=== PATIENT | male | born 1990 | race Caucasian/White ===

== ENCOUNTER 2016-08-03 13:25 | Emergency (ER) | payer OTHER ==
[~2016-08-03] VITALS: Ht 175.3 cm; Wt 71.0 kg
[~2016-08-03 13:25] MED LIST: AMLO-110 PO; SRQ/200 PO
[2016-08-03 13:29] VITALS: TEMP 36.7; Ht 175.3 cm; Wt 71.0 kg
[2016-08-03 14:28] VITALS: BP 127/82; PULSE 75; O2SAT 97
--- NOTE | 2016-08-03 17:02 | EMERGENCY ROOM VISIT NOTE ---
ED Visit Note First contact with patient: 13:59 Chief complaint: Left long finger tip laceration HPI: This 26-year-old white male presents for evaluation of a laceration on the tip of his left long finger. 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 He accidentally cut the tip of his left long finger. Bleeding was controlled with pressure. They deny any numbness, tingling, or loss of motion. No other complaints. Tetanus is believed to be up -to-date. Pain is 1/10. Left hand dominant. No other fingers are involved. Supplemental sheet was reviewed and signed. Previous surgeries: None Medical history: Significant for stage IV kidney disease Current Medications: Filed in patient's chart Allergies: NKDA Tetanus: within 10 years according to the patient Family History: Significant for cancer and kidney stones. Parents are living. Social History: Employed at [employer]. Lives with his girlfriend. No tobacco use , no EtOH use. REVIEW OF SYSTEM: HEENT: No dizziness, visual problems, hearing loss, or tinnitus. There is no difficulty swallowing and no oral lesions are present. PULMONARY: No cough, shortness of breath, sputum production or hemoptysis. CARDIOVASCULAR: No chest pain, palpitations, shortness of breath or peripheral edema. GASTROINTESTINAL: No diarrhea, constipation, nausea, vomiting, or abdominal pain. GENITOURINARY: No dysuria, frequency, urgency or nocturia. NEUROLOGIC: No weakness, muscle tenderness, epilepsy or history of neurological problems. MUSCULOSKELETAL: No history of joint tenderness/swelling. No history of arthritis or arthralgias. SKIN: No rashes or lesions. PSYCHIATRIC: No history of depression or mental illness. ENDOCRINE: No history of diabetes, thyroid disorders, or abnormal hair growth. Physical Exam: Vitals: Afebrile. Reviewed and filed in patient's chart General: Well-developed, well-nourished, young white male, in no acute distress. No obvious discomfort. He is sitting on the bed. Alert and oriented. Skin: Warm and dry with good turgor. No rashes. No ecchymosis or erythema. The patient is not diaphoretic. No abrasions. The patient has a 6 mm laceration present on the tip of his left long finger. Bleeding is controlled. No foreign material is present.. Musculoskeletal: Patient has intact motor function to the long finger. Intact motion to the MCP, PIP, and DIP joints. Strength is 5/5 for resisted flexion and extension of the long finger. Neurologic: Gross sensation is intact across the tip of the long finger by soft touch. Capillary refill is equal to the other digits.. Impression: Left long finger tip 6 mm laceration Procedure: Informed oral consent was obtained for repair. Long fingertip was irrigated using normal sterile saline and sterile gauze. A finger tourniquet was applied to control bleeding. Wound was closed using Dermabond in multiple layers. Excellent wound edge approximation was achieved. Hemostasis was achieved. Tourniquet was in place for less than 5 minutes. Plan: Patient was educated regarding today's findings. Conservative care measures were discussed. Cleanse the wound daily with soap and water. Avoid antibiotic ointment. Dermabond will wear off on its own. He may shower. Dermabond handout was provided. He may return to work. Tylenol every 6 hours as needed for discomfort. He may also Ice and elevate intermittently as needed for discomfort. Wound care handout was provided. He may shower. Avoid soaking or swimming for two weeks. Return to the ER for any acute changes or signs of infection. Current/Historical Medications Scheduled Amlodipine (Norvasc), 5 MG PO HS Allergies Coded Allergies: No Known Allergies (Unverified , 10/31/15) Vital Signs Date Time Temp Pulse Resp B/P (MAP) Pulse Ox O2 Delivery O2 Flow Rate FiO2 08/03/16 14:28 75 18 127/82 97 08/03/16 13:29 36.7 81 18 143/87 96 Room Air Departure Information Impression Primary Impression: Finger laceration Dispostion Home / Self-Care Condition FAIR Forms WORK / SCHOOL INSTRUCTIONS, HOME CARE DOCUMENTATION FORM, MOTRIN USE, TYLENOL USE, IMPORTANT VISIT INFORMATION Patient Instructions [facility], ED Laceration Ext Skin Glue Additional Instructions Tylenol and Motrin every 6 hours as needed for discomfort Dermabond will fall off on its own in 5-7 days-do not pick at it You may wash your hands normally-do not apply antibiotic ointment to the finger Return to the ED for any other concerns or signs of infection You may return to work
== END 2016-08-03 14:30 | disposition home or self-care (01) ==
LOC: C.EDB 13:27 → C.EDD 14:30
DX: S61.213A Laceration without foreign body of left middle finger without damage to nail, initial encounter (principal); W26.8XXA Contact with other sharp object(s), not elsewhere classified, initial encounter; Y92.511 Restaurant or cafe as the place of occurrence of the external cause; Y99.0 Civilian activity done for income or pay

== ENCOUNTER 2017-07-06 21:15 | Emergency (ER) | payer SELFPAY ==
[~2017-07-06] VITALS: Ht 175.3 cm; Wt 65.7 kg
[~2017-07-06 21:15] MED LIST changes: -SRQ/200 PO
[2017-07-06 21:52] VITALS: TEMP 36.7; Ht 175.3 cm; Wt 65.7 kg
[2017-07-06] MEDS ORDERED: MoRPHine SULFATE 4 MG/ML 1 ML CARP\\VIAL IV STA (22:08)
[2017-07-06] MEDS ORDERED: ONDANSETRON INJ 2 MG/ML 2 ML VIAL IV STA (22:08)
[2017-07-06 22:44] LABS: BASO % 0.3 %; BASO ABS # 0.02 K/uL (0-0.2); EOS % 1.9 %; EOS ABS # 0.13 K/uL (0-0.5); HEMATOCRIT 37.9 % (42-52); HEMOGLOBIN 12.9 g/dL (14.0-18.0); IG# 0.01 K/uL (0.00-0.02); LYMPH % 28.7 %; LYMPH ABS # 1.92 K/uL (1.2-3.4); MEAN CELL VOLUME 85.7 fL (80-100); MEAN CORPUSCULAR HEMOGLOBIN 29.2 pg (25-34); MEAN PLATELET VOLUME 10.1 fL (7.4-10.4); MONO % 6.1 %; MONO ABS # 0.41 K/uL (0.11-0.59); NEUT % 62.9 %; NEUT ABS # 4.19 K/uL (1.4-6.5); PLATELET COUNT 219 K/uL (130-400); RED CELL DISTRIBUTION WIDTH CV 12.8 % (11.5-14.5); RED CELL DISTRIBUTION WIDTH SD 40.3 fL (36.4-46.3); WHITE BLOOD COUNT 6.68 K/uL (4.8-10.8)
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
[2017-07-06 23:04] LABS: CALCIUM 8.8 mg/dl (8.5-10.1); CREATININE 2.75 mg/dl (0.60-1.40); POTASSIUM 3.9 mmol/L (3.5-5.1)
[2017-07-07] MEDS ORDERED: TROLAMINE SALICYLATE 10% CRM 255 APPLN/85 GM TUBE EXT STA (01:26)
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
[2017-07-07 01:39] VITALS: BP 128/72; PULSE 88; O2SAT 98
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
== END 2017-07-07 01:42 | disposition home or self-care (01) ==
LOC: C.EDB 21:16 → C.EDA 07-07 01:42
DX: M54.42 Lumbago with sciatica, left side (principal); M54.41 Lumbago with sciatica, right side; N18.4 Chronic kidney disease, stage 4 (severe); M51.86 Other intervertebral disc disorders, lumbar region; I12.9 Hypertensive chronic kidney disease with stage 1 through stage 4 chronic kidney disease, or unspecified chronic kidney disease; Z91.14 Patient's other noncompliance with medication regimen

== ENCOUNTER 2021-07-17 15:31 | Inpatient (IN) ==
[2021-07-17 16:33] LABS: Basophils # (auto) 0.02 K/uL (0-0.2); Basophils % (auto) 0.3 %; Eosinophils # (auto) 0.79 K/uL (0-0.5); Eosinophils % (auto) 11.4 %; Hematocrit (blood only) 36.7 % (42-52); Hemoglobin 12.4 g/dL (14.0-18.0); Immature Granulocytes # (auto) 0.01 K/uL (0.00-0.02); Immature Granulocytes % (auto) 0.1 %; Lymphocytes # (auto) 2.26 K/uL (1.2-3.4); Lymphocytes % (auto) 32.8 %; Mean Corpuscular Hemoglobin 29.7 pg (25-34); Mean Corpuscular Hgb Conc 33.8 g/dL (32-36); Mean Platelet Volume 9.4 fL (7.4-10.4); Monocytes # (auto) 0.68 K/uL (0.11-0.59); Monocytes % (auto) 9.9 %; Neutrophils # (auto) 3.14 K/uL (1.4-6.5); Neutrophils % (auto) 45.5 %; Platelet Count 265 K/uL (130-400); RDW Coefficient of Variation 14.7 % (11.5-14.5); RDW Standard Deviation 47.3 fL (36.4-46.3); Red Blood Count 4.17 M/uL (4.7-6.1)
[2021-07-17 17:27] LABS: Albumin Globulin Ratio 1.7 (0.9-2); Albumin Level 4.4 gm/dl (3.4-5.0); BUN Creatinine Ratio 11.5 (10-20); Bilirubin,Total 0.4 mg/dl (0.2-1.0); Calcium 9.4 mg/dl (8.5-10.1); Creatinine Clr Calc Pharmacy 20.5 ml/min; Est GFR (African American) 17.6 ml/min; Est GFR (Non-African American) 15.2 ml/min; Globulin 2.6 gm/dl (2.5-4.0); Potassium 5.8 mmol/L (3.5-5.1)
[2021-07-17] MEDS ORDERED: SODIUM CHLORIDE 0.9% 500 ML IV ONE ×2 (17:48→18:41)
[2021-07-17 18:50] LABS: Base Excess VBG -8.8 mEq/L; HCO3 VBG 19 mmol/L; PCO2 VBG 47 mmHg (38-50); PO2 VBG 23 mmHg; pH VBG 7.22 (7.36-7.41)
[2021-07-17 19:15] LABS: Oxygen Saturation VBG < 60.0 %
[2021-07-17 20:10] LABS: Appearance Urine Clear (Clear); Bilirubin Urine Negative (Negative); Blood Urine Negative (Negative); Color Urine Yellow; Glucose Urine UA Negative (Negative); Ketones Urine Negative (Negative); Leukocyte Esterase Urine Negative (Negative); Nitrite Urine Negative (Negative); Protein Urine Negative (Negative); Specific Gravity Urine 1.014 (1.000-1.030); Urobilinogen Urine Negative (Negative)
[2021-07-17 21:04] LABS: BUN Creatinine Ratio 12.2 (10-20); Calcium 8.6 mg/dl (8.5-10.1); Creatinine Clr Calc Pharmacy 22.1 ml/min; Est GFR (African American) 19.3 ml/min; Est GFR (Non-African American) 16.7 ml/min; Potassium 6.7 mmol/L (3.5-5.1)
[2021-07-17] MEDS ORDERED: SODIUM CHLORIDE 0.9% 1000ML 1,000 ML IV ONE ×2 (21:25→23:54)
[2021-07-17] MEDS ORDERED: LACTATED RINGER'S 1,000 ML IV ONE (21:27)
[2021-07-17] MEDS ORDERED: PATIROMER CALCIUM SORBITEX 8.4 GM PACK PO STA (21:34)
[2021-07-17 22:11] LABS: BUN Creatinine Ratio 12.3 (10-20); Calcium 8.5 mg/dl (8.5-10.1); Creatinine Clr Calc Pharmacy 22.7 ml/min; Est GFR (Non-African American) 17.2 ml/min; Potassium 6.3 mmol/L (3.5-5.1)
[2021-07-17] MEDS ORDERED: DEXTROSE 50% 50 ML SYRINGE IV ONE (22:21)
[2021-07-17] MEDS ORDERED: NovoLIN-R INSULIN PER UNIT CHARGE IV STA (22:21)
[2021-07-17] MEDS: CALCIUM GLUCONATE 1,000 MG/60 ML BAG IV SCH ×3 (22:37→23:16)
--- NOTE | 2021-07-17 22:52 | Emergency Department Note ---
Impression & Plan Hyperkalemia, Acute on chronic renal insufficiency, Hyperchloremia, Acidemia ED Provider Note NAME: AURELIA CURTIS AGE: 31 SEX: M ARRIVES VIA: Walk-In INFORMANT: Jon ED PROVIDER(S): Akil Hewitt MD CHIEF COMPLAINT: Referred. Hyperkalemia. PLAN: Disposition: Admit MEDICAL DECISION MAKING: The patient is a pleasant 39-year-old gentleman with a past medical history of CKD and history of medical noncompliance who presents to the emergency department, accompanied by his partner for evaluation of hyperkalemia which was noted on routine outpatient blood work that was performed yesterday in preparation for an upcoming colonoscopy in August per the patient's report. Patient otherwise denies any symptoms including denies lightheadedness, chest pain, shortness of breath, abdominal pain, changes in urinary frequency. He initially denies any concerns for dehydration or decreased oral intake however he only reports that today he had a red bull and a single bottle of water. The patient was recently admitted to this facility on 07/05 for epididymitis and acute on chronic renal insufficiency. Unfortunately the patient had left AMA prior to recommended time. However he reports he f/u with his pcp and started antibiotic and has had improved/resolved symptoms. On arrival the patient is well appearing but in in no acute distress, afebrile stable vital signs. He appears clinically dry. Exam is otherwise unremarkable. EKG without overt acute ischemia. There is no QRS widening or high-grade block. WBC and platelets wnl. H/H similar to prior. Chemistry with bicarbonate 19 similar to prior with normal agap. Cr. 4.7 slightly increased from prior. Potassium 5.8 increased from 5.4 previously. Chloride 114 increased from prior. Sodium 140. LFTs without significant abnormality. Given the patient is well-appearing and reports he continues to urinate, it was suspected that the patient's hyperkalemia would easily be reversible with hydration. He was given 1 L of normal saline and bmp/K was then rechecked initially on i-STAT BMP which demonstrated a potassium of 6.1. Given this was an i-STAT there was suspicion that this may have been hemolyzed and so a repeat lab sample was sent but this appears to have been drawn from his left upper extremity which is where his blood pressure cuff had been and so despite having an improved trend in his creatinine to 4.3 his potassium resulted at 6.7.Nevertheless, at this point I did meet with the patient and recommended that he be admitted to manage his hyperkalemia. The patient was resistant to this idea because he felt well and so we agreed to repeat a third BMP to assess if the value was erroneous or not. This subsequently was again elevated at 6.3 though with continued improving trend in his creatinine to 4.2.His chloride did uptrend to 118 and his bicarbonate declined to 15 with normal Agap, which likely explains his acidemia noted on VBG with pH 7.2. IVF subsequently switched to LR. I did express to the patient that the potassium of this degree is life- threatening and can result in arrhythmias and cannot be effectively managed outpatient. Patient was still displeased but ultimately did agree to be admitted to the hospital and his partner at the bedside continue to be supportive of this. He had been given Veltassa and was ordered for additional treatment of his hyperkalemia with insulin, D50 and calcium.Case was discussed with Dr. [facility] who will evaluate the patient for admission. Triage Nursing notes reviewed and agree them. Prior medical records reviewed Vital Signs: reviewed and remarkable for no significant abnormalities Differential diagnosis: Infection, dehydration, metabolic abnormality, hypo/hyperglycemia, electrolyte disturbance, anemia, hypoxia, cardiac sources, intracerebral event, toxicologic, neurologic, as well as other pathologies. ER treatment provided: See below. Diagnostics interpreted by me: ECG: Sinus bradycardia with sinus arrhythmia, 58 bpm, no ectopy, no overt ST elevation or depression. QTC 367, QRS 86. Cardiac Monitoring: An order for continuous cardiac monitoring was placed and demonstrated NSR, 63 bpm, no ectopy. Laboratory studies: See below Imaging studies: See below Consultation(s): Case was discussed with Dr. [facility] an[facility] who will evaluate the patient for admission. HPI: The patient is a pleasant 39-year-old gentleman with a past medical history of CKD and history of medical noncompliance who presents to the emergency department, accompanied by his partner for evaluation of hyperkalemia which was noted on routine outpatient blood work that was performed yesterday in preparation for an upcoming colonoscopy in August per the patient's report. Patient otherwise denies any symptoms including denies lightheadedness, chest pain, shortness of breath, abdominal pain, changes in urinary frequency. He initially denies any concerns for dehydration or decreased oral intake however he only reports that today he had a red bull and a single bottle of water. The patient was recently admitted to this facility on 07/05 for epididymitis and acute on chronic renal insufficiency. Unfortunately the patient had left AMA prior to recommended time. However he reports he f/u with his pcp and started antibiotic and has had improved/resolved symptoms. ROS: See above HPI for pertinent positives & negatives. A total of 10 systems reviewed and were otherwise negative. VITALS:See Below PHYSICAL EXAMINATION: GENERAL: Awake, alert, well-appearing, in no distress HENT: Normocephalic, atraumatic. Oropharynx with dry mucous membranes and otherwise unremarkable. EYES: Normal conjunctiva. Sclera non-icteric. NECK: Supple. No nuchal rigidity. FROM. No JVD. RESPIRATORY: Clear to auscultation. CARDIAC: Regular rate, normal rhythm. Extremities warm and well perfused. Pulses equal. ABDOMEN: Soft, non-distended. No tenderness to palpation. No rebound or guarding. No masses. RECTAL: Deferred. : Unremarkable. No testicular or epididymal tendnerness. MUSCULOSKELETAL: Chest examination reveals no tenderness. The back is symmetrical on inspection without obvious abnormality. There is no CVA tenderness to palpation. No joint edema. LOWER EXTREMITIES: Calves are equal size bilaterally and non-tender. No edema. No discoloration. NEURO: Normal sensorium. No sensory or motor deficits noted. SKIN: No rash or jaundice noted. ED COURSE: Critical Care: I have personally spent greater than 75 minutes of critical care time in the direct management of this patient. This includes bedside care, interpretation of diagnostic studies, and testing, discussion with consultants, patient, and family members, and other required patient management activities. This 75 minutes is in excess of all separately billable procedures. Akil Hewitt MD Past Med/Surg History Medical History Anemia Chronic kidney disease stage 4 since at least 2017 > follows with [facility] Myles HTN (hypertension) Nephrolithiasis Tobacco abuse Surgical History [place] teeth extracted Family History Father Kidney stone Social History Smoking Status: Current every day smoker Tobacco Type: Cigarettes Cigarettes Per Day: 6 cigs per day; Second Hand Exposure: No; Hx Alcohol Use: Yes Alcohol type: beer, wine and hard liquor Hx Substance Use: Yes Substance Use Type Other:: marijuana 2-3 times per day Preferred Language: Turkmen Communication Ability: Effective [employer] Manager Required: No Beliefs That Will Affect Care: None Current Living Situation: Spouse Feels Safe at Home: Yes Assistive Devices: None Allergies Allergies Allergy/AdvReac Type Severity Reaction Status Date / Time No Known Allergies Allergy Verified 07/17/21 18:58 Home Meds Home Medications Medication Instructions Recorded Confirmed amlodipine 5 mg tablet (Norvasc) 10 mg PO QAM 07/27/20 07/17/21 cholecalciferol (vitamin D3) 50 50 mcg PO QAM 07/27/20 07/17/21 mcg (2,000 unit) capsule (Vitamin D3) lisinopril 5 mg tablet 5 mg PO QAM 07/27/20 07/17/21 acetaminophen 500 mg tablet 1,000 mg PO DIRECTED PRN 07/05/21 07/17/21 (Tylenol Extra Strength) levofloxacin 500 mg tablet 500 mg PO QAM 07/17/21 07/17/21 Results & Data (ED) Vital Signs Vital Signs - 24 hr 07/17/21 15:43 07/17/21 18:30 07/17/21 19:00 Temperature 36.6 C Temperature Source Skin Pulse Rate 90 138 H 125 H Pulse Rate from SpO2 Sensor 61 67 Respiratory Rate 18 21 19 Blood Pressure 113/69 113/70 116/75 Blood Pressure Mean 83 84 88 Pulse Oximetry 99 92 100 Oxygen Delivery Method Sepsis Recent Fever Within 48 Hours No Sepsis New/Unexplained Change in Mental Status No Sepsis Action Taken by Nursing No Action Required 07/17/21 19:30 07/17/21 20:00 07/17/21 20:30 Temperature Temperature Source Pulse Rate 133 H 134 H Pulse Rate from SpO2 Sensor 71 67 63 Respiratory Rate 26 H 20 Blood Pressure 134/87 Blood Pressure Mean 102 Pulse Oximetry 100 100 100 Oxygen Delivery Method Sepsis Recent Fever Within 48 Hours Sepsis New/Unexplained Change in Mental Status Sepsis Action Taken by Nursing 07/17/21 21:00 07/17/21 21:30 07/17/21 22:00 Temperature Temperature Source Pulse Rate 129 H 121 H 128 H Pulse Rate from SpO2 Sensor 64 62 65 Respiratory Rate 19 18 22 Blood Pressure 125/79 127/80 125/82 Blood Pressure Mean 94 95 96 Pulse Oximetry 99 99 99 Oxygen Delivery Method Sepsis Recent Fever Within 48 Hours Sepsis New/Unexplained Change in Mental Status Sepsis Action Taken by Nursing 07/17/21 23:00 07/18/21 00:00 Temperature Temperature Source Pulse Rate 80 84 Pulse Rate from SpO2 Sensor 75 84 Respiratory Rate 16 15 Blood Pressure 137/80 117/71 Blood Pressure Mean 99 86 Pulse Oximetry 99 99 Oxygen Delivery Method Room Air Sepsis Recent Fever Within 48 Hours Sepsis New/Unexplained Change in Mental Status Sepsis Action Taken by Nursing Laboratory Data Attestation: I reviewed the patient's lab results. Result diagrams: 07/17/21 16:20 07/18/21 00:05 Lab Results 07/17/21 07/17/21 07/17/21 Range/Units 06:23 16:20 16:20 WBC 6.90 (4.8-10.8) K/uL RBC 4.17 L (4.7-6.1) M/uL Hgb 12.4 L (14.0-18.0) g/dL Hct 36.7 L (42-52) % MCV 88.0 (80-100) fL MCH 29.7 (25-34) pg MCHC 33.8 (32-36) g/dL RDW Std Deviation 47.3 H (36.4-46.3) fL RDW Coeff of William 14.7 H (11.5-14.5) % Plt Count 265 (130-400) K/uL MPV 9.4 (7.4-10.4) fL Immature Gran % (Auto) 0.1 % Neut % (Auto) 45.5 % Lymph % (Auto) 32.8 % Da[place]hin % (Auto) 9.9 % Eos % (Auto) 11.4 % Baso % (Auto) 0.3 % Neut # (Auto) 3.14 (1.4-6.5) K/uL Lymph # (Auto) 2.26 (1.2-3.4) K/uL [place]hin # (Auto) 0.68 H (0.11-0.59) K/uL Eos # (Auto) 0.79 H (0-0.5) K/uL Baso # (Auto) 0.02 (0-0.2) K/uL Immature Gran # (Auto) 0.01 (0.00-0.02) K/uL VBG pH 7.22 L (7.36-7.41) VBG pCO2 47 (38-50) mmHg VBG pO2 23 mmHg VBG HCO3 19 mmol/L VBG O2 Saturation < 60.0 % VBG Base Excess -8.8 mEq/L Barometric Pressure 728.5 mm/Hg Sodium 140 (136-145) mmol/L Potassium 5.8 H (3.5-5.1) mmol/L Chloride 114 H (98-107) mmol/L Carbon Dioxide 19 L (21-32) mmol/L Anion Gap 7 (3-11) BUN 55 H (6-23) mg/dl Creatinine 4.77 H* (0.6-1.4) mg/dl Est Cr Clr Drug Dosing 20.5 ml/min Est GFR ( Amer) 17.6 ml/min Est GFR (Non-Af Amer) 15.2 ml/min BUN/Creatinine Ratio 11.5 (10-20) Glucose 77 (70-99(Fasting)) mg/dl POC Glucose (70-99) mg/dl Calcium 9.4 (8.5-10.1) mg/dl Magnesium (1.7-2.4) mg/dl Total Bilirubin 0.4 (0.2-1.0) mg/dl AST 19 (13-39) U/L ALT 17 (7-52) U/L Alkaline Phosphatase 51 (34-104) U/L Total Protein 7.0 (6.0-8.3) gm/dl Albumin 4.4 (3.4-5.0) gm/dl Globulin 2.6 (2.5-4.0) gm/dl Albumin/Globulin Ratio 1.7 (0.9-2) TSH (0.300-4.500) uIu/ml Urine Color Urine Appearance (Clear) Urine pH (4.5-7.5) Ur Specific Tanner (1.000-1.030) Urine Protein (Negative) Urine Glucose (UA) (Negative) Urine Ketones (Negative) Urine Blood (Negative) Urine Nitrite (Negative) Urine Bilirubin (Negative) Urine Urobilinogen (Negative) Ur Leukocyte Esterase (Negative) SARS-CoV-2, RNA, NAAT (NEGATIVE) 07/17/21 07/17/21 07/17/21 Range/Units 19:30 20:01 21:31 WBC (4.8-10.8) K/uL RBC (4.7-6.1) M/uL Hgb (14.0-18.0) g/dL Hct (42-52) % MCV (80-100) fL MCH (25-34) pg MCHC (32-36) g/dL RDW Std Deviation (36.4-46.3) fL RDW Coeff of William (11.5-14.5) % Plt Count (130-400) K/uL MPV (7.4-10.4) fL Immature Gran % (Auto) % Neut % (Auto) % Lymph % (Auto) % [place] % (Auto) % Eos % (Auto) % Baso % (Auto) % Neut # (Auto) (1.4-6.5) K/uL Lymph # (Auto) (1.2-3.4) K/uL [place]hin # (Auto) (0.11-0.59) K/uL Eos # (Auto) (0-0.5) K/uL Baso # (Auto) (0-0.2) K/uL Immature Gran # (Auto) (0.00-0.02) K/uL VBG pH (7.36-7.41) VBG pCO2 (38-50) mmHg VBG pO2 mmHg VBG HCO3 mmol/L VBG O2 Saturation % VBG Base Excess mEq/L Barometric Pressure mm/Hg Sodium 141 139 (136-145) mmol/L Potassium 6.7 H* 6.3 H* (3.5-5.1) mmol/L Chloride 118 H 118 H (98-107) mmol/L Carbon Dioxide 19 L 15 L (21-32) mmol/L Anion Gap 4 6 (3-11) BUN 54 H 53 H (6-23) mg/dl Creatinine 4.42 H D 4.30 H (0.6-1.4) mg/dl Est Cr Clr Drug Dosing 22.1 22.7 ml/min Est GFR ( Amer) 19.3 20.0 ml/min Est GFR (Non-Af Amer) 16.7 17.2 ml/min BUN/Creatinine Ratio 12.2 12.3 (10-20) Glucose 86 91 (70-99(Fasting)) mg/dl POC Glucose (70-99) mg/dl Calcium 8.6 8.5 (8.5-10.1) mg/dl Magnesium (1.7-2.4) mg/dl Total Bilirubin (0.2-1.0) mg/dl AST (13-39) U/L ALT (7-52) U/L Alkaline Phosphatase (34-104) U/L Total Protein (6.0-8.3) gm/dl Albumin (3.4-5.0) gm/dl Globulin (2.5-4.0) gm/dl Albumin/Globulin Ratio (0.9-2) TSH (0.300-4.500) uIu/ml Urine Color Yellow Urine Appearance Clear (Clear) Urine pH 5.0 (4.5-7.5) Ur Specific Tanner 1.014 (1.000-1.030) Urine Protein Negative (Negative) Urine Glucose (UA) Negative (Negative) Urine Ketones Negative (Negative) Urine Blood Negative (Negative) Urine Nitrite Negative (Negative) Urine Bilirubin Negative (Negative) Urine Urobilinogen Negative (Negative) Ur Leukocyte Esterase Negative (Negative) SARS-CoV-2, RNA, NAAT (NEGATIVE) 07/17/21 07/17/21 07/17/21 Range/Units 21:31 22:35 22:50 WBC (4.8-10.8) K/uL RBC (4.7-6.1) M/uL Hgb (14.0-18.0) g/dL Hct (42-52) % MCV (80-100) fL MCH (25-34) pg MCHC (32-36) g/dL RDW Std Deviation (36.4-46.3) fL RDW Coeff of William (11.5-14.5) % Plt Count (130-400) K/uL MPV (7.4-10.4) fL Immature Gran % (Auto) % Neut % (Auto) % Lymph % (Auto) % [place] % (Auto) % Eos % (Auto) % Baso % (Auto) % Neut # (Auto) (1.4-6.5) K/uL Lymph # (Auto) (1.2-3.4) K/uL [place] # (Auto) (0.11-0.59) K/uL Eos # (Auto) (0-0.5) K/uL Baso # (Auto) (0-0.2) K/uL Immature Gran # (Auto) (0.00-0.02) K/uL VBG pH (7.36-7.41) VBG pCO2 (38-50) mmHg VBG pO2 mmHg VBG HCO3 mmol/L VBG O2 Saturation % VBG Base Excess mEq/L Barometric Pressure mm/Hg Sodium (136-145) mmol/L Potassium (3.5-5.1) mmol/L Chloride (98-107) mmol/L Carbon Dioxide (21-32) mmol/L Anion Gap (3-11) BUN (6-23) mg/dl Creatinine (0.6-1.4) mg/dl Est Cr Clr Drug Dosing ml/min Est GFR ( Amer) ml/min Est GFR (Non-Af Amer) ml/min BUN/Creatinine Ratio (10-20) Glucose (70-99(Fasting)) mg/dl POC Glucose 88 (70-99) mg/dl Calcium (8.5-10.1) mg/dl Magnesium 2.0 (1.7-2.4) mg/dl Total Bilirubin (0.2-1.0) mg/dl AST (13-39) U/L ALT (7-52) U/L Alkaline Phosphatase (34-104) U/L Total Protein (6.0-8.3) gm/dl Albumin (3.4-5.0) gm/dl Globulin (2.5-4.0) gm/dl Albumin/Globulin Ratio (0.9-2) TSH (0.300-4.500) uIu/ml Urine Color Urine Appearance (Clear) Urine pH (4.5-7.5) Ur Specific Tanner (1.000-1.030) Urine Protein (Negative) Urine Glucose (UA) (Negative) Urine Ketones (Negative) Urine Blood (Negative) Urine Nitrite (Negative) Urine Bilirubin (Negative) Urine Urobilinogen (Negative) Ur Leukocyte Esterase (Negative) SARS-CoV-2, RNA, NAAT NEGATIVE (NEGATIVE) 07/18/21 07/18/21 Range/Units 00:05 00:05 WBC (4.8-10.8) K/uL RBC (4.7-6.1) M/uL Hgb (14.0-18.0) g/dL Hct (42-52) % MCV (80-100) fL MCH (25-34) pg MCHC (32-36) g/dL RDW Std Deviation (36.4-46.3) fL RDW Coeff of William (11.5-14.5) % Plt Count (130-400) K/uL MPV (7.4-10.4) fL Immature Gran % (Auto) % Neut % (Auto) % Lymph % (Auto) % [place] % (Auto) % Eos % (Auto) % Baso % (Auto) % Neut # (Auto) (1.4-6.5) K/uL Lymph # (Auto) (1.2-3.4) K/uL [place] # (Auto) (0.11-0.59) K/uL Eos # (Auto) (0-0.5) K/uL Baso # (Auto) (0-0.2) K/uL Immature Gran # (Auto) (0.00-0.02) K/uL VBG pH (7.36-7.41) VBG pCO2 (38-50) mmHg VBG pO2 mmHg VBG HCO3 mmol/L VBG O2 Saturation % VBG Base Excess mEq/L Barometric Pressure mm/Hg Sodium 141 (136-145) mmol/L Potassium 4.9 D (3.5-5.1) mmol/L Chloride 118 H (98-107) mmol/L Carbon Dioxide 15 L (21-32) mmol/L Anion Gap 8 (3-11) BUN 51 H (6-23) mg/dl Creatinine 4.16 H (0.6-1.4) mg/dl Est Cr Clr Drug Dosing 23.5 ml/min Est GFR ( Amer) 20.8 ml/min Est GFR (Non-Af Amer) 17.9 ml/min BUN/Creatinine Ratio 12.3 (10-20) Glucose 56 L (70-99(Fasting)) mg/dl POC Glucose (70-99) mg/dl Calcium 10.0 (8.5-10.1) mg/dl Magnesium (1.7-2.4) mg/dl Total Bilirubin (0.2-1.0) mg/dl AST (13-39) U/L ALT (7-52) U/L Alkaline Phosphatase (34-104) U/L Total Protein (6.0-8.3) gm/dl Albumin (3.4-5.0) gm/dl Globulin (2.5-4.0) gm/dl Albumin/Globulin Ratio (0.9-2) TSH 1.935 (0.300-4.500) uIu/ml Urine Color Urine Appearance (Clear) Urine pH (4.5-7.5) Ur Specific Tanner (1.000-1.030) Urine Protein (Negative) Urine Glucose (UA) (Negative) Urine Ketones (Negative) Urine Blood (Negative) Urine Nitrite (Negative) Urine Bilirubin (Negative) Urine Urobilinogen (Negative) Ur Leukocyte Esterase (Negative) SARS-CoV-2, RNA, NAAT (NEGATIVE) Administered Medications Sodium Chloride (Nss 1000ml) 1,000 mls @ 200 mls/hr IV .Q5H ONE Stop: 07/18/21 04:53 Last Admin: 07/18/21 00:10 Dose: 200 mls/hr Documented by: [id number] Discontinued Medications Dextrose (Dextrose 50% 50 Ml Syringe) 100 ml IV NOW ONE Stop: 07/17/21 22:22 Last Admin: 07/17/21 22:36 Dose: 100 ml Documented by: [id number] Sodium Chloride (Nss) 500 mls @ 999 mls/hr IV .Q31M ONE Stop: 07/17/21 18:18 Last Infusion: 07/17/21 18:32 Dose: 0 mls/hr Documented by: [id number] Admin: 07/17/21 18:01 Dose: 999 mls/hr Documented by: [id number] Sodium Chloride (Nss) 500 mls @ 999 mls/hr IV .Q31M ONE Stop: 07/17/21 19:11 Last Infusion: 07/17/21 19:48 Dose: 0 mls/hr Documented by: [id number] Admin: 07/17/21 19:00 Dose: 999 mls/hr Documented by: [id number] Sodium Chloride (Nss 1000ml) 1,000 mls @ 999 mls/hr IV .Q1H1M ONE Stop: 07/17/21 22:25 Last Admin: 07/17/21 22:20 Dose: Not Given Documented by: [id number] Lactated Ringer's (Lr) 1,000 mls @ 999 mls/hr IV .Q1H1M ONE Stop: 07/17/21 22:27 Last Infusion: 07/17/21 22:58 Dose: 0 mls/hr Documented by: [id number] Admin: 07/17/21 21:34 Dose: 999 mls/hr Documented by: [id number] Calcium Gluconate () 1,000 mg in 60 mls @ 240 mls/hr IV Q15M JEAN MARIE Stop: 07/17/21 23:14 Last Infusion: 07/17/21 23:57 Dose: 0 mls/hr Documented by: [id number] Admin: 07/17/21 23:16 Dose: 240 mls/hr Documented by: [id number] Infusion: 07/17/21 23:16 Dose: 240 mls/hr Documented by: [id number] Admin: 07/17/21 23:06 Dose: 240 mls/hr Documented by: [id number] Infusion: 07/17/21 22:52 Dose: 240 mls/hr Documented by: [id number] Admin: 07/17/21 22:37 Dose: 240 mls/hr Documented by: [id number] Insulin Human Regular (Novolin-R Insulin Per Unit Charge) 10 units IV NOW STA Stop: 07/17/21 22:22 Last Admin: 07/17/21 22:34 Dose: 10 units Documented by: [id number] Cosigned by: [id number] Patiromer (Patiromer Calcium Sorbitex 8.4 Gm Pack) 8.4 gm PO NOW STA Stop: 07/17/21 21:35 Last Admin: 07/17/21 22:10 Dose: 8.4 gm Documented by: [id number] Discharge Plan Visit Data Chief Complaint: Referred by Doctor Stated Complaint: HIGH POTASSIUM LEVELS, REFERRED BY DR ED Provider: Akil Hewitt Discharge Problem: Hyperkalemia, Acute on chronic renal insufficiency, Hyperchloremia, Acidemia Patient Disposition: Being Evaluated by Hospitalist Forms Stand Alone Forms: [facility] Prescriptions Prescriptions: No Action lisinopril 5 mg Tablet 5 mg PO QAM RF: 0 cholecalciferol (vitamin D3) [Vitamin D3] 50 mcg (2,000 unit) Capsule 50 mcg PO QAM RF: 0 amlodipine [Norvasc] 5 mg tablet 10 mg PO QAM RF: 0 acetaminophen [Tylenol Extra Strength] 500 mg Tablet 1,000 mg PO DIRECTED PRN (Reason: Pain) RF: 0 levofloxacin 500 mg tablet 500 mg PO QAM RF: 0 Referrals Referrals: London Minor MD [Primary Care Provider] -
--- NOTE | 2021-07-18 00:28 | History & Physical Report ---
Date of Service July 18, 2021 Assessment & Plan (1) Hyperkalemia: Plan: ARF on CKD NAGMA secondary to above hypertension, stable chronic anemia, hemoglobin at baseline chronic diarrhea, outpatient colonoscopy contemplated by [facility] as soft outpatient visit from last week recent bout of epididymitis, improved symptoms ongoing Levaquin Rx ongoing tobacco abuse Medical telemetry Continue IVF Stop lisinopril Follow renal function Nephrology consult Re: Hyperkalemia, ARF on CKD Complete Levaquin course dosed for renal function for epididymitis Nicotine gum as needed DVT prophylaxis per Heparin subcu Full code Text document was generated using [employer] voice recognition software. It may contain grammatical or spelling errors. Kindly contact undersigned for clarification of any documentation item in question. History of Present Illness Chief Complaint: Hyperkalemia, abnormal blood work Primary Care Provider: London Minor MD History obtained from patient and records. Medical history significant for hypertension, CRI (baseline creatinine 4), chronic anemia (baseline hemoglobin 12), chronic diarrhea, recent bout of epididymitis ongoing Levaquin Rx, ongoing tobacco abuse. Last confinement 2 weeks ago for hyperkalemia, ARF on CKD, epididymitis. Serum creatinine 4.34. Patient received IM ceftriaxone 1 dose and Levaquin at the ER for epididymitis. Patient signed out AGAINST MEDICAL ADVICE. Patient seen at [facility] [place] [facility] 3 days ago. Outpatient labs ordered and drawn last July 16. Serum creatinine noted to be 4.5, serum potassium 6.5. Patient denies chest pain, SOB, fluid retention, abdominal pain. Usual diarrhea symptoms. Patient directed to ER by outpatient provider. IVF, IV insulin, Veltassa, calcium gluconate administered at the ER for hyperkalemia. Medical History as above Surgical History : Eye lesion surgery Family History : Hypertension Personal/Social history : 2 cigarettes a day, occasional EtOH intake, garage work Allergies Allergy/AdvReac Type Severity Reaction Status Date / Time No Known Allergies Allergy Verified 07/17/21 18:58 Home Medications Medication Instructions Recorded Confirmed Type amlodipine 5 mg tablet (Norvasc) 10 mg PO QAM 07/27/20 07/17/21 History cholecalciferol (vitamin D3) 50 50 mcg PO QAM 07/27/20 07/17/21 History mcg (2,000 unit) capsule (Vitamin D3) lisinopril 5 mg tablet 5 mg PO QAM 07/27/20 07/17/21 History acetaminophen 500 mg tablet 1,000 mg PO DIRECTED PRN 07/05/21 07/17/21 History (Tylenol Extra Strength) levofloxacin 500 mg tablet 500 mg PO QAM 07/17/21 07/17/21 History Past Med/Surg History Medical History Anemia Chronic kidney disease stage 4 since at least 2018 > follows with Mai Myles HTN (hypertension) Nephrolithiasis Tobacco abuse Surgical History [place] teeth extracted Family History Father Kidney stone Social History Smoking Status: Light tobacco smoker Tobacco Type: Cigarettes Cigarettes Per Day: 6 cigs per day; Second Hand Exposure: No; Do You Dip or Chew Tobacco: No; Tobacco Cessation Education Requested by Patient: Yes Hx Alcohol Use: Yes Alcohol type: beer, wine and hard liquor Hx Substance Use: No Preferred Language: Vietnamese Communication Ability: Effective Casino Accountant Required: No Beliefs That Will Affect Care: None Current Living Situation: Spouse Other Information That Helps Us Care for You: No Feels Safe at Home: Yes Assistive Devices: None Review of Systems Review of Systems: As per HPI, all other systems reviewed and negative Physical Exam Physical Exam: GENERAL: Comfortable, no respiratory distress SKIN: Pallor, warm HEENT: pale palpebral conjunctivae, no ptosis, dry buccal mucosa NECK : Supple, no tenderness CHEST : CTA, no tenderness HEART : RRR, no obvious murmurs ABDOMEN: Some distention, nontender EXTREMITIES : No LE swelling/tenderness, no other conspicuous deformities noted NEUROLOGIC : Coherent, no facial asymmetry, no other gross focality Results & Data Results & Data ([facility]) Vital Signs (Past 12 Hours) Vital Signs Temp Pulse Resp BP Pulse Ox 07/17/21 23:00 80 16 137/80 99 07/17/21 22:00 128 H 22 125/82 99 07/17/21 21:30 121 H 18 127/80 99 07/17/21 21:00 129 H 19 125/79 99 05/18/22 20:30 134 H 20 134/87 100 07/17/21 20:00 133 H 26 H 100 07/17/21 19:30 100 07/17/21 19:00 125 H 19 116/75 100 07/17/21 18:30 138 H 21 113/70 92 07/17/21 15:43 36.6 C 90 18 113/69 99 Laboratory Results Laboratory Results WBC 6.90 K/uL (4.8-10.8) 07/17/21 16:20 RBC 4.17 M/uL (4.7-6.1) L 07/17/21 16:20 Hgb 12.4 g/dL (14.0-18.0) L 07/17/21 16:20 Hct 36.7 % (42-52) L 07/17/21 16:20 MCV 88.0 fL (80-100) 07/17/21 16:20 MCH 29.7 pg (25-34) 07/17/21 16:20 MCHC 33.8 g/dL (32-36) 07/17/21 16:20 RDW Std Deviation 47.3 fL (36.4-46.3) H 07/17/21 16:20 RDW Coeff of William 14.7 % (11.5-14.5) H 07/17/21 16:20 Plt Count 265 K/uL (130-400) 07/17/21 16:20 MPV 9.4 fL (7.4-10.4) 07/17/21 16:20 Immature Gran % (Auto) 0.1 % 07/17/21 16:20 Neut % (Auto) 45.5 % 07/17/21 16:20 Lymph % (Auto) 32.8 % 07/17/21 16:20 Citrus % (Auto) 9.9 % 07/17/21 16:20 Eos % (Auto) 11.4 % 07/17/21 16:20 Baso % (Auto) 0.3 % 07/17/21 16:20 Neut # (Auto) 3.14 K/uL (1.4-6.5) 07/17/21 16:20 Lymph # (Auto) 2.26 K/uL (1.2-3.4) 07/17/21 16:20 Citrus # (Auto) 0.68 K/uL (0.11-0.59) H 07/17/21 16:20 Eos # (Auto) 0.79 K/uL (0-0.5) H 07/17/21 16:20 Baso # (Auto) 0.02 K/uL (0-0.2) 07/17/21 16:20 Immature Gran # (Auto) 0.01 K/uL (0.00-0.02) 07/17/21 16:20 VBG pH 7.22 (7.36-7.41) L 07/17/21 06:23 VBG pCO2 47 mmHg (38-50) 07/17/21 06:23 VBG pO2 23 mmHg 07/17/21 06:23 VBG HCO3 19 mmol/L 07/17/21 06:23 VBG O2 Saturation < 60.0 % 07/17/21 06:23 VBG Base Excess -8.8 mEq/L 07/17/21 06:23 Barometric Pressure 728.5 mm/Hg 07/17/21 06:23 Sodium 139 mmol/L (136-145) 07/17/21 21:31 Potassium 6.3 mmol/L (3.5-5.1) H* 07/17/21 21:31 Chloride 118 mmol/L (98-107) H 07/17/21 21:31 Carbon Dioxide 15 mmol/L (21-32) L 07/17/21 21:31 Anion Gap 6 (3-11) 07/17/21 21:31 BUN 53 mg/dl (6-23) H 07/17/21 21:31 Creatinine 4.30 mg/dl (0.6-1.4) H 07/17/21 21:31 Est Cr Clr Drug Dosing 22.7 ml/min 07/17/21 21:31 Est GFR ( Amer) 20.0 ml/min 07/17/21 21:31 Est GFR (Non-Af Amer) 17.2 ml/min 07/17/21 21:31 BUN/Creatinine Ratio 12.3 (10-20) 07/17/21 21:31 Glucose 91 mg/dl (70-99(Fasting)) 07/17/21 21:31 POC Glucose 88 mg/dl (70-99) 07/17/21 22:35 Calcium 8.5 mg/dl (8.5-10.1) 07/17/21 21:31 Magnesium 2.0 mg/dl (1.7-2.4) 07/17/21 21:31 Total Bilirubin 0.4 mg/dl (0.2-1.0) 07/17/21 16:20 AST 19 U/L (13-39) 07/17/21 16:20 ALT 17 U/L (7-52) 07/17/21 16:20 Alkaline Phosphatase 51 U/L (34-104) 07/17/21 16:20 Total Protein 7.0 gm/dl (6.0-8.3) 07/17/21 16:20 Albumin 4.4 gm/dl (3.4-5.0) 07/17/21 16:20 Globulin 2.6 gm/dl (2.5-4.0) 07/17/21 16:20 Albumin/Globulin Ratio 1.7 (0.9-2) 07/17/21 16:20 Urine Color Yellow 07/17/21 19:30 Urine Appearance Clear (Clear) 07/17/21 19:30 Urine pH 5.0 (4.5-7.5) 07/17/21 19:30 Ur Specific [place] 1.014 (1.000-1.030) 07/17/21 19:30 Urine Protein Negative (Negative) 07/17/21 19:30 Urine Glucose (UA) Negative (Negative) 07/17/21 19:30 Urine Ketones Negative (Negative) 07/17/21 19:30 Urine Blood Negative (Negative) 07/17/21 19:30 Urine Nitrite Negative (Negative) 07/17/21 19:30 Urine Bilirubin Negative (Negative) 07/17/21 19:30 Urine Urobilinogen Negative (Negative) 07/17/21 19:30 Ur Leukocyte Esterase Negative (Negative) 07/17/21 19:30 SARS-CoV-2, RNA, NAAT NEGATIVE (NEGATIVE) 07/17/21 22:50 Diagnostic Findings Chest x-ray as per my interpretation no congestion EKG as per my interpretation : Rate 55, sinus bradycardia, normal axis, peaked T waves
[2021-07-18 00:46] LABS: BUN Creatinine Ratio 12.3 (10-20); Creatinine Clr Calc Pharmacy 23.5 ml/min; Est GFR (African American) 20.8 ml/min; Est GFR (Non-African American) 17.9 ml/min; Potassium 4.9 mmol/L (3.5-5.1)
[2021-07-18] MEDS ORDERED: PROMETHAZINE HCL 6.25 MG in SODIUM CHLORIDE 0.9% 50 ML IV PRN (02:27)
[2021-07-18] MEDS ORDERED: traMADol HCL 50 MG TABLET PO PRN (02:27)
[2021-07-18] MEDS ORDERED: ACETAMINOPHEN 325 MG TAB PO PRN (02:27)
[2021-07-18] MEDS ORDERED: levoFLOXacin 500 MG TAB PO ONE (02:45)
[2021-07-18] MEDS ORDERED: SODIUM CHLORIDE 0.9% 1000ML 1,000 ML IV SCH (05:00)
[2021-07-18] MEDS: HEPARIN SOD 5,000 UNIT/0.5 ML VIAL SQ SCH ×2 (05:53→16:03)
--- NOTE | 2021-07-18 07:39 | XRay Report ---
SINGLE VIEW CHEST CLINICAL HISTORY: Renal failure. FINDINGS: An AP, portable, upright chest radiograph is obtained. No prior studies are available for c omparison at the time of dictation. The examination is degraded by portable technique and apical lord otic positioning. The cardiomediastinal silhouette is unremarkable. The lungs and pleural spaces are clear. No pneumothorax is seen. The bony thorax is grossly intact. IMPRESSION: No active disease in the chest. ACT 112: Negative or not required by law. Electronically signed by: Nj Olivo M.D. 07/18/2021 7:37 AM
[2021-07-18 08:25] LABS: Basophils # (auto) 0.03 K/uL (0-0.2); Basophils % (auto) 0.5 %; Eosinophils # (auto) 0.61 K/uL (0-0.5); Eosinophils % (auto) 9.5 %; Hematocrit (blood only) 32.5 % (42-52); Hemoglobin 10.9 g/dL (14.0-18.0); Immature Granulocytes # (auto) 0.01 K/uL (0.00-0.02); Immature Granulocytes % (auto) 0.2 %; Lymphocytes # (auto) 1.85 K/uL (1.2-3.4); Mean Corpuscular Hemoglobin 29.3 pg (25-34); Mean Corpuscular Hgb Conc 33.5 g/dL (32-36); Mean Corpuscular Volume 87.4 fL (80-100); Mean Platelet Volume 9.4 fL (7.4-10.4); Monocytes # (auto) 0.45 K/uL (0.11-0.59); Neutrophils # (auto) 3.44 K/uL (1.4-6.5); Neutrophils % (auto) 53.8 %; Platelet Count 235 K/uL (130-400); RDW Coefficient of Variation 14.6 % (11.5-14.5); RDW Standard Deviation 46.6 fL (36.4-46.3); Red Blood Count 3.72 M/uL (4.7-6.1); White Blood Count 6.39 K/uL (4.8-10.8)
[2021-07-18] MEDS ORDERED: [UNRECOGNIZED DRUG - REMARK] PRN (09:00)
[2021-07-18] MEDS ORDERED: amLODIPine BESYLATE 5 MG TAB PO SCH (09:00)
[2021-07-18 09:21] LABS: Calcium 8.7 mg/dl (8.5-10.1); Creatinine Clr Calc Pharmacy 25.7 ml/min; Est GFR (Non-African American) 19.8 ml/min; Potassium 6.4 mmol/L (3.5-5.1)
[2021-07-18] MEDS ORDERED: STAT IV STA (09:34)
[2021-07-18] MEDS ORDERED: DEXTROSE 50% 50 ML SYRINGE IV ONE (09:34)
[2021-07-18] MEDS ORDERED: FUROSEMIDE 40 MG/4 ML VIAL IV ONE (09:44)
[2021-07-18] MEDS ORDERED: PATIROMER CALCIUM SORBITEX 8.4 GM PACK PO STA (09:47)
[2021-07-18] MEDS ORDERED: CALCIUM GLUCONATE 10% 1,000 MG in DEXTROSE 5% 50 ML IV ONE (10:00)
[2021-07-18] MEDS ORDERED: INSULIN HUMAN REGULAR PER UNIT 10 UNITS in SYRINGE 9.9 ML IV ONE (10:00)
[2021-07-18] MEDS ORDERED: SODIUM BICARBONATE 8.4% 150 MEQ in WATER, STERILE 1,000 ML IV SCH (10:00)
--- NOTE | 2021-07-18 11:10 | Consultation Report ---
NEPHROLOGY CONSULTATION NOTE DATE OF CONSULT: 07/18/2021. REASON FOR CONSULTATION: Hyperkalemia in a patient with known CKD. HISTORY OF PRESENT ILLNESS: The patient is a 31-year-old male with baseline chronic kidney disease stage IV to stage V with a baseline creatinine around 4, as well as history of hypertension, chronic diarrhea, history of nephrolithiasis who recently had epididymitis requiring Levaquin treatment. He was in the hospital a few weeks ago and had hyperkalemia and acute renal failure on chronic kidney disease with epididymitis. At the time of admission, the patient's creatinine was in the 4, he signed out against medical advice. He was seen by Dr. Kathy Diaz few days prior to hospitalization, this time serum creatinine came back at 4.5 and potassium at 6.5 as an outpatient after which the patient was instructed to come to the emergency department for further management. Since being admitted, the patient has received normal saline and ringer lactate IV insulin, dextrose, calcium and Veltassa. Potassium came down, but has rebounded again and this morning, it is again 6.4, bicarbonate slightly low at 16. Creatinine is actually better at 3.83. Creatinine was 4.77 on admission yesterday. The patient is very angry and does not really follow any kind of diet as he says he is overwhelmed by many advice for his diet. He was completely asymptomatic prior to hospitalization. Chest x-ray done yesterday was also unremarkable. He makes a normal amount of urine. PAST MEDICAL AND SURGICAL HISTORY: Includes CKD stage IV to stage V with a baseline creatinine around 4, chronic anemia from CKD, eye lesion surgery. FAMILY HISTORY: Negative for renal disease or dialysis. Family history is positive for hypertension. ALLERGIES: None. HOME MEDICATIONS: Includes amlodipine, cholecalciferol, lisinopril 5, levofloxacin recently done for epididymitis. SOCIAL HISTORY: Current smoker. Drinks alcohol on a fairly regular basis. He is and lives with spouse. REVIEW OF SYSTEMS: He claims he is completely asymptomatic and has absolutely no symptoms of any type. PHYSICAL EXAMINATION: GENERAL: Young white male who is not in any respiratory distress. He is awake, alert, oriented x3, normal speech. However, he is very angry and irritable for being admitted in the hospital when he has no symptoms. HEENT: Mucous membrane is moist. NECK: Supple. No JVD. CHEST: Bilaterally clear to auscultation. CARDIOVASCULAR: S1 and S2, regular. ABDOMEN: Soft, nontender. EXTREMITIES: Show no edema. NEUROLOGIC: No focal deficit. VITAL SIGNS: Include blood pressure 107/59, pulse rate of 70, temperature 36.6, 98% on room air. LABORATORY TEST: Reviewed. Chest x-ray unremarkable. Blood work from this morning shows potassium 6.4. Sodium 138, bicarbonate 16, BUN 46, creatinine 3.83, it was 4.77 yesterday at the time of admission. His creatinine has been close to 4 for some time now. Urine sediment done yesterday shows negative blood, negative protein and was otherwise bland. ASSESSMENT AND PLAN: The patient is a 31-year-old male with known chronic kidney disease stage IV to stage V with a baseline creatinine around 4. He was admitted because of hyperkalemia. Hyperkalemia. The patient has established chronic kidney disease stage IV to stage V and he is having significant problem with potassium lately. This is in fact his second trip to the hospital because of high potassium. At this point, I do not see the need to continue the lisinopril and should be stopped at the time of discharge. He also needs some help with some renal loss of potassium and I would put him on Lasix 80 mg p.o. daily for outpatient. It is very unlikely that the patient is going to follow any dietary restriction. I had a long discussion regarding that and his excuse is he is too overwhelmed by too many dietary restrictions. To simply the matter we should focus just on the low potassium diet at this point as that seems to be the predominant problem right now. He does eat a lot of food, which are very, very high in potassium. His current creatinine is within his baseline and no further workup is needed for the chronic kidney disease. As for the acute management of hyperkalemia, I would like to change the fluid from normal saline to bicarbonate drip and run it wide open. This is mainly to bring the potassium down to normal level, so that we can discharge him later today. Also give 80 mg IV Lasix x1 now. Other medical management for hyperkalemia has already been done. I am not sure if patient has the ability to be on Veltassa, which can be costly and very restrictive by insurance. After the Lasix IV and a bicarbonate drip, I expect the potassium to come down to normal range later this afternoon after which he can be discharged. The patient is ready to be leaving the hospital against medical advice at this point Anyway. Job ID: [id number] [facility]
[2021-07-18 11:39] LABS: iSTAT Blood Urea Nitrogen 51 mg/dl (7-18); iSTAT Carbon Dioxide 19 mmol/L (24-31); iSTAT Chloride 116 mmol/L (101-112); iSTAT Creatinine 4.6 mg/dl (0.6-1.3); iSTAT Glucose 83 mg/dl (70-99); iSTAT Hematocrit 30 % (42-52); iSTAT Hemoglobin 10.2 g/dl (14.0-18.0); iSTAT Potassium 6.1 mmol/L (3.3-5.0); iSTAT Sodium 143 mmol/L (135-144)
--- NOTE | 2021-07-18 12:24 | Electrocardiogram Report ---
Test Reason : Blood Pressure : / mmHG Vent. Rate : 058 BPM Atrial Rate : 058 BPM P-R Int : 132 ms QRS Dur : 086 ms QT Int : 374 ms P-R-T Axes : 051 086 079 degrees QTc Int : 367 ms Sinus bradycardia with sinus arrhythmia Otherwise normal ECG When compared with ECG of 05-JUL-2021 16:12, No significant change was found Confirmed by Jairo Willis ([id number]) on 07/18/2021 12:23:37 PM Referred By: Kathy Diaz Confirmed By:Philippe Willis
[2021-07-18 15:30] LABS: BUN Creatinine Ratio 11.1 (10-20); Calcium 9.5 mg/dl (8.5-10.1); Creatinine Clr Calc Pharmacy 25.3 ml/min; Est GFR (African American) 22.6 ml/min; Est GFR (Non-African American) 19.5 ml/min; Potassium 5.2 mmol/L (3.5-5.1)
--- NOTE | 2021-07-18 16:23 | Discharge Summary ---
Date of Service July 18, 2021 Admission HPI Per Admitting Provider History obtained from patient and records. Medical history significant for hypertension, CRI (baseline creatinine 4), chronic anemia (baseline hemoglobin 12), chronic diarrhea, recent bout of epididymitis ongoing Levaquin Rx, ongoing tobacco abuse. Last confinement 2 weeks ago for hyperkalemia, ARF on CKD, epididymitis. Serum creatinine 4.34. Patient received IM ceftriaxone 1 dose and Levaquin at the ER for epididymitis. Patient signed out AGAINST MEDICAL ADVICE. Patient seen at [facility] [place] [facility] office 3 days ago. Outpatient labs ordered and drawn last July 16. Serum creatinine noted to be 4.5, serum potassium 6.5. Patient denies chest pain, SOB, fluid retention, abdominal pain. Usual diarrhea symptoms. Patient directed to ER by outpatient provider. IVF, IV insulin, Veltassa, calcium gluconate administered at the ER for hyperkalemia. 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 NAD, on RA. HEENT: No pallor, no icterus. Pupils equal, round and reactive to light. Oral mucosa moist. NECK: No JVD, no neck masses. HEART: S1 and S2 heard. Regular rate and rhythm. No murmur, no gallop. RESPIRATORY SYSTEM: Normal AP diameter. No accessory muscle use. No wheezing, no crackles. ABDOMEN: Soft, bowel sounds present, nontender, no distention. CENTRAL NERVOUS SYSTEM: No facial droop. Speech is clear. Obeys simple commands. Moves extremities. EXTREMITIES: No edema, no erythema seen. Discharge Data Allergies Allergy/AdvReac Type Severity Reaction Status Date / Time No Known Allergies Allergy Verified 07/17/21 18:58 Consultations 07/17/21 22:21 ED Decision to Admit Stat 07/18/21 02:27 Consult Nephrology Routine Hospital Course (1) Hyperkalemia: 31-year-old gentleman with baseline CKD stage IV to V with baseline creatinine around 4, chronic anemia, recent diagnosis of epididymitis on the Levaquin treatment, ongoing tobacco abuse who was recently here for hyperkalemia 2 weeks ago was sent this time from outpatient office due to potassium level of 6.5. Admitting potassium of 5.8 which went up to 6.7. Patient is status post mu ltiple doses of potassium cocktail. Patient received bicarb drip and IV Lasix. Patient is noncompliant with dietary restriction and low potassium diet. Counselled. Dietitian consult for low potassium diet education. Patient was also insisting on going today, of note patient has recently left AMA in his last confinement. Upon discussion with nephrology, patient being discharged with Lasix 80 mg p.o. daily, lisinopril stopped and patient to get his lab (BMP) done on Thursday and have the results forwarded to his nephrology. Patient to follow-up with his PCP and nephrology within a week time. Continue other medications as prescribed. Lisinopril discontinued upon discharge. Continue Levaquin for epididymitis. Patient being discharged to home with following instruction at the point of discharge: Follow-up with your primary care physician within a week time. Follow-up with your nephrology within a week time. Get your blood work BMP done on Thursday. Have the results forwarded to your nephrology doctor. Your lisinopril will be held upon discharge, you are being started on Lasix 80 mg daily. Take 9 more days of levaquin to complete the course for epididymitis. Follow low potassium diet as per your discussion with dietitian while inpatient. Take your medications as prescribed. Total Time Total Time Spent Total Time Spent (In Minutes): 40 Discharge Plan Discharge Items Patient Disposition: Home - Self-Care Reason For Visit: HYPERKALEMIA Discharge Diagnosis: Established CKD stage IV to stage V Hyperkalemia Activity: Resume your previous activity Non-emergency contact: Primary Care Provider Call non-emergency contact if: you have any medication questions, your symptoms worsen and your temperature is above 101 Follow-up/Referrals: London Minor MD [Primary Care Provider] - Diet: Heart Healthy, Low Potassium (2gm) and Lactose Intolerant Addtl Attending Provider Instructions: Follow-up with your primary care physician within a week time. Follow-up with your nephrology within a week time. Get your blood work BMP done on Thursday. Have the results forwarded to your nephrology doctor. Your lisinopril will be held upon discharge, you are being started on Lasix 80 mg daily. Take 9 more days of levaquin to complete the course for epididymitis. Follow low potassium diet as per your discussion with dietitian while inpatient. Take your medications as prescribed. Pending Studies at Discharge: No Stand-Alone Forms: My [facility] [employer]ate, Smoking Cessation Medications and DC Order Prescriptions: New levofloxacin 250 mg Tablet 250 mg PO DAILY@1100 9 Days Qty: 9 RF: 0 furosemide 80 mg tablet 80 mg PO DAILY Qty: 30 RF: 0 Continued cholecalciferol (vitamin D3) [Vitamin D3] 50 mcg (2,000 unit) Capsule 50 mcg PO QAM RF: 0 amlodipine [Norvasc] 5 mg tablet 10 mg PO QAM RF: 0 acetaminophen [Tylenol Extra Strength] 500 mg Tablet 1,000 mg PO DIRECTED PRN (Reason: Pain) RF: 0 Discontinued lisinopril 5 mg Tablet 5 mg PO QAM RF: 0 levofloxacin 500 mg tablet 500 mg PO QAM RF: 0 Discharge Orders: Discharge Order (Routine); Ordered 07/18/21 Ordered By: Andrzej Hoang Admission Data Admit Date/Time: 07/18/21 00:42 Attending Provider: Andrzej Hoang Admit Provider: Azam Gracia Primary Care Provider: London Minor Other Providers: Azam Gracia ; Kathy Diaz ; Bonifacio Bean ; Jackie Montague ; Felicitas Wetzel ; Nacho Lund
[2021-07-19] MEDS ORDERED: levoFLOXacin 250 MG TABLET PO SCH (11:00)
== END 2021-07-18 18:41 | disposition home or self-care (01) | DRG 683 ==
LOC: ED 15:31 → 2W 07-18 00:42

== ENCOUNTER 2023-04-04 11:07 | Inpatient (IN) ==
--- OUTSIDE RECORDS SUMMARY | 2023-04-04 11:12 | External Medical Summary ---
Author Name Unknown Address Unknown Organization : Laboratory Report Ordering Provider Test Date Status ALEX PADILLA 03/04/2023 07:32:55 Final Observation Date Value Abnormality Reference (Units ) Status Source 03/04/2023 07:32:55 Whole Blood Final BK virus DNA 03/04/2023 07:32:55 Not Detected (copies/mL) Final BK virus DNA [Log #/volume] (viral load) in Specimen by GLADYS with probe detection 03/04/2023 07:32:55 Not Detected (Log cps/mL) Final Reference Range: Not Detecte d
This test was developed and its analytical performance
characteristics have been determined by [employer] [place], [place]. It has
not been cleared or approved by the U.S. Food and Drug
Administration. This assay has been validated pursuant
to the CLIA regulations and is used for clinical
purposes.

Test Performed at:
[facility]
[id number]
[place] [address]
Félix Longoria M.D., Ph.D.,Director of Laboratories Performing Location
--- OUTSIDE RECORDS SUMMARY | 2023-04-04 11:12 | External Medical Summary ---
Author Name Unknown Address Unknown Organization K01:[facility] [place] [address] [facility] [id number] Laboratory Report Ordering Provider Test Date Status ALEX PADILLA 03/04/2023 07:32:55 Final Observation Date Value Abnormality Reference (Units ) Status SYNC LEUKOCYTES IN BLOOD BY AUTOMATED COUNT 03/04/2023 07:32:55 4.87 4.00-10.80 (K/uL) Final Segs 03/04/2023 07:32:55 59.8 40.0-75.0 (%) Final Lymphs % 03/04/2023 07:32:55 20.1 18.0-42.0 (%) Final Monos 03/04/2023 07:32:55 12.1 Above high normal 1.0-11.0 (%) Final Eosinophils 03/04/2023 07:32:55 7.2 Above high normal 0.0-6.0 (%) Final Basos 03/04/2023 07:32:55 0.6 0.0-2.0 (%) Final Immature Granulocyte, Percent 03/04/2023 07:32:55 0.2 0.0-2.0 (%) Final Absolute Segs 03/04/2023 07:32:55 2.91 1.80-7.70 (K/uL) Final Lymphs, absolute 03/04/2023 07:32:55 0.98 Below low normal 1.00-4.80 (K/ul) Final Monos, Abs 03/04/2023 07:32:55 0.59 0.00-1.10 (K/uL) Final Eos, Abs 03/04/2023 07:32:55 0.35 0.00-0.70 (K/uL) Final Basos, Abs 03/04/2023 07:32:55 0.03 0.00-0.20 (K/uL) Final Immature Granulocytes, Number 03/04/2023 07:32:55 0.01 0.00-0.20 (K/uL) Final Performing Location [facility] [place] [address] [facility] [id number]
--- OUTSIDE RECORDS SUMMARY | 2023-04-04 11:12 | External Medical Summary | Summary of Care ---
Author Name Unknown Organization [facility] Address [address] [place] [address] Phone [phone] Care Team Providers Care Svp Operations Name Role Phone Unavailable Primary Care Provider Unavailabl e Encounter Details Date Type Department Care Team (Latest Contact Info) Description 02/20[facility]2023 [facility] [address] [place] [address] Jimenez Roberson, SILVINA [address] [place] [address] Immunosuppressive management encounter following kidney transplant*; Kidney replaced by transplant Allergies Active Allergy Reactions Criticality Noted Date Comments Sulfamethoxazole-Trimethoprim Rash 2022 documented as of this encounter (statuses as of 02/20/2023) Medications Medication Sig Dispensed Refills Start Date End Date Status Betamethasone Dipropionate 0.05 % External Cream (Diprosone)Indicati ons:Rash and nonspecific skin eruption Apply to rash on legs twice daily for two weeks and then on weekends only 45 g 0 03/12/2022 Active valGANciclovir HCl 450 MG Oral Tablet (Valcyte)Indication s:Kidney replaced by transplant,Need for prophylactic immunotherapy Take 1 Tablet by mouth in the morning. 30 Tablet 5 03/24/2022 Active Additional Information Patient not taking.Reported on 10/14/2022 amLODIPine Besylate 10 MG Oral Tablet (Norvasc) Take 1 Tablet by mouth in the morning. 90 Tablet 3 04/22/2022 Active Acetaminophen 325 MG Oral Tablet (Tylenol) TAKE 3 TABLETS BY MOUTH EVERY 6 HOURS NEEDED FOR MODERATE PAIN. 30 Tablet 0 03/06/2022 Active Clopidogrel Bisulfate 75 MG Oral Tablet (Plavix)Indications :Kidney replaced by transplant Take 1 Tablet by mouth in the morning. 90 Tablet 3 07/14/2022 Active Dapsone 100 MG Oral TabletIndications:N eed for prophylactic measure Take 1 Tablet by mouth in the morning. 30 Tablet 4 08/25/2022 Active Tacrolimus 1 MG Oral Capsule (Prograf)Indication s:Need for prophylactic immunotherapy,Kidne y replaced by transplant Take 4 Capsules by mouth every morning AND 3 Capsules every evening. 240 Capsule 5 09/04/2022 Active Omeprazole 20 MG Oral Capsule Delayed Release (PriLOSEC)Indicatio ns:Kidney replaced by transplant,Need for prophylactic immunotherapy Take 1 Capsule by mouth in the morning. 30 Capsule 5 09/22/2022 Active Aspirin 81 MG Oral Tablet Delayed ReleaseIndications: Kidney replaced by transplant,Need for prophylactic immunotherapy Take 1 Tablet by mouth in the morning. 30 Tablet 5 09/22/2022 Active Azithromycin 250 MG Oral Tablet (Zithromax) Take 1 tablet by mouth each morning for 5 days 5 Tablet 0 09/26/2022 Active Additional Information Patient not taking.Reported on 10/14/2022 Mycophenolate Mofetil 250 MG Oral Capsule (Cellcept)Indicatio ns:Kidney replaced by transplant,Need for prophylactic immunotherapy Take 2 Capsules by mouth in the morning and 2 Capsules before bedtime. 120 Capsule 5 11/17/2022 Active documented as of this encounter (statuses as of 02/20/2023) Active Problems Problem Noted Date Diagnosed Date DADA (acute kidney injury) 09/26/2022 Renal infarct of kidney transplant 09/26/2022 Stage 3a chronic kidney disease 09/26/2022 Normocytic anemia 09/26/2022 Pneumonia of right middle lobe due to infectious organism 09/26/2022 Acute bronchitis due to Rhinovirus 09/26/2022 Kidney replaced by transplant 03/03/2022 Immunosuppression 03/03/2022 Liver lesion 06/14/2020 Renal atrophy, right 06/14/2020 HTN, goal below 130/80 11/26/2017 CKD (chronic kidney disease) stage 4, GFR 15-29 ml/min 07/30/2017 Varicella without complication 08/09/2010 Migraine variant 09/07/2009 documented as of this encounter (statuses as of 02/20/2023) Resolved Problems Problem Noted Date Diagnosed Date Resolved Date Closed fracture of navicular bone of wrist 05/05/2007 03/26/2017 documented as of this encounter (statuses as of 02/20/2023) Immunizations Name Administration Dates Next Due COVID-19 mRNA, LNP-s, No Pre serve, 2-Dose Series (Pfizer) 10/29/2021 COVID-19, LNP-s, No Preserve , Vyon-sucrose, Ages 12+ (Pfizer) 10/08/2021 Hepatitis B, 20+ yrs 12/19/1994,06/19/1994,05/12 Meningococcal Conjugate Vacc ine (Menactra/Menveo) 01/07/2007 Meningococcal MCV4P Conjugat e Vaccine (Menactra) 01/07/2007 TD, Preservative Free 07/26/2014 TDAP (age 11 and older)(Adacel) 01/12/2008 documented as of this encounter Social History Tobacco Use Types Packs/Day Years Used Date Smoking Tobacco: Former Cigarettes 1 6 Q uit: 07/15/2021 Smokeless Tobacco: Former Chew, Snuff Alcohol Use Standard Drinks/Week Comments Not Currently 0 (1 standard drink = 0.6 oz pur e alcohol) social PHQ-2 Answer Date Recorded PHQ Adult Total Score 0 06/14/2020 Hunger Vital Sign Answer Date Recorded Within the past 12 months, y ou worried that your food would run out before you got the money to buy more. Never true 06/15/19 21 Within the past 12 months, t he food you bought just didn't last and you didn't have money to get more. Never true 06/14/2020 Education Answer Date Recorded What is the highest level of school you have completed or the highest degree you have received? High school graduate 10/14/2021 Sex and Gender Information Value Date Recorded Sex Assigned at Not on file Gender Identity Not on file Sexual Orientation Not on file Job Start Date Occupation Industry Not on file Not on file Not on file documented as of this encounter Functional Status Functional Status Response Date of Assess ment Are you deaf or do you have serious difficulty h earing? No 03/03/2022 Are you blind or do you have serious difficulty seeing, even when wearing glasses? No 03/03/2022 Do you have serious difficul ty walking or climbing stairs? (5 years old or older) No 03/03/2022 Do you have difficulty dress ing or bathing? (5 years old or older) No 03/03/2022 Because of a physical, menta l, or emotional condition, do you have difficulty doing errands alone such as visiting a doctor s office or shopping? (15 years old or older) No 03/03/19 Cognitive Status Response Date of Assessm ent Because of a physical, menta l, or emotional condition, do you have serious difficulty concentrating, remembering, or making decisions? (5 years old or older) No 03/03/2022 documented as of this encounter Plan of Treatment Upcoming Encounters Date Type Department Care Team (Late st Contact Info) Description 03/11/2023 7:50 AM EST Pharmacy Hepatology, [place] [address] [place] [address] [place], Pharmacist Hepatology [facility] [place] [address] 06/17/2023 2:30 PM EDT Telemedicine Transplant Clinic, [place] [address] [place] [address] Jimenez Roberson, [facility] [address], [place] [id number] Scheduled Orders Name Type Priority Associated Diagnoses Orde r Schedule BK VIRUS DNA, QUANTITATIVE REAL-TIME PCR, BLOOD Lab STAT Immunosuppressive management encounter following kidney transplant Kidney replaced by transplant Expected: 02/20/2023, Expires: 02/21/2024 Health Maintenance Due Date Last Done Comments Pneumococcal Vaccine: Pediatrics (0 to 5 Years) and At-Risk Patients (6 to 64 Years) (1 - PCV) 05/18/1997 Depression Screening 06/14/2021 06/14/2020 COVID-19 Vaccine (3 - Pfizer risk series) 11/26/2021 10/29/2021, 10/08/2021 Influenza Vaccine (FLU shot) (#1) 2022 GFR 07/15/2023 01/14/2023, 11/30, 10/28/2022, Additional history exists Albumin/Creatinine Ratio 08/07/2023 023, 06/03/2022, 05/13/2022, Additional history exists DTaP,Tdap,and Td Vaccines (7 - Td or Tdap) 07/26/2024 07/26/2014, 01/12/2008, 10/14/2002, Additional history exists Hepatitis B Completed 12/19/1994, 12/01, 06/19/1994, Additional history exists MENINGOCOCCAL (MENACTRA/MENVEO) Aged Out 01/07/2007, 01/07/2007 No longer eligibl e based on patient's age to complete this topic Nephrology Referral Discontinued 03/10/2022 GARDASIL-HPV IMMUNIZATION SERIES Aged Out No longer eligible based on patient's age to complete this topic documented as of this encounter Goals Goal Patient Goal Type Associated Problems Recent Progress Patient-Stated? Author Keep Tacrolimus level between 8 and 10 Result Component On track( 023 12:02 PM EDT) No Jimenez Roberson, SILVINA documented as of this encounter Medical Devices Not on filedocumented as of this encounter Visit Diagnoses Diagnosis Immunosuppressive management encounter following kidney transplant- Primary Encounter for long-term (current) use of other medications Kidney replaced by transplant documented in this encounter Advance Directives Latest Code Status on File Code Status Date Activated Date Inactivated Comments Limited Code 09/26/2022 5:23 AM 09/26/2022 6:00 PM This order reflects the patients wishes and were consensually agreed upon. Question Answer Comments Discussion of Advance Directives occurred with: Patient Intubation? No Cardiac Compressions? Yes Code Status History Code Status Date Activated Date Inactivated Comments Full Code 03/03/2022 9:54 AM 03/06/2022 9:40 PM This or ant reflects the patients wishes and were consensually agreed upon. Question Answer Comments Discussion of Advance Directives occurred with: Patient Full Code 03/02/2022 10:16 PM 03/03/2022 9:54 AM Question Answer Comments Discussion of Advance Directives occurred with: Not Discussed due to patient's condition Healthcare Agents on File Name Relationship Healthcare Agent Relationshi p Communication Juliann Garner Spouse Health Care Repr esentative (appointed verbally by patient or by statute hierarchy)
--- OUTSIDE RECORDS SUMMARY | 2023-04-04 11:12 | External Medical Summary ---
Author Name Unknown Address Unknown Organization : Laboratory Report Ordering Provider Test Date Status ALEX PADILLA 03/04/2023 07:40:00 Final Observation Date Value Abnormality Reference (Units ) Status REFERENCE LAB SCANNED REPORT 03/04/2023 07:40:00 RESULT SCAN Final Performing Location
--- OUTSIDE RECORDS SUMMARY | 2023-04-04 11:12 | External Medical Summary | Summary of Care ---
Author Name Unknown Organization [facility] Address [address] [place] [address] Phone [phone] Care Team Providers Care Packager And Strapper Name Role Phone Unavailable Primary Care Provider Unavailabl e Encounter Details Date Type Department Care Team (Latest Contact Info) Description 02/04/2023 2:00 PM [facility] Telemedicine Transplant Clinic, [place] [address] [place] [address] Jimenez Roberson, SILVINA [address] [place] [address] Immunosuppressive management encounter following kidney transplant* Allergies Active Allergy Reactions Criticality Noted Date Comments Sulfamethoxazole-Trimethoprim Rash 2022 documented as of this encounter (statuses as of 03/05/2023) Medications Medication Sig Dispensed Refills Start Date [...] as of this encounter (statuses as of 03/05/2023) Active Problems Problem Noted Date Diagnosed Date [...] as of this encounter (statuses as of 03/05/2023) Resolved Problems Problem Noted Date Diagnosed Date Resolved Date Closed fracture of navicular bone of wrist 05/05/2007 03/26/2017 documented as of this encounter (statuses as of 03/05/2023) Immunizations Name Administration Dates Next Due COVID-19 mRNA, LNP-s, No Pre serve, 2-Dose Series (Vtap) 10/29/2021 COVID-19, LNP-s, No Preserve , Yvon-sucrose, Ages 12+ (Pfizer) 10/08/2021 DTP Vaccine 09/25/1995, 3,1991,09/13,1991 Haemophilius B (HIB), unspecified 06/13/1993,,11/20/1992 Hepatitis B Vaccine 12/19/1994,06/19/1994,1994 Hepatitis B, 20+ yrs 12/19/1994,06/19/1994,05/12 MMR - Measles/Mumps/Rubella Vaccine 10/07/1996,0 08/15/1992 Meningococcal Conjugate Vacc ine (Menactra/Menveo) 01/07/2007 Meningococcal MCV4P Conjugat e Vaccine (Menactra) 01/07/2007 OPV - Polio Virus Vaccine (Oral) 996,01/23/1992,1991,08/14 TD - Tetanus/Diptheria (ADULT) 10/14/2002 TD, Preservative Free 07/26/2014 TDAP (age 11 [...] No 03/03/2022 documented as of this encounter Progress Notes * Jimenez Roberson, DNP - 02/04/2023 2:06 PM EST Images from the original note were not included. 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 Donor Info: Transplant number: 1 Date of Transplant: 03/03/22 UNOS ID: [id number] Donor info: 44M. KDPI 41%. CIT 20 hr 42 min, WIT 38 min. 2 arteries of donor kidney with lower poleanastomosed to inferior epigastric artery Original Disease: HTN Dialysis Vintage: pre-dialysis CMV status: +/- EBV +/+ Induction therapy: Thymoglobulin Biopsy History: Reperfusion biopsy: No evidence of acute tubular injury. Negative for rejection. Glomerulosclerosis (). No significant interstitial fibrosis or tubular atrophy. Mild arterial fibrointimal thickening. For cause biopsy performed 09/01/2022 for elevated creatinine: No evidence of acute tubular injury. Negative for rejection. No glomerulosclerosis (0/25). No significant interstitial fibrosis or tubular atrophy. Hospital Course: Uncomplicated, discharged on POD#3 Jean events since transplant: July 2022: Unexplained acute kidney injury, biopsy was negative. August 2022: Hospitalized with rhino virus infection/superimposed bacterial, as well as potential UTI. Incidentally, who appears to be multiple small wedge- shaped infarcts were noted on allograft on imaging. His renal function returned to baseline at hospital discharge. Immunosuppression: Prograf - 4/3 Cellcept - 500 mg BID Immunosuppressant Regimen: Transplant Medications Immunosuppressive Agents Disp Start End Mycophenolate Mofetil 250 MG Oral Capsule (Cellcept) 120 Capsule 11/17/2022 -- Sig - Route: Take 2 Capsules by mouth in the morning and 2 Capsules before bedtime. - Oral Class: ePrescribing Notes to Pharmacy: DX code Z94.0, 03/03/2022 (Kidney) , PLEASE BILL MEDICARE PART B when applicable. Tacrolimus 1 MG Oral Capsule (Prograf) 240 Capsule 09/04/2022 -- Sig - Route: Take 4 Capsules by mouth every morning AND 3 Capsules every evening. - Oral Class: ePrescribing Notes to Pharmacy: DX code Z94.0, 03/03/2022 (Kidney), PLEASE BILL MEDICARE PART B. Immunosuppressant Targets: Active Patient Thresholds Lab Low High Effective Since Comment Tacrolimus Level 8 10 03/04/2022 Interval History: Denies major medical/psychosocial events since last visit. Denies any major complaints or concerns. . He denies headache, fever/chills, cough, sob/escobedo, CP, visual changes, abd symptoms (n/v/d/c), tremor. Physical Exam There were no vitals taken for this visit. Wt Readings from Last 3 Encounters: 09/29/22 64.5 kg (142 lb 3.2 oz) 09/25/22 63.5 kg (140 lb) 09/15/22 63.7 kg (140 lb 8 oz) General: well-appearing, NAD Pulmonary: Normal effort, resps unlabored Abdomen: soft, nontender, nondistended Lower extremities: No pedal edema, well-perfused Upper extremities: No tremors Neuro: Alert and oriented x3 Oropharynx: no signs of thrush Labs Lab Results Component Value Date WBC 4.07 01/14/2023 NEUTS 50.5 01/14/2023 HGB 11.3 (L) 01/14/2023 HCT 37.2 (L) 01/14/2023 PLT 253 01/14/2023 BUN 14 01/14/2023 CREAT 1.9 (H) 01/14/2023 EGFR 48 (L) 01/14/2023 NA 141 01/14/2023 POTASSIUM 5.1 01/14/2023 CA 9.3 01/14/2023 MG 2.1 08/18/2022 GLUCOSE 132 (H) 01/14/2023 AGP 10 01/14/2023 CO2 26 01/14/2023 Lab Results Component Value Date TACROLIMUS 8.7 01/14/2023 TACROLIMUS 8.0 12/17/2022 TACROLIMUS 7.9 10/28/2022 Lab Results Component Value Date/Time CMV DNA INTERPRETATION - [facility] CMV DNA not detected 01/14/2023 07:48 AM CYTOMEGALOVIRUS IGG ANTIBODY - [facility] Negative 03/02/2022 10:47 PM CYTOMEGALOVIRUS IGG ANTIBODY - [facility] Negative 10/14/2021 12:07 PM CYTOMEGALOVIRUS IGM ANTIBODY - [facility] Negative 03/02/2022 10:47 PM CMV DNA, QN PCR Not Detected 10/28/2022 07:32 AM CMV DNA, QN REAL TIME PCR Not Detected 10/28/2022 07:32 AM Lab Results Component Value Date BK VIRUS DNA, QN PCR Not Detected 01/14/2023 BK VIRUS DNA, QN PCR Not Detected 01/14/2023 BK VIRUS DNA, QN PCR Not Detected 12/17/2022 BK VIRUS DNA, QN PCR Not Detected 12/17/2022 Lab Results Component Value Date/Time ALBUMIN / CREATININE RATIO, URINE - [facility] <18 08/06/2022 07:36 AM ALBUMIN / CREATININE RATIO, URINE - [facility] <13 06/03/2022 07:43 AM ALBUMIN / CREATININE RATIO, URINE - [facility] <30 05/07/2022 07:48 AM Assessment and Plan Duke Garner is a 32 year old-old male who is 338 days s/p kidney transplant for ESRD secondary to , . His graft function is stable. Acute Concerns: None Renal/FEN: Renal allograft function is stable. Immunosuppression: Patient is not considered to be at increased immunologic risk. Tolerating IS regimen well. Symptoms/findings consistent with immunosuppressant toxicity: No. Target Immunosuppressant Levels: Active Patient Thresholds Lab Low High Effective Since Comment Tacrolimus Level 8 10 03/04/2022 Current Immunosuppressant Regimen: Transplant Medications Immunosuppressive Agents Disp Start End Mycophenolate Mofetil 250 MG Oral Capsule (Cellcept) 120 Capsule 11/17/2022 -- Sig - Route: Take 2 Capsules by mouth in the morning and 2 Capsules before bedtime. - Oral Class: ePrescribing Notes to Pharmacy: DX code Z94.0, 03/03/2022 (Kidney) , PLEASE BILL MEDICARE PART B when applicable. Tacrolimus 1 MG Oral Capsule (Prograf) 240 Capsule 09/04/2022 -- Sig - Route: Take 4 Capsules by mouth every morning AND 3 Capsules every evening. - Oral Class: ePrescribing Notes to Pharmacy: DX code Z94.0, 03/03/2022 (Kidney), PLEASE BILL MEDICARE PART B. Changes in regimen made today: None, continue current regimen Routine Immunosuppressant Lab Monitoring Frequency: Lab frequency: Monthly. : The patient does not have a chronic indwelling ureteral stent or urinary device. Infectious Disease: Recipient is high risk for CMV. Functional Status: 100 (Normal, no complaints, no evidence of disease.) Wrap-Up Disposition: Issues/concerns acute/urgent follow-up or additional workup: None Transplant Clinic Follow-up and routine lab schedule: Return in about 4 months (around 06/06/2023) for post-transplant follow-up, with me, labs monthly. Administrative: I spent a total of 35 minutes on the date of service in preparation, delivery, and documentation of the care provided to Duke Garner excluding any time spent in the performance of separately billed services. Telemedicine: Patient location: HOME. I was in a hospital or clinic location. After connecting through televideo,patient was verified with two unique identifiers. Patient (or authorized legal claims service representative) was then informed that this was a Telemedicine visit and being conducted confidentially over secure lines. Methods to assure confidentiality were taken. Patient acknowledged consent and understanding of pr ivacy and security of the Telemedicine visit. The patient agreed to participate. Jimenez Roberson, SILVINA, CORY Advanced Practitioner - Transplant and Liver Surgery documented in this encounter Miscellaneous Notes * Addendum Note - Kati Antonio TECH - 03/05/2023 7:33 AM ESTAddended by: KATI ANTONIO on: 03/05/2023 07:33 AM Modules accepted: Orders documented in this encounter Plan of Treatment Upcoming Encounters Date Type Department Care Team (Late st Contact Info) Description 03/11/2023 7:50 AM EST Pharmacy Hepatology, [address] [address] [place], Pharmacist Hepatology [address] [place] [id number] 06/17/2023 2:30 PM EDT Telemedicine Transplant Clinic, [address] [address] Jimenez Roberson DNP [address] [place] [address] Pending Results Name Type Priority Associated Diagnoses Date /Time TRAC KIDNEY DD-CFDNA, VIRACOR Lab Routine Immunosuppressive management encounter following kidney transplant 03/04/2023 7:40 AM EST TRUGRAF BLOOD GENE EXPRESSION TEST, VIRACOR Lab Routine Immunosuppressive management encounter following kidney transplant 03/04/2023 7:40 AM EST Scheduled Orders Name Type Priority Associated Diagnoses Orde r Schedule TRAC KIDNEY DD-CFDNA, VIRACOR Lab Routine Immunosuppressive management encounter following kidney transplant Expected: 03/19/2023, Expires: 03/05/2024 TRUGRAF BLOOD GENE EXPRESSION TEST, VIRACOR Lab Routine Immunosuppressive management encounter following kidney transplant Expected: 03/19/2023, Expires: 03/05/2024 Health Maintenance Due Date Last Done Comments Pneumococcal Vaccine: Pediatrics (0 to 5 Years) and At-Risk Patients (6 to 64 Years) (1 - PCV) 05/18/1997 Depression Screening 06/14/2021 06/14/2020 COVID-19 Vaccine (3 - Pfizer risk series) 11/26/2021 10/29/2021, 10/08/2021 Influenza Vaccine (FLU shot) (#1) 2022 Albumin/Creatinine Ratio 08/07/2023 023, 06/03/2022, 05/13/2022, Additional history exists GFR 09/02/2023 03/04/2023, 12/31, 12/17/2022, Additional history exists DTaP,Tdap,and Td Vaccines (7 [...] Component On track( 023 12:02 PM EDT) Jimenez Zapata DNP documented as of this encounter Medical Devices Not on filedocumented as of this encounter Visit Diagnoses Diagnosis Immunosuppressive management encounter following kidney transplant- Primary Encounter for long-term (current) use of other medications documented in this encounter Advance Directives Latest [...] Relationship Healthcare Agent Relationshi p Communication Juliann Pascual Spouse Health Care Repr esentative (appointed verbally by patient or by statute hierarchy)
--- OUTSIDE RECORDS SUMMARY | 2023-04-04 11:12 | External Medical Summary ---
Author Name Unknown Address Unknown Organization [id number]:[facility]ATORY [facility] - [address] [facility] [place] [address] Laboratory Report Ordering Provider Test Date Status ALEX PADILLA 03/04/2023 07:32:55 Final Test performed by [facility] on [facility]. Therapeutic ranges vary with type of transplant, time post-transplant, clinical protocols, and testing methodology. Results should be interpreted with clinical presentation and any signs rejection/toxicity. Observation Date Value Abnormality Reference (Units ) Status Tacrolimus (FK506) 03/04/2023 07:32:55 13.7 Above high normal 4.0-12.0 (ng/mL) Final Performing Location [facility] - [address] [place] [address]
--- OUTSIDE RECORDS SUMMARY | 2023-04-04 11:12 | External Medical Summary ---
Author Name Unknown Address Unknown Organization : Laboratory Report Ordering Provider Test Date Status ALEX PADILLA 03/04/2023 07:32:55 Final Observation Date Value Abnormality Reference (Units ) Status Source 03/04/2023 07:32:55 Whole Blood Final Cytomegalovirus DNA [Units/volume] (viral load) in Specimen by [facility] with probe detection 03/04/2023 07:32:55 Not Detected (IU/mL) Final Cytomegalovirus DNA [Log #/volume] (viral load) in Specimen by [facility] with probe detection 03/04/2023 07:32:55 Not Detected (log IU/mL) Final REFERENCE RANGE: NOT DETECTE D
This test was developed and its analytical performance
characteristics have been determined by [employer] [place], [place]. It has
not been cleared or approved by the U.S. Food and Drug
Administration. This assay has been validated pursuant
to the CLIA regulations and is used for clinical
purposes.
For additional information, please refer to
http://[email or web address]/faq/CMVandEBVPCR
(This link is being provided for informational/
educational purposes only.)

Test Performed at:
[facility]
[id number] [facility]
[place] [address]
Félix Longoria M.D., Ph.D.,Director of Laboratories Performing Location
--- OUTSIDE RECORDS SUMMARY | 2023-04-04 11:12 | External Medical Summary | Summary of Care ---
Author Name Unknown Organization [facility] Address [address] [place] [address] Phone [phone] Care Team Providers Care Senior Civil Engineer Name Role Phone Unavailable Primary Care Provider Unavailabl e Encounter Details Date Type Department Care Team (Late st Contact Info) Description 01/20/2023 Population Health External Data Unspecified Department Allergies Active Allergy Reactions Criticality Noted Date Comments Sulfamethoxazole-Trimethoprim Rash 2022 documented as of this encounter (statuses as of 01/20/2023) Medications Medication Sig Dispensed Refills Start Date [...] FOR MODERATE PAIN. 30 Tablet 0 03/06/2022 4 Active Clopidogrel Bisulfate 75 MG Oral Tablet [...] as of this encounter (statuses as of 01/20/2023) Active Problems Problem Noted Date Diagnosed Date [...] as of this encounter (statuses as of 01/20/2023) Resolved Problems Problem Noted Date Diagnosed Date Resolved Date Closed fracture of navicular bone of wrist 05/05/2007 03/26/2017 documented as of this encounter (statuses as of 01/20/2023) Immunizations Name Administration Dates Next Due COVID-19 mRNA, LNP-s, No Pre serve, 2-Dose Series ([employer]) 10/29/2021 COVID-19, LNP-s, No Preserve , Yvon-sucrose, Ages 12+ (Pfizer) 10/08/2021 Hepatitis B, 20+ [...] (15 years old or older) No 03/03/19 23 Cognitive Status Response Date of Assessm ent Because of a physical, menta l, or emotional condition, do you have serious difficulty concentrating, remembering, or making decisions? (5 years old or older) No 03/03/2022 documented as of this encounter Plan of Treatment Upcoming Encounters Date Type Department Care Team (Late st Contact Info) Description 02/04/2023 2:00 PM EST Telemedicine Transplant Clinic, [place] [address] [place] [address] Jimenez Roberson, DNP [address] [place] [address] 03/11/2023 7:50 AM EST Pharmacy Hepatology, [place] [address], [place] [phone] [place], Pharmacist Hepatology [address], [place] [phone] Health Maintenance Due Date Last Done Comments [...] track( 023 12:02 PM EDT) No Jimenez Roberson DNP documented as of this encounter Medical Devices Not on filedocumented as of this encounter Advance Directives Latest Code Status [...]
--- OUTSIDE RECORDS SUMMARY | 2023-04-04 11:12 | External Medical Summary ---
Author Name Unknown Address Unknown Organization [id number]:LABORATORY [facility] [place] - [address] [place] [address] Laboratory Report Ordering Provider Test Date Status ALEX PADILLA 03/04/2023 07:32:55 Final Observation Date Value Abnormality Reference (Units ) Status Hepatitis B virus DNA panel - Serum or Plasma 03/04/2023 07:32:55 HBV DNA not detected HBV DNA not detected Final Performing Location [facility]ATORY [facility] [place] - [address] [place] [address]
--- OUTSIDE RECORDS SUMMARY | 2023-04-04 11:12 | External Medical Summary | Summary of Care ---
Author Name Unknown Organization [facility] Address [address] [place] [address] Phone [phone] Care Team Providers Care Main Entree Cook And Cashier Name Role Phone Unavailable Primary Care Provider Unavailabl e Reason for Visit * Reason Comments Status Check Encounter Details Date Type Department Care Team (Late st Contact Info) Description 03/11/2023 7:50 AM EST Pharmacy Hepatology, [place] [address], [place] [phone] [place], Pharmacist Hepatology [address], [place] [phone] Hepatitis C virus infection cured after antiviral drug therapy* Allergies Active Allergy Reactions Criticality Noted Date Comments Sulfamethoxazole-Trimethoprim Rash 2022 documented as of this encounter (statuses as of 03/11/2023) Medications Medication Sig Dispensed Refills Start Date [...] the morning. 90 Tablet 3 04/22/2022 Active Clopidogrel Bisulfate 75 MG Oral Tablet (Plavix)Indications :Kidney replaced by transplant Take 1 Tablet by mouth in the morning. 90 Tablet 3 07/14/2022 Active Dapsone 100 MG Oral TabletIndications:N eed for prophylactic measure Take 1 Tablet by mouth in the morning. 30 Tablet 4 08/25/2022 Active Omeprazole 20 MG Oral Capsule Delayed [...] before bedtime. 120 Capsule 5 11/17/2022 Active Tacrolimus 1 MG Oral Capsule (Prograf)Indication s:Need for prophylactic immunotherapy,Kidne y replaced by transplant Take 3 Capsules by mouth every morning AND 2 Capsules every evening. 240 Capsule 5 03/05/2023 Active documented as of this encounter (statuses as of 03/11/2023) Active Problems Problem Noted Date Diagnosed Date [...] as of this encounter (statuses as of 03/11/2023) Resolved Problems Problem Noted Date Diagnosed Date Resolved Date Closed fracture of navicular bone of wrist 05/05/2007 03/26/2017 documented as of this encounter (statuses as of 03/11/2023) Immunizations Name Administration Dates Next Due COVID-19 mRNA, LNP-s, No Pre serve, 2-Dose Series (Pfizer) 10/29/2021 COVID-19, LNP-s, No Preserve , Yvon-sucrose, [...] as of this encounter Progress Notes * Lin Yip RPh - 03/11/2023 11:05 AM EST MTM Hepatitis C Treatment Follow-Up Patient Name: Duke Garner Post-SVR follow up History of Current Illness: Duke Garner is a 32 year old male 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 Patient has completed Hepatitis C treatment. This is a follow-up phone call to document labs 6 months after SVR12. Treatment Overview: Physician initiating treatment: Ruddy Georges MD Treatment Plan: Mavyret for 8 weeks. Started Treatment: 2022 Completed Therapy: 2022 SVR Confirmed: 08/18/2022 Were you able to contact the patient? n/a - lab ordered by the Transplant department Review of Recent Lab Results: Latest Reference Range & Units 03/06/22 07:05 *Pretreatment 04/07/22 09:42 *4 Week Labs 05/07/22 07:48 *EOT Labs 08/18/22 07:29 *SVR Labs 03/04/23 07:32 *Post SVR Lab HEPATITIS C RNA QUANTITATIVE 6,760 Negative Negative Negative Negative MTM Plan: The patient remains aviremic. No further follow-up necessary at this time. Lin Yip, PharmD, BCPS Clinical Pharmacist, Hepatology 03/11/2023 11:05 AM documented in this encounter Plan of Treatment Upcoming Encounters Date Type Department Care Team (Late st Contact Info) Description 06/17/2023 2:30 PM EDT [facility] [address] [place] [address] Jimenez Roberson DNP [address] [place] [address] Health Maintenance Due Date Last Done Comments [...] as of this encounter Visit Diagnoses Diagnosis Hepatitis C virus infection cured after antiviral drug therapy- Primary documented in this encounter Advance Directives Latest [...]
--- OUTSIDE RECORDS SUMMARY | 2023-04-04 11:12 | External Medical Summary ---
Author Name Unknown Address Unknown Organization K01:[facility] [place] [address] [place] [address] Laboratory Report Ordering Provider Test Date Status ALEX PADILLA 03/04/2023 07:32:55 Final Observation Date Value Abnormality Reference (Units ) Status WBC, Total 03/04/2023 07:32:55 4.87 4.00-10.80 (K/uL) Final RBC 03/04/2023 07:32:55 4.10 4.50-5.25 (M/uL) Final Hemoglobin 03/04/2023 07:32:55 12.1 Below low normal 14.0-16.8 (g/dL) Final HCT 03/04/2023 07:32:55 38.6 Below low normal 40.0-48.4 (%) Final MCV 03/04/2023 07:32:55 94.1 82.0-99.5 (fL) Final MCH 03/04/2023 07:32:55 29.5 27.0-34.0 (pg) Final MCHC 03/04/2023 07:32:55 31.3 32.0-36.0 (g/dL) Final RDW 03/04/2023 07:32:55 13.2 11.5-15.5 (%) Final Platelets 03/04/2023 07:32:55 244 140-400 (K/uL) Final MPV 03/04/2023 07:32:55 10.8 6.6-11.1 (fL) Final Nucleated erythrocytes/100 leukocytes [Ratio] in Blood by Automated count 03/04/2023 07:32:55 0 <=0 (/100 WBCs) Final Performing Location [facility] - [address] [place] [address]
--- OUTSIDE RECORDS SUMMARY | 2023-04-04 11:12 | External Medical Summary | Summary of Care ---
Author Name Unknown Organization [facility] Address [address] [place] [address] Phone [phone] Care Team Providers Care Mold Changer Name Role Phone Unavailable Primary Care Provider Unavailabl e Encounter Details Date Type Department Care Team (Latest Contact Info) Description 02/04/2023 2:00 PM [facility] Telemedicine Transplant Clinic, [place] [address] [place] [address] Jimenez Roberson, S[place]VINA [address] [place] [address] Immunosuppressive management encounter following kidney transplant* Allergies Active Allergy Reactions Criticality Noted Date Comments Sulfamethoxazole-Trimethoprim Rash 2022 documented as of this encounter (statuses as of 02/09/2023) Medications Medication Sig Dispensed Refills Start Date [...] as of this encounter (statuses as of 02/09/2023) Active Problems Problem Noted Date Diagnosed Date [...] as of this encounter (statuses as of 02/09/2023) Resolved Problems Problem Noted Date Diagnosed Date Resolved Date Closed fracture of navicular bone of wrist 05/05/2007 03/26/2017 documented as of this encounter (statuses as of 02/09/2023) Immunizations Name Administration Dates Next Due COVID-19 [...] 1 Date of Transplant: 03/03/22 UNOS ID: [id number] Donor info: 44M. KDPI 41%. CIT 20 hr 42 min, WIT 38 min. 2 arteries of donor kidney with lower poleanastomosed to inferior epigastric artery Original Disease: HTN Dialysis Vintage: pre-dialysis CMV status: +/- EBV +/+ Induction therapy: Thymoglobulin Biopsy History: Reperfusion biopsy: No evidence of acute tubular injury. Negative for rejection. Glomerulosclerosis (2/59). No significant interstitial fibrosis or tubular atrophy. [...] two unique identifiers. Patient (or authorized legal apparel trimmings sales representative) was then informed that this was a Telemedicine visit and being conducted confidentially over secure lines. Methods to assure confidentiality were taken. Patient acknowledged consent and understanding of pr ivacy and security of the Telemedicine visit. The patient agreed to participate. Jimenez Roberson DNP, [facility] Advanced Practitioner - Transplant and Liver Surgery documented in this encounter Plan of Treatment Upcoming Encounters Date Type Department Care Team (Late st Contact Info) Description 03/11/2023 7:50 AM EST Pharmacy Hepatology, [address] [address] [place], Pharmacist Hepatology [address] [place] [id number] 06/17/2023 2:30 PM EDT Telemedicine Transplant Clinic, [address] [address] Jimenez Roberson DNP [address] [place] [address] Health Maintenance Due Date Last Done Comments [...]
--- OUTSIDE RECORDS SUMMARY | 2023-04-04 11:12 | External Medical Summary ---
Author Name Unknown Address Unknown Organization K01:LABORATORY [facility] [place] - [address] [facility] [address] Laboratory Report Ordering Provider Test Date Status ALEX PADILLA 03/04/2023 07:32:55 Final For monitoring progression o f an HIV positive patient. For HIV screening, use HIV ANTIGEN \T\ ANTIBODY SCREEN W/ CONFIRMATION [[id number]]. Observation Date Value Abnormality Reference (Units) Status HIV-1 RNA 03/04/2023 07:32:55 Negative. No HIV RNA detected. Negative. No HIV RNA detected. Final Genetic variant clinical significance [Interpretation] in Blood or Tissue by Molecular genetics method 03/04/2023 07:32:55 Test results have been reported to [facility]. Final Genetic variant clinical significance [Interpretation] in Blood or Tissue by Molecular genetics method 03/04/2023 07:32:55 Final Genetic variant clinical significance [Interpretation] in Blood or Tissue by Molecular genetics method 03/04/2023 07:32:55 The HIV-1 assay is intended for use in conjunction with clinical presentation and other laboratory markers for the clinical management of HIV-1 infected patients. The test can be used to quantify HIV-1 RNA levels (viral load) in individuals living with HIV-1 for baseline viral load or who may have developed HIV-1 drug resistance while on anti-HIV-1 therapy or who may be noncompliant with anti-HIV-1 therapy. It can also be used to monitor HIV-1 disease progression before or during antiretroviral drug therapy. The HIV-1 assay is not intended for use as a screening test for the presence of HIV-1 in donated blood or plasma or as a diagnostic test to confirm the presence of HIV-1 infection. Final Genetic variant clinical significance [Interpretation] in Blood or Tissue by Molecular genetics method 03/04/2023 07:32:55 Final Additional comments [RFC] 03/04/2023 07:32:55 The HIV-1 assay is an in vitro nucleic acid amplification test for the quantitation of human immunodeficiency virus type 1 (HIV-1) in EDTA plasma of ROG-8-bycwitvy individuals using an automated system for specimen processing, amplification and detection. This test detects and quantifies, but does not discriminate between HIV groups M, N, and O subtypes. The test can quantitate HIV-1 RNA over a reportable range of 20-10,000,000 copies/mL (1.30-7.00 log copies/mL). For low volume specimens (<350uL of plasma) the reportable range is 50-10,000,000 copies/mL (1.70-7.00 log copies/mL). Final Additional comments [RFC] 03/04/2023 07:32:55 The assay was verified and performance characteristics determined by the Molecular Diagnostics Laboratory at [facility]. This test is used for clinical purposes. Final FDA package insert References section 03/04/2023 07:32:55 1. Centers for Disease Control and Prevention and Association of Public Health Laboratories. Laboratory Testing for the Diagnosis of HIV Infection: Updated Recommendations. August 26, 2013. Available at http://stacks.cdc.gov/ view/cdc/55188 Final FDA package insert References section 03/04/2023 07:32:55 2. Javier HF, Day MS, Keron CA, et al: Antiretroviral Drugs for Treatment and Prevention of HIV Infection in Adults: 2016 Recommendations of the International Antiviral Society-[place] Panel. UDAY 2016;316(2):191-210. Available at https://jamanetwork.co m/journals/uday/fullar ticle/4818604 Final FDA package insert References section 03/04/2023 07:32:55 3. Panel on Antiretroviral Guidelines for Adults and Adolescents: Guidelines for the Use of Antiretroviral Agents in Adults and Adolescents Living with HIV. U.S. Department of Health and Human Services. December 16, 2016. Available at https://aidsinfo.nih.g ov/guidelines/html/1/a dvui-lty-zjaqheuxof-ar v/3/suoli-bzw-oftmygz- nwqqhghvgq-ftr-chcrse- up Final Performing Location LABORATORY [facility] [place] - [address] [facility] [address]
--- OUTSIDE RECORDS SUMMARY | 2023-04-04 11:12 | External Medical Summary | Summary of Care ---
Author Name Unknown Organization [facility] Address [address] [place] [address] Phone [phone] Care Team Providers Care Marine Oiler Name Role Phone Unavailable Primary Care Provider Unavailabl e Encounter Details Date Type Department Care Team (Latest Contact Info) Description [facility] [address] [place] [address] Jimenez Roberson, SILVINA [address] [place] [address] Immunosuppressive management encounter following kidney [...] mRNA, LNP-s, No Pre serve, 2-Dose Series ([employer]) 10/29/2021 COVID-19, LNP-s, No Preserve , Yvon-sucrose, [...] No 03/03/2022 documented as of this encounter Miscellaneous Notes * Addendum Note - Humberto Lomax OSA - 02/20/2023 1:38 PM ESTAddended by: HUMBERTO LOMAX on: 02/20/2023 01:38 PM Modules accepted: Orders documented in this encounter Plan of Treatment Upcoming Encounters Date Type Department Care Team (Late st Contact Info) Description 03/11/2023 7:50 AM EST Pharmacy Hepatology, [address] [address] [place], Pharmacist Hepatology [address] [place] [address] 06/17/2023 2:30 PM EDT Telemedicine Transplant Clinic, [address] [address] Jimenez Roberson, DNP [address] [place] [address] Scheduled Orders Name Type Priority Associated Diagnoses Orde r Schedule BK VIRUS DNA, QUANTITATIVE REAL-TIME PCR, BLOOD Lab STAT Immunosuppressive management encounter following kidney transplant Kidney replaced by transplant Expected: 02/20/2023, Expires: 02/21/2024 HIV-1 RNA QUANTITATIVE Lab STAT Immunosuppressive management encounter following kidney transplant Kidney replaced by transplant Expected: 02/20/2023, Expires: 02/21/2024 HEPATITIS B VIRUS DNA, QUANTITATIVE, REAL-TIME PCR Lab STAT Immunosuppressive management encounter following kidney transplant Kidney replaced by transplant Expected: 02/20/2023, Expires: 02/21/2024 HEPATITIS C RNA QUANTITATIVE Lab STAT Immunosuppressive management encounter following kidney [...] On track( 023 12:02 PM EDT) Jimenez Zapata, SILVINA documented as of this encounter Medical [...] Name Relationship Healthcare Agent Relationshi p Communication Jluiann Garner Spouse Health Care Repr esentative (appointed verbally by patient or by statute hierarchy)
--- OUTSIDE RECORDS SUMMARY | 2023-04-04 11:12 | External Medical Summary | Summary of Care ---
Author Name Unknown Organization [facility] Address [address] [place] [address] Phone [phone] Care Team Providers Care Plunger Scoop Operator Name Role Phone Unavailable Primary Care Provider Unavailabl e Reason for Visit * Reason Onset Date Comments Medication Refill 03/05/2023 Encounter Details Date Type Department Care Team (Late st Contact Info) Description 03/05/2023 Refill Transplant Clinic, [place] [address] [place] [address] Jonas Campbell, [place] [address] Kidney replaced by transplant*; Need for prophylactic immunotherapy Allergies Active Allergy Reactions Criticality Noted Date Comments Sulfamethoxazole-Trimethoprim Rash 2022 documented as of this encounter (statuses as of 03/05/2023) Medications Medication Sig Dispensed Refills Start Date End Date Status Betamethasone Dipropionate 0.05 % External Cream (Diprosone)Indicat ions:Rash and nonspecific skin eruption Apply to rash on legs twice daily for two weeks and then on weekends only 45 g 0 03/12/2022 Active valGANciclovir HCl 450 MG Oral Tablet (Valcyte)Indicatio ns:Kidney replaced by transplant,Need for prophylactic immunotherapy [...] Active Clopidogrel Bisulfate 75 MG Oral Tablet (Plavix)Indication s:Kidney replaced by transplant Take 1 Tablet by mouth in the morning. 90 Tablet 3 07/14/2022 Active Dapsone 100 MG Oral TabletIndications: Need for prophylactic measure Take 1 Tablet by mouth in the morning. 30 Tablet 4 08/25/2022 Active Omeprazole 20 MG Oral Capsule Delayed Release (PriLOSEC)Indicati ons:Kidney replaced by transplant,Need for prophylactic immunotherapy Take 1 Capsule by mouth in the morning. 30 Capsule 5 09/22/2022 Active Aspirin 81 MG Oral Tablet Delayed ReleaseIndications :Kidney replaced by transplant,Need for prophylactic immunotherapy Take 1 Tablet by mouth in the morning. 30 Tablet 5 09/22/2022 Active Azithromycin 250 MG Oral Tablet (Zithromax) Take 1 tablet by mouth each morning for 5 days 5 Tablet 0 09/26/2022 Active Additional Information Patient not taking.Reported on 10/14/2022 Mycophenolate Mofetil 250 MG Oral Capsule (Cellcept)Indicati ons:Kidney replaced by transplant,Need for prophylactic immunotherapy Take 2 Capsules by mouth in the morning and 2 Capsules before bedtime. 120 Capsule 5 11/17/2022 Active Tacrolimus 1 MG Oral Capsule (Prograf)Indicatio ns:Need for prophylactic immunotherapy,Kidn ey replaced by transplant Take 3 Capsules by mouth every morning AND 2 Capsules every evening. 240 Capsule 5 03/05/2023 Active Tacrolimus 1 MG Oral Capsule (Prograf)Indicatio ns:Need for prophylactic immunotherapy,Kidn ey replaced by transplant Take 4 Capsules by mouth every morning AND 3 Capsules every evening. 240 Capsule 5 09/04/2022 4 Discontinu ed(Refill) documented as of this encounter (statuses as [...] as of this encounter Miscellaneous Notes * Telephone Encounter - Jimenez Roberson DNP - 03/05/2023 1:14 PM ESTSigned Prescriptions: Disp Refills Tacrolimus 1 MG Oral Capsule (Prograf) 240 Ca*5 Sig: Take 3 Capsules by mouth every morning AND 2 Capsules every evening. Authorizing Provider: JIMENEZ ROBERSON * Telephone Encounter - Jonas Campbell RN - 03/05/2023 12:01 PM EST 03/05/2023 12:01 PM Reviewed labs with Da RAY DNP and Duke Garner > Plan is to decrease FK to 3 in AM and 2 in the PM. Repeat labs in 2-3 weeks. I left VM and [facility] message with this plan. Goal FK 7-9 Latest Reference Range & Units 03/04/23 07:32 Tacrolimus 4.0 - 12.0 ng/mL 13.7 (H) (H): Data is abnormally high Jonas Campbell RN, [facility] Senior Underwriting Assistant Transplant and Liver Surgery Department [facility] [phone] documented in this encounter Plan of Treatment Upcoming Encounters Date Type Department Care Team (Late st Contact Info) Description 03/11/2023 7:50 AM EST Pharmacy Hepatology, [place] [address] [place] [address] [place], Pharmacist Hepatology [address] [place] [address] 06/17/2023 2:30 PM EDT Telemedicine Transplant Clinic, [place] [address], [place] [id number] Jimenez Roberson, [facility] [address], [place] [phone] Health Maintenance Due Date Last Done Comments [...] as of this encounter Visit Diagnoses Diagnosis Kidney replaced by transplant- Primary Need for prophylactic immunotherapy documented in this encounter Advance Directives Latest [...]
--- OUTSIDE RECORDS SUMMARY | 2023-04-04 11:12 | External Medical Summary ---
Author Name Unknown Address Unknown Organization K01:[facility] [place] [address] [place] [address] Laboratory Report Ordering Provider Test Date Status ALEX PADILLA 03/04/2023 07:32:55 Final Normal: <150 mg/ g creatinine
High: 150-500 mg/g creatinine
Very High: >500 mg/g creatinine
Nephrotic: >3000 mg/g creatinine Observation Date Value Abnormality Reference (Units ) Status Protein/Creatinine [Ratio] in Urine 03/04/2023 07:32:55 <85 <150 (mg/g ) Final Protein, Urine 03/04/2023 07:32:55 <4 (mg/dL) Final Creatinine, Urine 03/04/2023 07:32:55 47 (mg/dL) Final Performing Location [facility] [place] [address] [place] [address]
--- OUTSIDE RECORDS SUMMARY | 2023-04-04 11:12 | External Medical Summary | Summary of Care ---
Author Name Unknown Organization [facility] Address [address] [place] [facility] [place] [address] Phone [phone] Care Team Providers Care Associate Professor Of Theology Name Role Phone Unavailable Primary Care Provider Unavailabl e Reason for Visit * Reason Comments Outpatient Testing Encounter Details Date Type Department Care Team (Late st Contact Info) Description 03/04/2023 7:30 AM EST Laboratory Laboratory [address] [place] [phone] [address] [place] [address] Need for prophylactic immunotherapy; Kidney replaced by transplant; Immunosuppressive management encounter following kidney transplant Allergies Active Allergy Reactions Criticality Noted Date Comments Sulfamethoxazole-Trimethoprim Rash 2022 documented as of this encounter (statuses as of 03/04/2023) Medications Medication Sig Dispensed Refills Start Date [...] as of this encounter (statuses as of 03/04/2023) Active Problems Problem Noted Date Diagnosed Date [...] as of this encounter (statuses as of 03/04/2023) Resolved Problems Problem Noted Date Diagnosed Date Resolved Date Closed fracture of navicular bone of wrist 05/05/2007 03/26/2017 documented as of this encounter (statuses as of 03/04/2023) Immunizations Name Administration Dates Next Due COVID-19 [...] Description 03/11/2023 7:50 AM EST Pharmacy Hepatology, [place] [address] [place] [address] [place], Pharmacist Hepatology [address] [place] [address] 06/17/2023 2:30 PM EDT Telemedicine Transplant Clinic, [place] [address] [place] [address] Jimenez Roberson, [facility] [address] [place] [address] Pending Results Name Type Priority Associated Diagnoses Date /Time CBC WITH WBC DIFFERENTIAL Lab STAT Need for prophylactic immunotherapy Kidney replaced by transplant 03/04/2023 7:32 AM EST BASIC METABOLIC PANEL Lab STAT Need for prophylactic immunotherapy Kidney replaced by transplant 03/04/2023 7:32 AM EST TACROLIMUS LEVEL Lab STAT Need for prophylactic immunotherapy Kidney replaced by transplant 03/04/2023 7:32 AM EST PROTEIN/ CREATININE RATIO, URINE Lab STAT Need for prophylactic immunotherapy Kidney replaced by transplant 03/04/2023 7:32 AM EST CYTOMEGALOVIRUS DNA, QUANTITATIVE REAL-TIME PCR Lab STAT Kidney replaced by transplant Need for prophylactic immunotherapy 03/04/2023 7:32 AM EST BK VIRUS DNA, QUANTITATIVE REAL-TIME PCR, BLOOD Lab STAT Immunosuppressive management encounter following kidney transplant Kidney replaced by transplant 03/04/2023 7:32 AM EST HIV-1 RNA QUANTITATIVE Lab STAT Immunosuppressive management encounter following kidney transplant Kidney replaced by transplant 03/04/2023 7:32 AM EST HEPATITIS B VIRUS DNA, QUANTITATIVE, REAL-TIME PCR Lab STAT Immunosuppressive management encounter following kidney transplant Kidney replaced by transplant 03/04/2023 7:32 AM EST HEPATITIS C RNA QUANTITATIVE Lab STAT Immunosuppressive management encounter following kidney transplant Kidney replaced by transplant 03/04/2023 7:32 AM EST CBC Lab STAT Need for prophylactic immunotherapy Kidney replaced by transplant 03/04/2023 7:32 AM EST DIFFERENTIAL, AUTOMATED Lab STAT Need for prophylactic immunotherapy Kidney replaced by transplant 03/04/2023 7:32 AM EST Health Maintenance Due Date Last Done Comments [...] On track( 023 12:02 PM EDT) No Da, Jimenez Zuniga DNP documented as of this encounter [employer] Not on filedocumented as of this encounter Visit Diagnoses Diagnosis Need for prophylactic immunotherapy Kidney replaced by transplant Immunosuppressive management encounter following kidney transplant Encounter for long-term (current) use of other [...]
--- OUTSIDE RECORDS SUMMARY | 2023-04-04 11:12 | External Medical Summary | Summary of Care ---
Author Name Unknown Organization [facility] Address [address] [place] [address] Phone [phone] Care Team Providers Care Packaging Coordinator Name Role Phone Unavailable Primary Care Provider Unavailabl e Encounter Details Date Type Department Care Team (Late st Contact Info) Description 03/09/2023 Orders Only Transplant Clinic, [place] [address] [place] [address] Jimenez Roberson, [place] [address] [place] [address] Kidney replaced by transplant*; Need for prophylactic immunotherapy Allergies Active Allergy Reactions Criticality Noted Date Comments Sulfamethoxazole-Trimethoprim Rash 2022 documented as of this encounter (statuses as of 03/09/2023) Medications Medication Sig Dispensed Refills Start Date [...] as of this encounter (statuses as of 03/09/2023) Active Problems Problem Noted Date Diagnosed Date [...] as of this encounter (statuses as of 03/09/2023) Resolved Problems Problem Noted Date Diagnosed Date Resolved Date Closed fracture of navicular bone of wrist 05/05/2007 03/26/2017 documented as of this encounter (statuses as of 03/09/2023) Immunizations Name Administration Dates Next Due COVID-19 [...] Description 03/11/2023 7:50 AM EST Pharmacy Hepatology, [place] [address] [place] [address] [place], Pharmacist Hepatology [address] [place] [address] 06/17/2023 2:30 PM EDT Telemedicine Transplant Clinic, [place] [address] [place] [address] Jimenez Roberson, DNP [address] [place] [address] Scheduled Orders Name Type Priority Associated Diagnoses Orde r Schedule LIPID PANEL WITH DIRECT LDL IF TG IS HIGH Lab STAT Need for prophylactic immunotherapy Kidney replaced by transplant Expected: 03/09/2023, Expires: 03/09/2024 PTH Lab STAT Need for prophylactic immunotherapy Kidney replaced by transplant Expected: 03/09/2023, Expires: 03/09/2024 25-HYDROXY VITAMIN D Lab STAT Need for prophylactic immunotherapy Kidney replaced by transplant Expected: 03/09/2023, Expires: 03/09/2024 Health Maintenance Due Date Last Done Comments [...]
--- OUTSIDE RECORDS SUMMARY | 2023-04-04 11:12 | External Medical Summary | Summary of Care ---
Author Name Unknown Organization [facility] Address [address] [place] [address] Phone [phone] Care Team Providers Care Engineering Geologist Name Role Phone Unavailable Primary Care Provider Unavailabl e Reason for Visit * Reason Onset Date Comments [facility]: Screening 03/15/2023 Encounter Details Date Type Department Care Team (Late st Contact Info) Description 03/15/2023 Telephone [facility], [facility] [address] [facility] [place] [id number] [facility], Nurse [facility] [address] [facility] [place] [phone] [facility]: Screening Allergies Active Allergy Reactions Criticality Noted Date Comments Sulfamethoxazole-Trimethoprim Rash 2022 documented as of this encounter (statuses as of 03/15/2023) Medications Medication Sig Dispensed Refills Start Date [...] as of this encounter (statuses as of 03/15/2023) Active Problems Problem Noted Date Diagnosed Date [...] as of this encounter (statuses as of 03/15/2023) Resolved Problems Problem Noted Date Diagnosed Date Resolved Date Closed fracture of navicular bone of wrist 05/05/2007 03/26/2017 documented as of this encounter (statuses as of 03/15/2023) Immunizations Name Administration Dates Next Due COVID-19 mRNA, LNP-s, No Pre serve, 2-Dose Series ([employer]) 10/29/2021 COVID-19, LNP-s, No Preserve , Yvon-sucrose, [...] encounter Miscellaneous Notes * Telephone Encounter - Lisa Juárez LPN - 03/15/2023 7:03 PM EST [facility]ner was referred as a potential candidate for enrollment for [facility]. A review of this chart was completed and: [facility] does not meet criteria for enrollment into [facility]. Referral Source: Monthly Proactive Eligibility List Criteria for Ineligibility: Not Located in Service Area Referring care team was notified via : [employer] communication Pt is located in the [facility] service area but does not have the multiple complex medical dx required for enrollment. documented in this encounter Plan of Treatment Upcoming Encounters Date Type Department Care Team (Late st Contact Info) Description 06/17/2023 2:30 PM EDT Telemedicine Transplant Clinic[address] [address] Jimenez Roberson, [facility] [address] [place] [address] Health Maintenance Due Date Last Done Comments [...]
--- OUTSIDE RECORDS SUMMARY | 2023-04-04 11:12 | External Medical Summary | Summary of Care ---
Author Name Unknown Organization [facility] Address [address] [place] [address] Phone [phone] Care Team Providers Care Family Development Extension Specialist Name Role Phone Unavailable Primary Care Provider Unavailabl e Reason for Visit * Reason Onset Date Comments Medication Refill 01/29/2023 Dapsone Encounter Details Date Type Department Care Team (Late st Contact Info) Description [facility] [address] [place], [place] [phone] Flip Zuniga MD [address] [place], [place] [phone] Need for prophylactic measure Allergies Active Allergy Reactions Criticality Noted Date Comments Sulfamethoxazole-Trimethoprim Rash 2022 documented as of this encounter (statuses as of 01/29/2023) Medications Medication Sig Dispensed Refills Start Date [...] as of this encounter (statuses as of 01/29/2023) Active Problems Problem Noted Date Diagnosed Date [...] as of this encounter (statuses as of 01/29/2023) Resolved Problems Problem Noted Date Diagnosed Date Resolved Date Closed fracture of navicular bone of wrist 05/05/2007 03/26/2017 documented as of this encounter (statuses as of 01/29/2023) Immunizations Name Administration Dates Next Due COVID-19 [...] encounter Miscellaneous Notes * Telephone Encounter - Jonas Campbell RN - 01/29/2023 8:48 AM ESTRefused Prescriptions: Disp Refills Dapsone 100 MG Oral Tablet 30 Tab*4 Sig: Take 1 Tablet by mouth in the morning.Refused By: Pablito CAMPBELL for Refusal: Course of treatment complete-------- documented in this encounter Plan of Treatment Upcoming Encounters Date Type Department Care Team (Late st Contact Info) Description 02/04/2023 2:00 PM EST Telemedicine Transplant Clinic, [place] [address] [place] [address] Jimenez Roberson DNP [address] [place] [address] 03/11/2023 7:50 AM EST Pharmacy Hepatology, [place] [address] [place] [address] [place], Pharmacist Hepatology [facility] [place] [address] Health Maintenance Due Date Last Done Comments [...] encounter Visit Diagnoses Diagnosis Need for prophylactic measure Unspecified prophylactic or treatment measure documented in this encounter Advance Directives Latest [...] verbally by patient or by statute hierarchy) [phone] ([employer]
--- OUTSIDE RECORDS SUMMARY | 2023-04-04 11:13 | External Medical Summary ---
Author Name Unknown Address Unknown Organization [id number]:[facility] - [address] [place] [address] Laboratory Report Ordering Provider Test Date Status ALEX PADILLA 12/17/2022 07:46:28 Final Observation Date Value Abnormality Reference (Units ) Status WBC, Total 12/17/2022 07:46:28 5.66 4.00-10.80 (K/uL) Final RBC 12/17/2022 07:46:28 3.86 4.50-5.25 (M/uL) Final Hemoglobin 12/17/2022 07:46:28 11.1 Below low normal 14.0-16.8 (g/dL) Final HCT 12/17/2022 07:46:28 36.2 Below low normal 40.0-48.4 (%) Final MCV 12/17/2022 07:46:28 93.8 82.0-99.5 (fL) Final MCH 12/17/2022 07:46:28 28.8 27.0-34.0 (pg) Final MCHC 12/17/2022 07:46:28 30.7 32.0-36.0 (g/dL) Final RDW 12/17/2022 07:46:28 13.2 11.5-15.5 (%) Final Platelets 12/17/2022 07:46:28 243 140-400 (K/uL) Final MPV 12/17/2022 07:46:28 10.7 6.6-11.1 (fL) Final Nucleated erythrocytes/100 leukocytes [Ratio] in Blood by Automated count 12/17/2022 07:46:28 0 <=0 (/100 WBCs) Final Performing Location [facility] - [address] [place] [address]
--- OUTSIDE RECORDS SUMMARY | 2023-04-04 11:13 | External Medical Summary ---
Author Name Unknown Address Unknown Organization [id number]:[facility] - [address] [place] [address] Laboratory Report Ordering Provider Test Date Status TODD PADILLAARIA 01/14/2023 07:48:00 Final Observation Date Value Abnormality Reference (Units) Status Cytomegalovirus DNA [Presence] in Serum or Plasma by GLADYS with probe detection 01/14/2023 07:48:00 CMV DNA not detected CMV DNA not detected Final Performing Location [facility] - [address] [place] [address]
--- OUTSIDE RECORDS SUMMARY | 2023-04-04 11:13 | External Medical Summary | Summary of Care ---
Author Name Unknown Organization [facility] Address [address] [place] [facility] [place] [address] Phone [phone] Care Team Providers Care Senior Principal Name Role Phone Unavailable Primary Care Provider Unavailabl e Reason for Visit * Reason Comments Outpatient Testing Encounter Details Date Type Department Care Team (Late st Contact Info) Description 01/14/2023 7:50 AM EST Laboratory Laboratory [address] [place] [phone] [address] [place] [address] Need for prophylactic measure; Kidney replaced by transplant; Need for prophylactic immunotherapy Allergies Active Allergy Reactions Criticality Noted Date Comments Sulfamethoxazole-Trimethoprim Rash 2022 documented as of this encounter (statuses as of 01/14/2023) Medications Medication Sig Dispensed Refills Start Date [...] as of this encounter (statuses as of 01/14/2023) Active Problems Problem Noted Date Diagnosed Date [...] as of this encounter (statuses as of 01/14/2023) Resolved Problems Problem Noted Date Diagnosed Date Resolved Date Closed fracture of navicular bone of wrist 05/05/2007 03/26/2017 documented as of this encounter (statuses as of 01/14/2023) Immunizations Name Administration Dates Next Due COVID-19 [...] 02/04/2023 2:00 PM EST Telemedicine Transplant Clinic, [place] [address] [place] [address] Jimenez Roberson, [facility] [address] [place] [address] 03/11/2023 7:50 AM EST Pharmacy Hepatology, [place] [address] [place] [address] [place], Pharmacist Hepatology [facility] [place] [place] [address] Pending Results Name Type Priority Associated Diagnoses Date /Time BK VIRUS DNA, QUANTITATIVE REAL-TIME PCR, BLOOD Lab Routine Need for prophylactic measure Kidney replaced by transplant 01/14/2023 7:48 AM EST CBC WITH WBC DIFFERENTIAL Lab STAT Need for prophylactic immunotherapy Kidney replaced by transplant 01/14/2023 7:48 AM EST BASIC METABOLIC PANEL Lab STAT Need for prophylactic immunotherapy Kidney replaced by transplant 01/14/2023 7:48 AM EST TACROLIMUS LEVEL Lab STAT Need for prophylactic immunotherapy Kidney replaced by transplant 01/14/2023 7:48 AM EST PROTEIN/ CREATININE RATIO, URINE Lab STAT Need for prophylactic immunotherapy Kidney replaced by transplant 01/14/2023 7:48 AM EST CYTOMEGALOVIRUS DNA, QUANTITATIVE REAL-TIME PCR Lab STAT Kidney replaced by transplant Need for prophylactic immunotherapy 01/14/2023 7:48 AM EST CBC Lab STAT Need for prophylactic immunotherapy Kidney replaced by transplant 01/14/2023 7:48 AM EST DIFFERENTIAL, AUTOMATED Lab STAT Need for prophylactic immunotherapy Kidney replaced by transplant 01/14/2023 7:48 AM EST Health Maintenance Due Date Last Done Comments Pneumococcal Vaccine: Pediatrics (0 to 5 Years) and At-Risk Patients (6 to 64 Years) (1 - PCV) 05/18/1997 Depression Screening 06/14/2021 06/14/2020 COVID-19 Vaccine (3 - Pfizer risk series) 11/26/2021 10/29/2021, 10/08/2021 Influenza Vaccine (FLU shot) (#1) 2022 GFR 06/18/2023 12/17/2022, 10/01, 10/07/2022, Additional history exists Albumin/Creatinine Ratio 08/07/2023 023, [...] prophylactic measure Unspecified prophylactic or treatment measure Kidney replaced by transplant Need for prophylactic immunotherapy documented in this [...]
--- OUTSIDE RECORDS SUMMARY | 2023-04-04 11:13 | External Medical Summary | Summary of Care ---
Author Name Unknown Organization [facility] Address [address] [place] [address] Phone [phone] Care Team Providers Care Sheetfed Press Operator Name Role Phone Unavailable Primary Care Provider Unavailabl e Encounter Details Date Type Department Care Team Description 12/17/2022 Orders Only Transplant Clinic, [place] [address] [place] [address] Jimenez Roberson, [place] [address] [place] [address] Kidney replaced by transplant*; Immunosuppressive management encounter following kidney transplant Allergies Active Allergy Reactions Severity Noted Date Comments Sulfamethoxazole-Trimethoprim Rash 2022 documented as of this encounter (statuses as of 12/17/2022) Medications Medication Sig Dispensed Refills Start Date [...] as of this encounter (statuses as of 12/17/2022) Active Problems Problem Noted Date DADA (acute kidney injury) 09/26/2022 Renal infarct of kidney transplant 09/26 Stage 3a chronic kidney disease 09/27/19 23 Normocytic anemia 09/26/2022 Pneumonia of right middle lobe due to in fectious organism 09/26/2022 Acute bronchitis due to Rhinovirus 09/26 Kidney replaced by transplant 03/03/2022 Immunosuppression 03/03/2022 Liver lesion 06/14/2020 Renal atrophy, right 06/14/2020 HTN, goal below 130/80 11/26/2017 CKD (chronic kidney disease) stage 4, GF R 15-29 ml/min 07/30/2017 Varicella without complication 1 Migraine variant 09/07/2009 documented as of this encounter (statuses as of 12/17/2022) Resolved Problems Problem Noted Date Resolved Date Closed fracture of navicular bone of wrist 05/0403/26/2017 documented as of this encounter (statuses as of 12/17/2022) Immunizations Name Administration Dates Next Due COVID-19 mRNA, LNP-s, No Pre serve, 2-Dose Series ([employer]) 10/29/2021 COVID-19, LNP-s, No Preserve , Yvon-sucrose, [...] = 0.6 oz pur e alcohol) social Food Insecurity Answer Date Recorded Within the past 12 months, y ou worried that your food would run out before you got money to buy more. Never true 06/14/2020 Within the past 12 months, t he food you bought just didn't last and you didn't have money to get more. Never true 06/14/2020 Education Answer Date Recorded What is the highest level of school you have completed or the highest degree you have received? High school graduate 10/14/2021 Sex Assigned at Date Recorded Not on file Job Start Date Occupation [...] or making decisions? (5 years old or older No 03/03/2022 documented as of this encounter Plan of Treatment Upcoming Encounters Date Type Specialty Care Team Description 12/22/2022 Office Visit Cardiology Octavia Givens CRNP [address] [place] [address] 02/04/2023 Telemedicine Transplant Clinic Jimenez Roberson DNP [address] [place], [place] [id number] 03/11/2023 Pharmacy Gastroenterology [place], Pharmacist Hepatology [address] [place] [address] Scheduled Orders Name Type Priority Associated Diagnoses Orde r Schedule LIPID PANEL WITH DIRECT LDL IF TG IS HIGH Lab STAT Kidney replaced by transplant Immunosuppressive management encounter following kidney transplant Expected: 12/17/2022, Expires: 12/18/2023 PTH Lab STAT Kidney replaced by transplant Immunosuppressive management encounter following kidney transplant Expected: 12/17/2022, Expires: 12/18/2023 25-HYDROXY VITAMIN D Lab STAT Kidney replaced by transplant Immunosuppressive management encounter following kidney transplant Expected: 12/17/2022, Expires: 12/18/2023 Health Maintenance Due Date Last Done Comments Pneumococcal Vaccine: Pediatrics (0 to 5 Years) and At-Risk Patients (6 to 64 Years) (1 - PCV) 05/18/1997 Depression Screening 06/14/2021 06/14/2020 COVID-19 Vaccine (3 - Pfizer risk series) 11/26/2021 10/29/2021, 10/08/2021 Influenza Vaccine (FLU shot) (#1) 2022 GFR 04/30/2023 10/28/2022, 09/2022, 09/29/2022, Additional history exists Albumin/Creatinine Ratio 08/07/2023 023, [...] Diagnoses Diagnosis Kidney replaced by transplant- Primary Immunosuppressive management encounter following kidney transplant Encounter [...]
--- OUTSIDE RECORDS SUMMARY | 2023-04-04 11:13 | External Medical Summary | Summary of Care ---
Author Name Unknown Organization [facility] Address [address] [place] [address] Phone [phone] Care Team Providers Care Medicare Specialist Name Role Phone Unavailable Primary Care Provider Unavailabl e Encounter Details Date Type Department Care Team Description 10/29/2022 Telemedicine Transplant Clinic, [place] [address] [place] [address] Jimenez Roberson [facility] [address] [place] [address] Immunosuppressive management encounter following kidney transplant* Allergies Active Allergy Reactions Severity Noted Date Comments Sulfamethoxazole-Trimethoprim Rash 2022 documented as of this encounter (statuses as of 10/29/2022) Medications Medication Sig Dispensed Refills Start Date [...] 10/14/2022 Mycophenolate Mofetil 250 MG Oral Capsule (Cellcept) Take 2 Capsules by mouth in the morning and 2 Capsules before bedtime. 0 10/06/2022 Active documented as of this encounter (statuses as of 10/29/2022) Active Problems Problem Noted Date DADA (acute [...] as of this encounter (statuses as of 10/29/2022) Resolved Problems Problem Noted Date Resolved Date Closed fracture of navicular bone of wrist 05/0403/26/2017 documented as of this encounter (statuses as of 10/29/2022) Immunizations Name Administration Dates Next Due COVID-19 [...] Progress Notes * Jimenez Roberson, DNP - 10/29/2022 1:59 PM EDT Images from the original note were not included. 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 Donor Info: Transplant number: 1 Date of Transplant: 03/03/22 UNOS ID: [id number] Donor info: 44M. KDPI 41%. CIT 20 [...] - 4/3 Cellcept - 500 mg BID Active Patient Thresholds Lab Low High Effective Since Comment Tacrolimus Level 8 10 03/04/2022 Interval History: Doing very well overall. No significant complaints or concerns. No recent issues.Completely recovered from URI. Has restarted CellCept. Physical Exam There were no vitals filed for this visit. Physical Exam Constitutional: General: He is not in acute distress. Appearance: Normal appearance. HENT: Head: Normocephalic and atraumatic. Right Ear: External ear normal. Left Ear: External ear normal. Eyes: Pupils: Pupils are equal, round, and reactive to light. Pulmonary: Effort: Pulmonary effort is normal. Musculoskeletal: Right lower leg: No edema. Left lower leg: No edema. Neurological: General: No focal deficit present. Mental Status: He is alert. Psychiatric: Mood and Affect: Mood normal. Labs reviewed. Notable findings: Creatinine 2.0, stable. Electrolytes within normal limits with the exception of potassium which was slightly elevated at 5.2. Anemia is improving. No albuminuria. Tacrolimus level 7.9. Assessment and Plan Status-post kidney transplant. Renal function: Stable. Last creatinine and GFR: Lab Results Component Value Date CREAT 2.0 (H) 10/28/2022 EGFR 45 (L) 10/28/2022 Management of Immunosuppression. Tolerating immunosuppression regimen well. We will check immunosuppressant levels every 2 weeks and adjust as needed, tacrolimus target 7-9. Continue tacrolimus 4/3 -last level at goal Continue MMF 500 mg twice daily Wrap-Up Follow-up: Return in about 3 months (around 01/29/2023) for post-transplant follow-up, with me, labs in 2 weeks then monthly. I spent a total of 35 minutes on the date of service in preparation, delivery, and documentation ofthe care provided to Duke Garner excluding any time spent in the performance of separately billed services. Telemedicine: Patient location: HOME. I was in a hospital or clinic location. After connecting through televideo,patient was verified with two unique identifiers. Patient (or authorized legal herbicide service sales representative) was then informed that this was a Telemedicine visit and being conducted confidentially over secure lines. Methods to assure confidentiality were taken. Patient acknowledged consent and understanding of pr ivacy and security of the Telemedicine visit. The patient agreed to participate. documented in this encounter Plan of Treatment Upcoming Encounters Date Type Specialty Care Team Description 12/22/2022 Office Visit Cardiology Octavia Givens CRNP [address] [facility] [place] [address] 03/11/2023 Pharmacy [facility] [place], Pharmacist Hepatology [address] [place] [address] [place] [address] Health Maintenance Due Date Last Done Comments Pneumococcal Vaccine: Pediatrics (0 to 5 Years) and At-Risk Patients (6 to 64 Years) (1 - PCV) 05/18/1997 Depression Screening, Annual for Pts 12 and Over 06/14/2021 06/14/2020 COVID-19 Vaccine (3 - Pfizer risk series) 11/26/2021 10/29/2021, 10/08/2021 Influenza Vaccine (FLU shot) (#1) 2022 GFR 04/30/2023 10/28/2022, 08/09/2022, 09/29/2022, Additional history exists Albumin/Creatinine Ratio 08/07/2023 023, 06/03/2022, 05/13/2022, Additional history exists DTaP,Tdap,and Td Vaccines (7 - Td or Tdap) 07/26/2024 07/26/2014, 01/12/2008, 10/14/2002, Additional history exists Hepatitis B Completed 12/19/1994, 12/01, 06/19/1994, Additional history exists MENINGOCOCCAL (MENACTRA/MENVEO) Aged Out 01/07/2007, 01/07/2007 No longer eligibl e based on patient's age to complete this topic Nephrology Referral Discontinued 03/10/2022 Hepatitis C Screening Completed 08/18/2022 , 05/07/2022, 04/07/2022, Additional history exists GARDASIL-HPV IMMUNIZATION SERIES Aged Out No longer [...]
--- OUTSIDE RECORDS SUMMARY | 2023-04-04 11:13 | External Medical Summary | Summary of Care ---
Author Name Unknown Organization [facility] Address [address] [place] [address] Phone [phone] Care Team Providers Care Tele Tech Name Role Phone Unavailable Primary Care Provider Unavailabl e Reason for Visit * Reason Onset Date Comments Medication Refill 11/17/2022 Encounter Details Date Type Department Care Team Description 11/17/2022 Refill Transplant Clinic, [place] [address] [place] [address] Jonas Campbell, [place] [address] Kidney replaced by transplant*; Need for prophylactic immunotherapy Allergies Active Allergy Reactions Severity Noted Date Comments Sulfamethoxazole-Trimethoprim Rash 2022 documented as of this encounter (statuses as of 11/17/2022) Medications Medication Sig Dispensed Refills Start Date [...] 08/25/2022 Active Tacrolimus 1 MG Oral Capsule (Prograf)Indicatio [...] before bedtime. 120 Capsule 5 11/17/2022 Active Mycophenolate Mofetil 250 MG Oral Capsule (Cellcept) Take 2 Capsules by mouth in the morning and 2 Capsules before bedtime. 0 10/06/2022 3 Discontinu ed(Refill) documented as of this encounter (statuses as of 11/17/2022) Active Problems Problem Noted Date DADA (acute [...] as of this encounter (statuses as of 11/17/2022) Resolved Problems Problem Noted Date Resolved Date Closed fracture of navicular bone of wrist 05/0403/26/2017 documented as of this encounter (statuses as of 11/17/2022) Immunizations Name Administration Dates Next Due COVID-19 [...] Telephone Encounter - Jimenez Roberson DNP - 11/17/2022 8:14 AM EDTSigned Prescriptions: Disp Refills Mycophenolate Mofetil 250 MG Oral Capsule *120 Ca*5 Sig: Take 2 Capsules by mouth in the morning and 2 Capsules before bedtime.Authorizing Provider: JIMENEZ ROBERSON documented in this encounter Plan of Treatment Upcoming Encounters Date Type Specialty Care Team Description 12/22/2022 Office Visit Cardiology Octavia Givens CRNP [address] [facility] [place] [address] 02/04/2023 Telemedicine Transplant Clinic Jimenez Roberson DNP [address] [place] [address] 03/11/2023 Pharmacy Gastroenterology [place], Pharmacist Hepatology [address] [place] [address] Health Maintenance Due Date Last Done Comments Pneumococcal Vaccine: Pediatrics (0 to 5 Years) and At-Risk Patients (6 to 64 Years) (1 - PCV) 05/18/1997 Depression Screening 06/14/2021 06/14/2020 COVID-19 Vaccine (3 - Pfizer risk series) 11/26/2021 10/29/2021, 10/08/2021 Influenza Vaccine (FLU shot) (#1) 2022 GFR 04/30/2023 10/28/2022, 08/0 09/2022, 09/29/2022, Additional history exists Albumin/Creatinine Ratio [...] verbally by patient or by statute hierarchy) [phone] (LeadiD)
--- OUTSIDE RECORDS SUMMARY | 2023-04-04 11:13 | External Medical Summary ---
Author Name Unknown Address Unknown Organization [facility] - [address] [place] [address] Laboratory Report Ordering Provider Test Date Status VALERIEALEX 12/17/2022 07:46:28 Final Deficient: <20 ng/mL
Ins ufficient: 20-29 ng/mL
Recommended/Optimum:30-50 ng/mL

Vitamin D intoxication is rare. If suspicious of Vitamin D toxicity, evaluation of serum Calcium and PTH is recommended. Observation Date Value Abnormality Reference (Units ) Status 25-OH Vitamin D total 12/17/2022 07:46:28 44 >19 (ng/mL) Final Performing Location [facility] - [address] [place] [address]
--- OUTSIDE RECORDS SUMMARY | 2023-04-04 11:13 | External Medical Summary ---
Author Name Unknown Address Unknown Organization K01:[facility] - [address] [place] [address] Laboratory Report Ordering Provider Test Date Status ALEX PADILLA 12/17/2022 07:46:28 Final Observation Date Value Abnormality Reference (Units ) Status SYNC LEUKOCYTES IN BLOOD BY AUTOMATED COUNT 12/17/2022 07:46:28 5.66 4.00-10.80 (K/uL) Final Segs 12/17/2022 07:46:28 62.2 40.0-75.0 (%) Final Lymphs % 12/17/2022 07:46:28 19.6 18.0-42.0 (%) Final Monos 12/17/2022 07:46:28 12.4 Above high normal 1.0-11.0 (%) Final Eosinophils 12/17/2022 07:46:28 4.9 0.0-6.0 (%) Final Basos 12/17/2022 07:46:28 0.5 0.0-2.0 (%) Final Immature Granulocyte, Percent 12/17/2022 07:46:28 0.4 0.0-2.0 (%) Final Absolute Segs 12/17/2022 07:46:28 3.52 1.80-7.70 (K/uL) Final Lymphs, absolute 12/17/2022 07:46:28 1.11 1.00-4.80 (K/ul) Final Monos, Abs 12/17/2022 07:46:28 0.70 0.00-1.10 (K/uL) Final Eos, Abs 12/17/2022 07:46:28 0.28 0.00-0.70 (K/uL) Final Basos, Abs 12/17/2022 07:46:28 0.03 0.00-0.20 (K/uL) Final Immature Granulocytes, Number 12/17/2022 07:46:28 0.02 0.00-0.20 (K/uL) Final Performing Location [facility] - [address] [facility] [address]
--- OUTSIDE RECORDS SUMMARY | 2023-04-04 11:13 | External Medical Summary | Summary of Care ---
Author Name Unknown Organization [facility] Address [address] [place] [facility] [place] [address] Phone [phone] Care Team Providers Care Master Tax Advisor Name Role Phone Unavailable Primary Care Provider Unavailabl e Reason for Visit * Reason Comments Outpatient Testing Encounter Details Date Type Department Care Team (Late st Contact Info) Description 01/14/2023 7:50 AM EST Laboratory Laboratory [address] [place] [id number] [address] [place] [address] Need for prophylactic measure; Kidney replaced by transplant; Need for prophylactic immunotherapy Allergies Active Allergy Reactions Criticality Noted Date Comments Sulfamethoxazole-Trimethoprim Rash 2022 documented as of this encounter (statuses as of 01/15/2023) Medications Medication Sig Dispensed Refills Start Date [...] as of this encounter (statuses as of 01/15/2023) Active Problems Problem Noted Date Diagnosed Date [...] as of this encounter (statuses as of 01/15/2023) Resolved Problems Problem Noted Date Diagnosed Date Resolved Date Closed fracture of navicular bone of wrist 05/05/2007 03/26/2017 documented as of this encounter (statuses as of 01/15/2023) Immunizations Name Administration Dates Next Due COVID-19 mRNA, LNP-s, No Pre serve, 2-Dose Series ([employer]) 10/29/2021 COVID-19, LNP-s, No Preserve , Yvno-sucrose, Ages 12+ (Pfizer) 10/08/2021 DTP Vaccine 09/25/1995, [...] encounter Miscellaneous Notes * Addendum Note - Brenda Quintero TECH - 01/15/2023 8:32 AM ESTAddended by: BRENDA QUINTERO on: 01/15/2023 08:32 AM Modules accepted: Orders documented in this encounter Plan of Treatment Upcoming Encounters Date Type Department Care Team (Late st Contact Info) Description 02/04/2023 2:00 PM EST Telemedicine Transplant Clinic, [address] [address] [address] [address] 03/11/2023 7:50 AM EST Pharmacy Hepatology, [place] [address] [place] [address] [place], Pharmacist Hepatology [address] [place] [address] Pending Results Name Type Priority Associated Diagnoses Date /Time BK VIRUS DNA, QUANTITATIVE REAL-TIME PCR, BLOOD Lab Routine Need for prophylactic measure Kidney replaced by transplant 01/14/2023 7:48 AM EST TACROLIMUS LEVEL Lab STAT Need for prophylactic immunotherapy Kidney replaced by transplant 01/14/2023 7:48 AM EST CYTOMEGALOVIRUS DNA, QUANTITATIVE REAL-TIME PCR Lab Routine Kidney replaced by transplant 01/14/2023 7:48 AM [...] Not on filedocumented as of this encounter Procedures Procedure Name Priority Date/Time Associated Diagnosis Comments DIFFERENTIAL, AUTOMATED STAT 01/14/2023 7:48 AM EST Need for prophylactic immunotherapy Kidney replaced by transplant PROTEIN/ CREATININE RATIO, URINE STAT 01/14/2023 7:48 AM EST Need for prophylactic immunotherapy Kidney replaced by transplant BASIC METABOLIC PANEL STAT 01/14/2023 7:48 AM EST Need for prophylactic immunotherapy Kidney replaced by transplant CBC STAT 01/14/2023 7:48 AM EST Need for prophylactic immunotherapy Kidney replaced by transplant CBC STAT 01/14/2023 7:48 AM EST Need for prophylactic immunotherapy Kidney replaced by transplant documented in this encounter Results * (ABNORMAL) DIFFERENTIAL, AUTOMATED (01/14/2023 7:48 AM EST) WBC 4.07 4.00 - 10.80 K/uL 01/14/2023 4:52 PM EST [facility] Neutrophils % 50.5 40.0 - 75.0 % 01/14/2023 4:52 PM EST [facility] Lymphocytes % 26.3 18.0 - 42.0 % 01/14/2023 4:52 PM EST [facility] Monocytes % 15.7(H) 1.0 - 11.0 % 01/14/2023 4:52 PM EST [facility] Eosinophils % 6.1(H) 0.0 - 6.0 % 01/14/2023 4:52 PM EST [facility] Basophils % 1.2 0.0 - 2.0 % 01/14/2023 4:52 PM EST [facility] Immature Granulocytes % 0.2 0.0 - 2.0 % 01/14/2023 4:52 PM EST [facility] Absolute Neutrophils 2.05 1.80 - 7.70 K/uL 01/14/2023 4:52 PM EST [facility] Absolute Lymphocytes 1.07 1.00 - 4.80 K/ul 01/14/2023 4:52 PM EST [facility] Absolute Monocytes 0.64 0.00 - 1.10 K/uL 01/14/2023 4:52 PM EST [facility] Absolute Eosinophils 0.25 0.00 - 0.70 K/uL 01/14/2023 4:52 PM EST [facility] Absolute Basophils 0.05 0.00 - 0.20 K/uL 01/14/2023 4:52 PM EST [facility] Absolute Immature Granulocytes 0.01 0.00 - 0.20 K/uL 01/14/2023 4:52 PM EST [facility] Blood Venous blood specimen / Unknown Venipuncture / Unknown 01/14/2023 7:48 AM EST 01/14/2023 7:48 AM EST Jimenez Roberson DNP LAB BLOOD ORDERA [facility]ES [facility] [address], [place] [id number] * (ABNORMAL) CBC (01/14/2023 7:48 AM EST) WBC 4.07 4.00 - 10.80 K/uL 01/14/2023 4:52 PM EST [facility] RBC 3.89 4.50 - 5.25 M/uL 01/14/2023 4:52 PM EST [facility] HGB 11.3(L) 14.0 - 16.8 g/dL 01/14/2023 4:52 PM EST [facility] HCT 37.2(L) 40.0 - 48.4 % 01/14/2023 4:52 PM EST [facility] MCV 95.6 82.0 - 99.5 fL 01/14/2023 4:52 PM EST [facility] MCH 29.0 27.0 - 34.0 pg 01/14/2023 4:52 PM EST [facility] MCHC 30.4 32.0 - 36.0 g/dL 01/14/2023 4:52 PM EST [facility] RDW 14.0 11.5 - 15.5 % 01/14/2023 4:52 PM EST [facility] PLT 253 140 - 400 K/uL 01/14/2023 4:52 PM EST [facility] MPV 10.9 6.6 - 11.1 fL 01/14/2023 4:52 PM EST [facility] nRBCs 0 <=0 /100 WBCs 01/14/2023 4:52 PM EST [facility] Blood Venous blood specimen / Unknown Venipuncture / Unknown 01/14/2023 7:48 AM EST 01/14/2023 7:48 AM EST Jimenez Roberson [facility] LAB BLOOD ORDERA BLES Performing Organization Address City/[facility] de Phone Number [facility] [address] [place] [address] * PROTEIN/ CREATININE RATIO, URINE (01/14/2023 7:48 AM EST) Protein/ Creatinine Ratio, Urine 77 <150 mg/g 01/14/2023 5:21 PM EST [facility] Protein, Random Urine 12 mg/dL 01/14/2023 5:21 PM EST [facility] Creatinine, Random Urine 156 mg/dL 01/14/2023 5:21 PM EST [facility] Urine Non-blood Collection / Unknown 01/14/2023 7:48 AM EST 01/14/2023 7:48 AM EST Narrative [facility] - 01/14/2023 5:21 PM EST Normal: <150 mg/g creatinine High: 150-500 mg/g creatinine Very High: >500 mg/g creatinine Nephrotic: >3000 mg/g creatinine Jimenez Roberson [facility] LAB URINE ORDERA BLES Performing Organization Address [facility] de Phone Number LABORATORY [facility] [address] [place] [address] * (ABNORMAL) BASIC METABOLIC PANEL (01/14/2023 7:48 AM EST) Pathologist [facility] BUN 14 6 - 20 mg/dL 01/14/2023 4:11 PM EST [facility] Creatinine 1.9(H) 0.6 - 1.2 mg/dL 01/14/2023 4:11 PM EST [facility] Estimated Glomerular Filtration Rate 48(L) >=60 mL/min 01/14/2023 4:11 PM EST [facility] Comment:eGFR is calculated b ased on the CKD-EPI 2020 equation Sodium 141 135 - 146 mmol/L 01/14/2023 4:11 PM EST [facility] Potassium 5.1 3.5 - 5.1 mmol/L 01/14/2023 4:11 PM EST [facility] Chloride 105 98 - 107 mmol/L 01/14/2023 4:11 PM EST [facility] CO2 26 22 - 32 mmol/L 01/14/2023 4:11 PM EST [facility] Anion Gap 10 7 - 15 mmol/L 01/14/2023 4:11 PM EST [facility] Glucose 132(H) 70 - 120 mg/dL 01/14/2023 4:11 PM EST [facility] Calcium 9.3 8.4 - 10.2 mg/dL 01/14/2023 4:11 PM EST [facility] Blood Venous blood specimen / Unknown Venipuncture / Unknown 01/14/2023 7:48 AM EST 01/14/2023 7:48 AM EST Jimenez Roberson DNP LAB BLOOD ORDERA BLES [facility] [address] [place] [address] documented in this encounter Visit Diagnoses Diagnosis Need for [...]
--- OUTSIDE RECORDS SUMMARY | 2023-04-04 11:13 | External Medical Summary | Summary of Care ---
Author Name Unknown Organization [facility] Address [address] [facility] [place] [address] Phone [phone] Care Team Providers Care Belt Glass Sander Name Role Phone Unavailable Primary Care Provider Unavailabl e Reason for Visit * Reason Comments Outpatient Testing Encounter Details Date Type Department Care Team Description 12/17/2022 Laboratory Laboratory [address] [place] [phone] [place] [address] Need for prophylactic measure; Kidney replaced by transplant; Need for prophylactic immunotherapy; Immunosuppressive management encounter following kidney transplant Allergies [...] encounter Miscellaneous Notes * Addendum Note - TESSA Arguello - 12/17/2022 4:32 PM EDTAddended by: RENETTA CASTRO on: 12/17/2022 04:32 PM Modules accepted: Orders documented in this encounter Plan of Treatment Upcoming Encounters Date Type Specialty Care Team Description 12/22/2022 Office Visit Cardiology Octavia Givens CRNP [address] [place] [address] 02/04/2023 Telemedicine Transplant Clinic Jimenez Roberson DNP [address] [facility] [place] [address] 03/11/2023 Pharmacy [facility] [place], Pharmacist Hepatology [address] [place] [address] (work) Pending Results Name Type Priority Associated Diagnoses Date /Time BK VIRUS DNA, QUANTITATIVE REAL-TIME PCR, BLOOD Lab Routine Need for prophylactic measure Kidney replaced by transplant 12/17/2022 7:46 AM EDT CYTOMEGALOVIRUS DNA, QUANTITATIVE REAL-TIME PCR Lab Routine Kidney replaced by transplant Immunosuppressive management encounter following kidney transplant 12/17/2022 7:46 AM EDT Health Maintenance Due Date Last Done Comments [...] Date/Time Associated Diagnosis Comments DIFFERENTIAL, AUTOMATED STAT 12/17/2022 7:46 AM EDT Need for prophylactic immunotherapy Kidney replaced by transplant LIPID PANEL WITH DIRECT LDL IF TG IS HIGH STAT 12/17/2022 7:46 AM EDT Kidney replaced by transplant Immunosuppressive management encounter following kidney transplant 25-HYDROXY VITAMIN D STAT 12/17/2022 7:46 AM EDT Kidney replaced by transplant Immunosuppressive management encounter following kidney transplant PROTEIN/ CREATININE RATIO, URINE STAT 12/17/2022 7:46 AM EDT Need for prophylactic immunotherapy Kidney replaced by transplant TACROLIMUS LEVEL STAT 12/17/2022 7:46 AM EDT Need for prophylactic immunotherapy Kidney replaced by transplant BASIC METABOLIC PANEL STAT 12/17/2022 7:46 AM EDT Need for prophylactic immunotherapy Kidney replaced by transplant CBC STAT 12/17/2022 7:46 AM EDT Need for prophylactic immunotherapy Kidney replaced by transplant PTH STAT 12/17/2022 7:46 AM EDT Kidney replaced by transplant Immunosuppressive management encounter following kidney transplant CBC STAT 12/17/2022 7:46 AM EDT Need for prophylactic immunotherapy Kidney replaced by transplant LDL CHOLESTEROL (DIRECT MEASURE) STAT 12/17/2022 7:46 AM EDT Kidney replaced by transplant Immunosuppressive management encounter following kidney transplant documented in this encounter Results * LDL CHOLESTEROL (DIRECT MEASURE) (12/17/2022 7:46 AM EDT) [facility] LDL Cholesterol (Direct Measure) 72 <=129 mg/dL 12/17/2022 4:30 PM EDT LABORATORY [facility] Comment: LDL Cholesterol Reference Ranges (mg/dL): <70 Target level for high risk ASCVD patient <100 Optimal for general population 100-129 Near optimal for general population 130-159 Borderline high 160-189 High >=190 Very high Blood Venous blood specimen / Unknown Venipuncture / Unknown 12/17/2022 7:46 AM EDT 12/17/2022 7:46 AM EDT Jimenez Zuniga Da DNP LAB BLOOD ORDERA BLES Performing Organization Address City/[facility]/ZIP Co de Phone Number LABORATORY [facility] [address] [place] [address] * (ABNORMAL) PTH (12/17/2022 7:46 AM EDT) PTH 87(H) 15 - 65 pg/mL 12/17/2022 3:15 PM EDT LABORATORY [facility] Blood Venous blood specimen / Unknown Venipuncture / Unknown 12/17/2022 7:46 AM EDT 12/17/2022 7:46 AM EDT Jimenez Zuniga Da [facility] LAB BLOOD ORDERA BLES Performing Organization Address [facility] Co de Phone Number LABORATORY [facility] [address] [place] [address] * LIPID PANEL WITH DIRECT LDL IF TG IS HIGH (12/17/2022 7:46 AM EDT) Triglycerides 151 <=174 mg/dL 12/17/2022 2:43 PM EDT LABORATORY [facility] Comment: Triglyceride Reference Ranges (mg/dL): <150 Acceptable 150-174 Borderline high 175-499 High >=500 Very high Cholesterol 142 <200 mg/dL 12/17/2022 2:43 PM EDT LABORATORY [facility] Comment: Total Cholesterol Reference Ranges (mg/dL): <200 Desirable 200-239 Borderline high >=240 High HDL Cholesterol 56 >39 mg/dL 2:43 PM EDT LABORATORY [facility] Comment: HDL Cholesterol Reference Ranges (mg/dL): >=60 High (Desirable) <50 Low (Undesirable) For Females <40 Low (Undesirable) For Males Non-HDL Cholesterol 86 <=159 mg/dL 12/17/2022 2:43 PM EDT LABORATORY [facility] Comment: Non-HDL Cholesterol Reference Range (mg/dL): <100 Target level for high risk ASCVD patient <130 Optimal for general population 130-159 Near optimal for general population 160-189 Borderline High 190-219 High >=220 Very High Blood Venous blood specimen / Unknown Venipuncture / Unknown 12/17/2022 7:46 AM EDT 12/17/2022 7:46 AM EDT Jimenez Zuniga Da [facility] LAB BLOOD ORDERA BLES Performing Organization Address [facility]/ZIP Ma de Phone Number LABORATORY [facility] [address] [place] [address] * 25-HYDROXY VITAMIN D (12/17/2022 7:46 AM EDT) 25-Hydroxy Vitamin D 44 >19 ng/mL 12/17/2022 3:15 PM EDT LABORATORY [facility] Blood Venous blood specimen / Unknown Venipuncture / Unknown 12/17/2022 7:46 AM EDT 12/17/2022 7:46 AM EDT Narrative LABORATORY [facility] - 12/17/2022 3:15 PM EDT Deficient: <20 ng/mL Insufficient: 20-29 ng/mL Recommended/Optimum:30-50 ng/mL Vitamin D intoxication is rare. If suspicious of Vitamin D toxicity, evaluation of serum Calcium and PTH is recommended. Jimenez Roberson [facility] LAB BLOOD ORDERA BLES Performing Organization Address [facility] de Phone Number LABORATORY [facility] [address] [place] [address] * (ABNORMAL) DIFFERENTIAL, AUTOMATED (12/17/2022 7:46 AM EDT) WBC 5.66 4.00 - 10.80 K/uL 12/17/2022 2:35 PM EDT LAB[facility]ORY [facility] Neutrophils % 62.2 40.0 - 75.0 % 12/17/2022 2:35 PM EDT LAB[facility] Lymphocytes % 19.6 18.0 - 42.0 % 12/17/2022 2:35 PM EDT LAB[facility] Monocytes % 12.4(H) 1.0 - 11.0 % 12/17/2022 2:35 PM EDT LAB[facility] Eosinophils % 4.9 0.0 - 6.0 % 12/17/2022 2:35 PM EDT [facility] Basophils % 0.5 0.0 - 2.0 % 12/17/2022 2:35 PM EDT [facility] Immature Granulocytes % 0.4 0.0 - 2.0 % 12/17/2022 2:35 PM EDT [facility] Absolute Neutrophils 3.52 1.80 - 7.70 K/uL 12/17/2022 2:35 PM EDT [facility] Absolute Lymphocytes 1.11 1.00 - 4.80 K/ul 12/17/2022 2:35 PM EDT [facility] Absolute Monocytes 0.70 0.00 - 1.10 K/uL 12/17/2022 2:35 PM EDT [facility] Absolute Eosinophils 0.28 0.00 - 0.70 K/uL 12/17/2022 2:35 PM EDT [facility] Absolute Basophils 0.03 0.00 - 0.20 K/uL 12/17/2022 2:35 PM EDT [facility] Absolute Immature Granulocytes 0.02 0.00 - 0.20 K/uL 12/17/2022 2:35 PM EDT [facility] Blood Venous blood specimen / Unknown Venipuncture / Unknown 12/17/2022 7:46 AM EDT 12/17/2022 7:46 AM EDT Jimenez Roberson [facility] LAB BLOOD ORDERA BLES LABORATORY [facility] [address] [place] [address] * (ABNORMAL) CBC (12/17/2022 7:46 AM EDT) [facility] WBC 5.66 4.00 - 10.80 K/uL 12/17/2022 2:35 PM EDT [facility] RBC 3.86 4.50 - 5.25 M/uL 12/17/2022 2:35 PM EDT [facility] HGB 11.1(L) 14.0 - 16.8 g/dL 12/17/2022 2:35 PM EDT [facility] HCT 36.2(L) 40.0 - 48.4 % 12/17/2022 2:35 PM EDT [facility] MCV 93.8 82.0 - 99.5 fL 12/17/2022 2:35 PM EDT [facility] MCH 28.8 27.0 - 34.0 pg 12/17/2022 2:35 PM EDT LABORATORY [facility] MCHC 30.7 32.0 - 36.0 g/dL 12/17/2022 2:35 PM EDT LABORATORY [facility] RDW 13.2 11.5 - 15.5 % 12/17/2022 2:35 PM EDT LABORATORY [facility] PLT 243 140 - 400 K/uL 12/17/2022 2:35 PM EDT LABORATORY [facility] MPV 10.7 6.6 - 11.1 fL 12/17/2022 2:35 PM EDT LABORATORY [facility] nRBCs 0 <=0 /100 WBCs 12/17/2022 2:35 PM EDT LABORATORY C Blood Venous blood specimen / Unknown Venipuncture / Unknown 12/17/2022 7:46 AM EDT 12/17/2022 7:46 AM EDT Jimenez Roberson DNP LAB BLOOD ORDERA BLES Performing Organization Address [facility] de Phone Number LABORATORY [facility] [address] [place] [address] * PROTEIN/ CREATININE RATIO, URINE (12/17/2022 7:46 AM EDT) Pathologist [facility] Protein/ Creatinine Ratio, Urine 78 <150 mg/g 12/17/2022 3:14 PM EDT LABORATORY [facility] Protein, Random Urine 8 mg/dL 12/17/2022 3:14 PM EDT LABORATORY [facility] Creatinine, Random Urine 103 mg/dL 12/17/2022 3:14 PM EDT LABORATORY [facility] Urine Non-blood Collection / Unknown 12/17/2022 7:46 AM EDT 12/17/2022 7:46 AM EDT Narrative [facility] - 12/17/2022 3:14 PM EDT Normal: <150 mg/g creatinine High: 150-500 mg/g creatinine Very High: >500 mg/g creatinine Nephrotic: >3000 mg/g creatinine Jimenez Roberson DNP LAB URINE ORDERA BLES Performing Organization Address [facility] Co de Phone Number LABORATORY [facility] [address] [place] [address] * TACROLIMUS LEVEL (12/17/2022 7:46 AM EDT) Pathologist [facility] Tacrolimus 8.0 4.0 - 12.0 ng/mL 12/17/2022 2:31 PM EDT LABORATORY [facility] Blood Venous blood specimen / Unknown Venipuncture / Unknown 12/17/2022 7:46 AM EDT 12/17/2022 7:46 AM EDT Narrative LABORATORY [facility] - 12/17/2022 2:31 PM EDT Test performed by Immunoassay on [employer]. Therapeutic ranges vary with type of transplant, time post-transplant, clinical protocols, and testing methodology. Results should be interpreted with clinical presentation and any signs rejection/toxicity. Jimenez Roberson [facility] LAB BLOOD ORDERA BLES LABORATORY [facility] [address] [place] [address] * (ABNORMAL) BASIC METABOLIC PANEL (12/17/2022 7:46 AM EDT) [facility] BUN 17 6 - 20 mg/dL 12/17/2022 2:43 PM EDT LABORATORY [facility] Creatinine 1.9(H) 0.6 - 1.2 mg/dL 12/17/2022 2:43 PM EDT LABORATORY [facility] Estimated Glomerular Filtration Rate 49(L) >=60 mL/min 12/17/2022 2:43 PM EDT LABORATORY [facility] Comment:eGFR is calculated b ased on the CKD-EPI 2020 equation Sodium 140 135 - 146 mmol/L 12/17/2022 2:43 PM EDT [facility] Potassium 4.7 3.5 - 5.1 mmol/L 12/17/2022 2:43 PM EDT LABORATORY C Chloride 108(H) 98 - 107 mmol/L 12/17/2022 2:43 PM EDT LABORATORY C CO2 22 22 - 32 mmol/L 12/17/2022 2:43 PM EDT LABORATORY C Anion Gap 10 7 - 15 mmol/L 12/17/2022 2:43 PM EDT LABORATORY C Glucose 106 70 - 120 mg/dL 12/17/2022 2:43 PM EDT [facility] Calcium 9.6 8.4 - 10.2 mg/dL 12/17/2022 2:43 PM EDT LABORATORY [facility] Blood Venous blood specimen / Unknown Venipuncture / Unknown 12/17/2022 7:46 AM EDT 12/17/2022 7:46 AM EDT Jimenez Zuniga Da DNP LAB BLOOD ORDERA BLES LABORATORY [facility] [address] [place] [address] documented in this encounter Visit Diagnoses Diagnosis Need for prophylactic measure Unspecified prophylactic or treatment measure Kidney replaced by transplant Need for prophylactic immunotherapy Immunosuppressive management encounter following kidney transplant Encounter [...]
--- OUTSIDE RECORDS SUMMARY | 2023-04-04 11:13 | External Medical Summary ---
Author Name Unknown Address Unknown Organization : Laboratory Report Ordering Provider Test Date Status ALEX PADILLA 01/14/2023 07:48:40 Final Observation Date Value Abnormality Reference (Units ) Status Source 01/14/2023 07:48:40 Whole Blood Final BK virus DNA 01/14/2023 07:48:40 Not Detected (copies/mL) Final BK virus DNA [Log #/volume] (viral load) in Specimen by GLADYS with probe detection 01/14/2023 07:48:40 Not Detected (Log cps/mL) Final Reference Range: Not Detecte d
This test was developed and its analytical performance
characteristics have been determined by [employer]
[place], [place]. It has
not been cleared or approved by the U.S. Food and Drug
Administration. This assay has been validated pursuant
to the CLIA regulations and is used for clinical
purposes.

Test Performed at:
[facility]
[address] [facility]
[place], [place] [address]
Félix Longoria M.D., Ph.D.,Director of Laboratories Performing Location
--- OUTSIDE RECORDS SUMMARY | 2023-04-04 11:13 | External Medical Summary | Summary of Care ---
Author Name Unknown Organization [facility] Address [address] [place] [place] [place] [address] Phone [phone] Care Team Providers Care Nylon Winder Name Role Phone Unavailable Primary Care Provider Unavailabl e Reason for Visit * Reason Comments Outpatient Testing Encounter Details Date Type Department Care Team Description 12/17/2022 Laboratory Laboratory [address] [place] [phone] [place] [address] Need for prophylactic measure; Kidney replaced by [...] Cardiology Octavia Givens CRNP [address] [place] [address] 02/04/2023 Telemedicine Transplant Clinic Jimenez Roberson, [place] [address] [place] [address] 03/11/2023 Pharmacy Gastroenterology [place], Pharmacist Hepatology [address] [place] [address] Pending Results Name Type Priority Associated Diagnoses Date /Time BK VIRUS DNA, QUANTITATIVE REAL-TIME PCR, BLOOD Lab Routine Need for prophylactic measure Kidney replaced by transplant 12/17/2022 7:46 AM EDT CBC WITH WBC DIFFERENTIAL Lab STAT Need for prophylactic immunotherapy Kidney replaced by transplant 12/17/2022 7:46 AM EDT BASIC METABOLIC PANEL Lab STAT Need for prophylactic immunotherapy Kidney replaced by transplant 12/17/2022 7:46 AM EDT TACROLIMUS LEVEL Lab STAT Need for prophylactic immunotherapy Kidney replaced by transplant 12/17/2022 7:46 AM EDT PROTEIN/ CREATININE RATIO, URINE Lab STAT Need for prophylactic immunotherapy Kidney replaced by transplant 12/17/2022 7:46 AM EDT CYTOMEGALOVIRUS DNA, QUANTITATIVE REAL-TIME PCR Lab STAT Kidney replaced by transplant Need for prophylactic immunotherapy 12/17/2022 7:46 AM EDT CBC Lab STAT Need for prophylactic immunotherapy Kidney replaced by transplant 12/17/2022 7:46 AM EDT DIFFERENTIAL, AUTOMATED Lab STAT Need for prophylactic immunotherapy Kidney replaced by transplant 12/17/2022 7:46 AM EDT Health Maintenance [...]
--- OUTSIDE RECORDS SUMMARY | 2023-04-04 11:13 | External Medical Summary ---
Author Name Unknown Address Unknown Organization K01:LABORATORY [facility] - [address] [facility] [place] [facility] [address] Laboratory Report Ordering Provider Test Date Status ALEX PADILLA 01/14/2023 07:48:40 Final Test performed by Immuno[employer] y on [employer]. Therapeutic ranges vary with type of transplant, time post-transplant, clinical protocols, and testing methodology. Results should be interpreted with clinical presentation and any signs rejection/toxicity. Observation Date Value Abnormality Reference (Units ) Status Tacrolimus (FK506) 01/14/2023 07:48:40 8.7 4 .0-12.0 (ng/mL) Final Performing Location LABORATORY [facility] - [address] [facility] [address]
--- OUTSIDE RECORDS SUMMARY | 2023-04-04 11:13 | External Medical Summary ---
Author Name Unknown Address Unknown Organization K01:LABORATORY [facility] - [address] [place] [address] Laboratory Report Ordering Provider Test Date Status VALERIEALEX 12/17/2022 07:46:00 Final Observation Date Value Abnormality Reference (Units) Status Cytomegalovirus DNA [Presence] in Serum or Plasma by GLADYS with probe detection 12/17/2022 07:46:00 CMV DNA not detected CMV DNA not detected Final Performing Location LABORATORY [facility] - [address] [place] [address]
--- OUTSIDE RECORDS SUMMARY | 2023-04-04 11:13 | External Medical Summary ---
Author Name Unknown Address Unknown Organization K01:LABORATORY [facility] - [address] [facility] [address] [place] [address] Laboratory Report Ordering Provider Test Date Status ALEX PADILLA 12/17/2022 07:46:28 Final Observation Date Value Abnormality Reference (Units ) Status BUN 12/17/2022 07:46:28 17 6-20 (mg/dL) Final Creatinine 12/17/2022 07:46:28 1.9 Above high normal 0.6-1.2 (mg/dL) Final Glomerular filtration rate/1.73 sq M.predicted [Volume Rate/Area] in Serum, Plasma or Blood by Creatinine-based formula (CKD-EPI) 12/17/2022 07:46:28 49 Below low normal >=60 (mL/min) Final eGFR is calculated based on the CKD-EPI 2020 equation SODIUM 12/17/2022 07:46:28 140 135-146 (m mol/L) Final Potassium 12/17/2022 07:46:28 4.7 3.5-5.1 (m mol/L) Final Cl 12/17/2022 07:46:28 108 Above high normal 98 -107 (mmol/L) Final CO2 12/17/2022 07:46:28 22 22-32 (mmo l/L) Final Anion gap 12/17/2022 07:46:28 10 7-15 (mmol /L) Final Glucose 12/17/2022 07:46:28 106 70-120 (mg /dL) Final Calcium 12/17/2022 07:46:28 9.6 8.4-10.2 ( mg/dL) Final Performing Location LABORATORY [facility] - [address] [place] [address]
--- OUTSIDE RECORDS SUMMARY | 2023-04-04 11:13 | External Medical Summary ---
Author Name Unknown Address Unknown Organization K01:LABORATORY [facility] - [address] [facility] [place] [address] Laboratory Report Ordering Provider Test Date Status ALEX PADILLA 01/14/2023 07:48:40 Final Observation Date Value Abnormality Reference (Units ) Status SYNC LEUKOCYTES IN BLOOD BY AUTOMATED COUNT 01/14/2023 07:48:40 4.07 4.00-10.80 (K/uL) Final Segs 01/14/2023 07:48:40 50.5 40.0-75.0 (%) Final Lymphs % 01/14/2023 07:48:40 26.3 18.0-42.0 (%) Final Monos 01/14/2023 07:48:40 15.7 Above high normal 1.0-11.0 (%) Final Eosinophils 01/14/2023 07:48:40 6.1 Above high normal 0.0-6.0 (%) Final Basos 01/14/2023 07:48:40 1.2 0.0-2.0 (%) Final Immature Granulocyte, Percent 01/14/2023 07:48:40 0.2 0.0-2.0 (%) Final Absolute Segs 01/14/2023 07:48:40 2.05 1.80-7.70 (K/uL) Final Lymphs, absolute 01/14/2023 07:48:40 1.07 1.00-4.80 (K/ul) Final Monos, Abs 01/14/2023 07:48:40 0.64 0.00-1.10 (K/uL) Final Eos, Abs 01/14/2023 07:48:40 0.25 0.00-0.70 (K/uL) Final Basos, Abs 01/14/2023 07:48:40 0.05 0.00-0.20 (K/uL) Final Immature Granulocytes, Number 01/14/2023 07:48:40 0.01 0.00-0.20 (K/uL) Final Performing Location LABORATORY [facility] [place] - [address] [facility] [address]
--- OUTSIDE RECORDS SUMMARY | 2023-04-04 11:13 | External Medical Summary ---
Author Name Unknown Address Unknown Organization K01:LABORATORY [facility] [place] - [address] [place] [address] [place] [address] Laboratory Report Ordering Provider Test Date Status VALERIEALEX 01/14/2023 07:48:40 Final Normal: <150 mg/ g creatinine
High: 150-500 mg/g creatinine
Very High: >500 mg/g creatinine
Nephrotic: >3000 mg/g creatinine Observation Date Value Abnormality Reference (Units ) Status Protein/Creatinine [Ratio] in Urine 01/14/2023 07:48:40 77 <150 (mg/g ) Final Protein, Urine 01/14/2023 07:48:40 12 (mg/dL) Final Creatinine, Urine 01/14/2023 07:48:40 156 (mg/dL) Final Performing Location LABORATORY [facility] [place] - [address] [place] [address]
--- OUTSIDE RECORDS SUMMARY | 2023-04-04 11:13 | External Medical Summary ---
Author Name Unknown Address Unknown Organization K01:[facility] [address] [place] [address] Laboratory Report Ordering Provider Test Date Status ALEX PADILLA 12/17/2022 07:46:28 Final Observation Date Value Abnormality Reference (Units ) Status LDL, (direct) 12/17/2022 07:46:28 72 <=129 (mg/dL) Final LDL Cholesterol Reference Ra nges (mg/dL):
<70 Target level for high risk ASCVD patient
<100 Optimal for general population
100-129 Near optimal for general population
130-159 Borderline high
160-189 High
>=190 Very high Performing Location LABORATORY [facility] - [address] [place] [address]
--- OUTSIDE RECORDS SUMMARY | 2023-04-04 11:13 | External Medical Summary ---
Author Name Unknown Address Unknown Organization : Laboratory Report Ordering Provider Test Date Status ALEX PADILLA 10/28/2022 07:32:55 Final Observation Date Value Abnormality Reference (Units ) Status Source 10/28/2022 07:32:55 Whole Blood Final BK virus DNA 10/28/2022 07:32:55 Not Detected (copies/mL) Final BK virus DNA [Log #/volume] (viral load) in Specimen by GLADYS with probe detection 10/28/2022 07:32:55 Not Detected (Log cps/mL) Final Reference Range: Not Detecte d
This test was developed and its analytical performance
characteristics have been determined by [employer]
[place], [place]. It has
not been cleared or approved by the U.S. Food and Drug
Administration. This assay has been validated pursuant
to the CLIA regulations and is used for clinical
purposes.

Test Performed at:
[facility] [place]
[address] [facility]
[place], [place] [address]
Félix Longoria M.D., Ph.D.,Director of Laboratories Performing Location
--- OUTSIDE RECORDS SUMMARY | 2023-04-04 11:13 | External Medical Summary ---
Author Name Unknown Address Unknown Organization K01:[facility] [place] [address] [place] [address] Laboratory Report Ordering Provider Test Date Status ALEX PADILLA 12/17/2022 07:46:28 Final Normal: <150 mg/ g creatinine
High: 150-500 mg/g creatinine
Very High: >500 mg/g creatinine
Nephrotic: >3000 mg/g creatinine Observation Date Value Abnormality Reference (Units ) Status Protein/Creatinine [Ratio] in Urine 12/17/2022 07:46:28 78 <150 (mg/g ) Final Protein, Urine 12/17/2022 07:46:28 8 (mg/dL) Final Creatinine, Urine 12/17/2022 07:46:28 103 (mg/dL) Final Performing Location [facility] [place] [address] [place] [address]
--- OUTSIDE RECORDS SUMMARY | 2023-04-04 11:13 | External Medical Summary | Summary of Care ---
Author Name Unknown Organization [facility] Address [address] [facility] [place] [address] Phone [phone] Care Team Providers Care Oscillograph Technician Name Role Phone Unavailable Primary Care Provider Unavailabl e Reason for Visit * Reason Comments Outpatient Testing Encounter Details Date Type Department Care Team Description 10/28/2022 Laboratory Laboratory [address] [place] [id number] [place] [address] Need for prophylactic measure; Kidney replaced by transplant; Need for prophylactic immunotherapy Allergies Active Allergy Reactions Severity Noted Date Comments Sulfamethoxazole-Trimethoprim Rash 2022 documented as of this encounter (statuses as of 10/28/2022) Medications Medication Sig Dispensed Refills Start Date [...] as of this encounter (statuses as of 10/28/2022) Active Problems Problem Noted Date DADA (acute [...] as of this encounter (statuses as of 10/28/2022) Resolved Problems Problem Noted Date Resolved Date Closed fracture of navicular bone of wrist 05/0403/26/2017 documented as of this encounter (statuses as of 10/28/2022) Immunizations Name Administration Dates Next Due COVID-19 [...] Encounters Date Type Specialty Care Team Description 10/29/2022 Office Visit Transplant Clinic Jimenez Roberson, SILVINA [address] [place] [address] 12/22/2022 Office Visit Cardiology Octavia Givens CRNP [address] [place] [address] 03/11/2023 Pharmacy Gastroenterology Seth, Pharmacist Hepatology [address] [place], [place] [id number] Pending Results Name Type Priority Associated Diagnoses Date /Time BK VIRUS DNA, QUANTITATIVE REAL-TIME PCR, BLOOD Lab Routine Need for prophylactic measure Kidney replaced by transplant 10/28/2022 7:32 AM EDT CBC WITH WBC DIFFERENTIAL Lab STAT Need for prophylactic immunotherapy Kidney replaced by transplant 10/28/2022 7:32 AM EDT BASIC METABOLIC PANEL Lab STAT Need for prophylactic immunotherapy Kidney replaced by transplant 10/28/2022 7:32 AM EDT TACROLIMUS LEVEL Lab STAT Need for prophylactic immunotherapy Kidney replaced by transplant 10/28/2022 7:32 AM EDT PROTEIN/ CREATININE RATIO, URINE Lab STAT Need for prophylactic immunotherapy Kidney replaced by transplant 10/28/2022 7:32 AM EDT CYTOMEGALOVIRUS DNA, QUANTITATIVE REAL-TIME PCR Lab STAT Kidney replaced by transplant Need for prophylactic immunotherapy 10/28/2022 7:32 AM EDT CBC Lab STAT Need for prophylactic immunotherapy Kidney replaced by transplant 10/28/2022 7:32 AM EDT DIFFERENTIAL, AUTOMATED Lab STAT Need for prophylactic immunotherapy Kidney replaced by transplant 10/28/2022 7:32 AM EDT Health Maintenance Due Date Last Done Comments Pneumococcal Vaccine: Pediatrics (0 to 5 Years) and At-Risk Patients (6 to 64 Years) (1 - PCV) 05/18/1997 Depression Screening, Annual for Pts 12 and Over 06/14/2021 06/14/2020 COVID-19 Vaccine (3 - Pfizer risk series) 11/26/2021 10/29/2021, 10/08/2021 Influenza Vaccine (FLU shot) (#1) 2022 GFR 04/09/2023 10/07/2022, 09/01, 09/26/2022, Additional history exists Albumin/Creatinine Ratio 08/07/2023 023, [...] Agents on File Name Relationship Healthcare Agent [facility] Communication Juliann Garner Spouse Health Care Repr esentative (appointed verbally by patient or by statute hierarchy)
--- OUTSIDE RECORDS SUMMARY | 2023-04-04 11:13 | External Medical Summary ---
Author Name Unknown Address Unknown Organization [id number]:LABORATORY [facility] [place] - [address] [place] [address] Laboratory Report Ordering Provider Test Date Status ALEX PADILLA 12/17/2022 07:46:28 Final Observation Date Value Abnormality Reference (Units ) Status Triglyceride 12/17/2022 07:46:28 151 <=174 ( mg/dL) Final Triglyceride Reference Range s (mg/dL):
<150 Acceptable
150-174 Borderline high
175-499 High
>=500 Very high Cholesterol 12/17/2022 07:46:28 142 <200 (mg /dL) Final Total Cholesterol Reference Ranges (mg/dL):
<200 Desirable
200-239 Borderline high
>=240 High HDL 12/17/2022 07:46:28 56 >39 (mg/dL ) Final HDL Cholesterol Reference Ra nges (mg/dL):
>=60 High (Desirable)
<50 Low (Undesirable) For Females
<40 Low (Undesirable) For Males NON-HDL CHOLESTEROL 12/17/2022 07:46:28 86 <=159 (mg/dL) Final Non-HDL Cholesterol Referenc e Range (mg/dL):
<100 Target level for high risk ASCVD patient
<130 Optimal for general population
130-159 Near optimal for general population
160-189 Borderline High
190-219 High
>=220 Very High Performing Location LABORATORY [facility] [place] - [address] [place] [address]
--- OUTSIDE RECORDS SUMMARY | 2023-04-04 11:13 | External Medical Summary ---
Author Name Unknown Address Unknown Organization [id number]:[place] [place] [address] [place] [address] Laboratory Report Ordering Provider Test Date Status ALEX PADILLA 10/28/2022 07:32:55 Final Observation Date Value Abnormality Reference (Units ) Status SYNC LEUKOCYTES IN BLOOD BY AUTOMATED COUNT 10/28/2022 07:32:55 5.64 4.00-10.80 (K/uL) Final Segs 10/28/2022 07:32:55 65.5 40.0-75.0 (%) Final Lymphs % 10/28/2022 07:32:55 16.0 Below low normal 18.0-42.0 (%) Final Monos 10/28/2022 07:32:55 11.7 Above high normal 1.0-11.0 (%) Final Eosinophils 10/28/2022 07:32:55 5.5 0.0-6.0 (%) Final Basos 10/28/2022 07:32:55 0.9 0.0-2.0 (%) Final Immature Granulocyte, Percent 10/28/2022 07:32:55 0.4 0.0-2.0 (%) Final Absolute Segs 10/28/2022 07:32:55 3.70 1.80-7.70 (K/uL) Final Lymphs, absolute 10/28/2022 07:32:55 0.90 Below low normal 1.00-4.80 (K/ul) Final Monos, Abs 10/28/2022 07:32:55 0.66 0.00-1.10 (K/uL) Final Eos, Abs 10/28/2022 07:32:55 0.31 0.00-0.70 (K/uL) Final Basos, Abs 10/28/2022 07:32:55 0.05 0.00-0.20 (K/uL) Final Immature Granulocytes, Number 10/28/2022 07:32:55 0.02 0.00-0.20 (K/uL) Final Performing Location [facility] [place] [address] [place], [place] [address]
--- OUTSIDE RECORDS SUMMARY | 2023-04-04 11:13 | External Medical Summary ---
Author Name Unknown Address Unknown Organization K01:LABORATORY [facility] - [address] [facility] [place]. [facility] [address] Laboratory Report Ordering Provider Test Date Status ALEX PADILLA 12/17/2022 07:46:28 Final Test performed by [facility] on [employer]. Therapeutic ranges vary with type of transplant, time post-transplant, clinical protocols, and testing methodology. Results should be interpreted with clinical presentation and any signs rejection/toxicity. Observation Date Value Abnormality Reference (Units ) Status Tacrolimus (FK506) 12/17/2022 07:46:28 8.0 4 .0-12.0 (ng/mL) Final Performing Location LABORATORY [facility] - [address] [facility] [address]
--- OUTSIDE RECORDS SUMMARY | 2023-04-04 11:14 | External Medical Summary ---
Author Name Unknown Address Unknown Organization K01:LABORATORY [facility] [place] - [address] [facility] [place] [facility] [address] Laboratory Report Ordering Provider Test Date Status ALEX PADILLA 10/07/2022 07:45:43 Final Test performed by Immuno[facility] on [employer]. Therapeutic ranges vary with type of transplant, time post-transplant, clinical protocols, and testing methodology. Results should be interpreted with clinical presentation and any signs rejection/toxicity. Observation Date Value Abnormality Reference (Units ) Status Tacrolimus (FK506) 10/07/2022 07:45:43 6.9 4 .0-12.0 (ng/mL) Final Performing Location [facility] [place] [facility] [address] [facility] [address]
--- OUTSIDE RECORDS SUMMARY | 2023-04-04 11:14 | External Medical Summary ---
Author Name Unknown Address Unknown Organization : Laboratory Report Ordering Provider Test Date Status ALEX PADILLA 10/07/2022 07:45:43 Final Observation Date Value Abnormality Reference (Units ) Status REFERENCE LAB SCANNED REPORT 10/07/2022 07:45:43 RESULT SCAN Final Performing Location
--- OUTSIDE RECORDS SUMMARY | 2023-04-04 11:14 | External Medical Summary ---
Author Name Unknown Address Unknown Organization K01:LABORATORY [facility] [place] - [address] [place] [address] Laboratory Report Ordering Provider Test Date Status ALEX PADILLA 10/28/2022 07:32:55 Final Normal: <150 mg/ g creatinine
High: 150-500 mg/g creatinine
Very High: >500 mg/g creatinine
Nephrotic: >3000 mg/g creatinine Observation Date Value Abnormality Reference (Units ) Status Protein/Creatinine [Ratio] in Urine 10/28/2022 07:32:55 59 <150 (mg/g ) Final Protein, Urine 10/28/2022 07:32:55 7 (mg/dL) Final Creatinine, Urine 10/28/2022 07:32:55 119 (mg/dL) Final Performing Location LABORATORY [facility] [place] - [address] [place] [address]
--- OUTSIDE RECORDS SUMMARY | 2023-04-04 11:14 | External Medical Summary ---
Author Name Unknown Address Unknown Organization K01:LABORATORY [facility] [place] - [address] [facility] [address] [facility] [address] Laboratory Report Ordering Provider Test Date Status ALEX PADILLA 10/07/2022 07:45:43 Final Observation Date Value Abnormality Reference (Units ) Status WBC, Total 10/07/2022 07:45:43 3.00 Below low normal 4.00-10.80 (K/uL) Final RBC 10/07/2022 07:45:43 3.31 4.50-5.25 (M/uL) Final Hemoglobin 10/07/2022 07:45:43 9.9 Below low normal 14.0-16.8 (g/dL) Final HCT 10/07/2022 07:45:43 32.2 Below low normal 40.0-48.4 (%) Final MCV 10/07/2022 07:45:43 97.3 82.0-99.5 (fL) Final MCH 10/07/2022 07:45:43 29.9 27.0-34.0 (pg) Final MCHC 10/07/2022 07:45:43 30.7 32.0-36.0 (g/dL) Final RDW 10/07/2022 07:45:43 14.2 11.5-15.5 (%) Final Platelets 10/07/2022 07:45:43 346 140-400 (K/uL) Final MPV 10/07/2022 07:45:43 10.1 6.6-11.1 (fL) Final Nucleated erythrocytes/100 leukocytes [Ratio] in Blood by Automated count 10/07/2022 07:45:43 0 <=0 (/100 WBCs) Final Performing Location LABORATORY [facility] [place] - [address] [place] [address]
--- OUTSIDE RECORDS SUMMARY | 2023-04-04 11:14 | External Medical Summary ---
Author Name Unknown Address Unknown Organization : Laboratory Report Ordering Provider Test Date Status ALEX PADILLA 10/07/2022 07:45:43 Final Observation Date Value Abnormality Reference (Units ) Status Source 10/07/2022 07:45:43 Whole Blood Final Cytomegalovirus DNA [Units/volume] (viral load) in Specimen by GLADYS with probe detection 10/07/2022 07:45:43 Not Detected (IU/mL) Final Cytomegalovirus DNA [Log #/volume] (viral load) in Specimen by GLADYS with probe detection 10/07/2022 07:45:43 Not Detected (log IU/mL) Final REFERENCE RANGE: NOT DETECTE D
This test was developed and its analytical performance
characteristics have been determined by [employer] [place], [place]. It has
not been cleared or approved by the U.S. Food and Drug
Administration. This assay has been validated pursuant
to the CLIA regulations and is used for clinical
purposes.
For additional information, please refer to
http://education.[employer]/faq/CMVandEBVPCR
(This link is being provided for informational/
educational purposes only.)

Test Performed at:
[facility]
[address] [facility]
[place] [address]
Félix Longoria M.D., Ph.D.,Director of Laboratories Performing Location
--- OUTSIDE RECORDS SUMMARY | 2023-04-04 11:14 | External Medical Summary | Summary of Care ---
Author Name Unknown Organization [facility] Address [address] [place] [facility] [place] [address] Phone [phone] Care Team Providers Care Dust Mop Maker Name Role Phone Unavailable Primary Care Provider Unavailabl e Reason for Visit * Reason Comments Outpatient Testing Encounter Details Date Type Department Care Team Description 10/07/2022 Laboratory Laboratory [address] [place] [phone] [place] [address] Need for prophylactic immunotherapy; Kidney replaced by transplant Allergies Active Allergy Reactions Severity Noted Date Comments Sulfamethoxazole-Trimethoprim Rash 2022 documented as of this encounter (statuses as of 10/07/2022) Medications Medication Sig Dispensed Refills Start Date End Date Status Betamethasone Dipropionate 0.05 % External Cream (Diprosone)Indicatio ns:Rash and nonspecific skin eruption Apply to rash on legs twice daily for two weeks and then on weekends only 45 g 0 03/12/2022 Active valGANciclovir HCl 450 MG Oral Tablet (Valcyte)Indications :Kidney replaced by transplant,Need for prophylactic immunotherapy Take 1 Tablet by mouth in the morning. 30 Tablet 5 03/24/2022 Active amLODIPine Besylate 10 MG Oral Tablet (Norvasc) Take 1 Tablet by mouth in the morning. 90 Tablet 3 04/22/2022 Active Acetaminophen 325 MG Oral Tablet (Tylenol) TAKE 3 TABLETS BY MOUTH EVERY 6 HOURS NEEDED FOR MODERATE PAIN. 30 Tablet 0 03/06/2022 03/06/2023 Active Clopidogrel Bisulfate 75 MG Oral Tablet (Plavix)Indications: Kidney replaced by transplant Take 1 Tablet by mouth in the morning. 90 Tablet 3 07/14/2022 Active Dapsone 100 MG Oral TabletIndications:Ne ed for prophylactic measure Take 1 Tablet by mouth in the morning. 30 Tablet 4 08/25/2022 Active Tacrolimus 1 MG Oral Capsule (Prograf)Indications :Need for prophylactic immunotherapy,Kidney replaced by transplant Take 4 Capsules by mouth every morning AND 3 Capsules every evening. 240 Capsule 5 09/04/2022 Active Omeprazole 20 MG Oral Capsule Delayed Release (PriLOSEC)Indication s:Kidney replaced by transplant,Need for prophylactic immunotherapy Take 1 Capsule by mouth in the morning. 30 Capsule 5 09/22/2022 Active Aspirin 81 MG Oral Tablet Delayed ReleaseIndications:K idney replaced by transplant,Need for prophylactic immunotherapy Take 1 Tablet by mouth in the morning. 30 Tablet 5 09/22/2022 Active Azithromycin 250 MG Oral Tablet (Zithromax) Take 1 tablet by mouth each morning for 5 days 5 Tablet 0 09/26/2022 Active documented as of this encounter (statuses as of 10/07/2022) Active Problems Problem Noted Date DADA (acute [...] as of this encounter (statuses as of 10/07/2022) Resolved Problems Problem Noted Date Resolved Date Closed fracture of navicular bone of wrist 05/0403/26/2017 documented as of this encounter (statuses as of 10/07/2022) Immunizations Name Administration Dates Next Due COVID-19 mRNA, LNP-s, No Pre serve, 2-Dose Series ([employer]) 10/29/2021 COVID-19, LNP-s, No Preserve , Yvon-sucrose, [...] Encounters Date Type Specialty Care Team Description 10/24/2022 Office Visit Cardiology Christian Yang, Salvador Arzate, 10/29/2022 Office Visit Transplant Clinic Jimenez Roberson, SILVINA [address] [place] [address] 03/11/2023 Pharmacy Gastroenterology Baker, Pharmacist Hepatology [address] [place] [address] Pending Results Name Type Priority Associated Diagnoses Date /Time CBC WITH WBC DIFFERENTIAL Lab STAT Need for prophylactic immunotherapy Kidney replaced by transplant 10/07/2022 7:45 AM EDT BASIC METABOLIC PANEL Lab STAT Need for prophylactic immunotherapy Kidney replaced by transplant 10/07/2022 7:45 AM EDT TACROLIMUS LEVEL Lab STAT Need for prophylactic immunotherapy Kidney replaced by transplant 10/07/2022 7:45 AM EDT PROTEIN/ CREATININE RATIO, URINE Lab STAT Need for prophylactic immunotherapy Kidney replaced by transplant 10/07/2022 7:45 AM EDT CYTOMEGALOVIRUS DNA, QUANTITATIVE REAL-TIME PCR Lab STAT Kidney replaced by transplant Need for prophylactic immunotherapy 10/07/2022 7:45 AM EDT CBC Lab STAT Need for prophylactic immunotherapy Kidney replaced by transplant 10/07/2022 7:45 AM EDT DIFFERENTIAL, AUTOMATED Lab STAT Need for prophylactic immunotherapy Kidney replaced by transplant 10/07/2022 7:45 AM EDT Health Maintenance Due Date Last Done Comments Pneumococcal Vaccine: Pediatrics (0 to 5 Years) and At-Risk Patients (6 to 64 Years) (1 - PCV) 05/18/1997 Depression Screening, Annual for Pts 12 and Over 06/14/2021 06/14/2020 COVID-19 Vaccine (3 - Pfizer risk series) 11/26/2021 10/29/2021, 10/08/2021 Influenza Vaccine (FLU shot) (#1) 2022 GFR 04/01/2023 09/29/2022, 08/31, 09/25/2022, Additional history exists Albumin/Creatinine Ratio 08/07/2023 023, [...] replaced by transplant documented in this encounter Additional Health Concerns Infection Onset Date Last Indicated Resolved Time Enterovirus (resp)/Rhinovirus 09/26/2022 09/26/2022 documented as of this encounter Advance Directives Latest [...] Agents on File Name Relationship Healthcare [facility] Communication Juliann Garner Spouse Health Care Repr esentative (appointed verbally by patient or by statute hierarchy)
--- OUTSIDE RECORDS SUMMARY | 2023-04-04 11:14 | External Medical Summary ---
Author Name Unknown Address Unknown Organization K01:LABORATORY [facility] [place] - [address] [place] [address] [place] [address] Laboratory Report Ordering Provider Test Date Status ALEX PADILLA 10/07/2022 07:45:43 Final Normal: <150 mg/ g creatinine
High: 150-500 mg/g creatinine
Very High: >500 mg/g creatinine
Nephrotic: >3000 mg/g creatinine Observation Date Value Abnormality Reference (Units ) Status Protein/Creatinine [Ratio] in Urine 10/07/2022 07:45:43 67 <150 (mg/g ) Final Protein, Urine 10/07/2022 07:45:43 5 (mg/dL) Final Creatinine, Urine 10/07/2022 07:45:43 75 (mg/dL) Final Performing Location LABORATORY [facility] [place] - [address] [place] [address]
--- OUTSIDE RECORDS SUMMARY | 2023-04-04 11:14 | External Medical Summary ---
Author Name Unknown Address Unknown Organization : Laboratory Report Ordering Provider Test Date Status ALEX PADILLA 10/28/2022 07:32:55 Final Observation Date Value Abnormality Reference (Units ) Status Source 10/28/2022 07:32:55 Whole Blood Final Cytomegalovirus DNA [Units/volume] (viral load) in Specimen by GLADYS with probe detection 10/28/2022 07:32:55 Not Detected (IU/mL) Final Cytomegalovirus DNA [Log #/volume] (viral load) in Specimen by GLADYS with probe detection 10/28/2022 07:32:55 Not Detected (log IU/mL) Final REFERENCE RANGE: NOT DETECTE D
This test was developed and its analytical performance
characteristics have been determined by [employer] [facility]
[employer] [place], [place]. It has
not been cleared or approved by the U.S. Food and Drug
Administration. This assay has been validated pursuant
to the CLIA regulations and is used for clinical
purposes.
For additional information, please refer to
http://education.[employer]com/faq/CMVandEBVPCR
(This link is being provided for informational/
educational purposes only.)

Test Performed at:
[facility]
[address] [facility]
[place] [address]
Félix Longoria M.D., Ph.D.,Director of Laboratories Performing Location
--- OUTSIDE RECORDS SUMMARY | 2023-04-04 11:14 | External Medical Summary | Summary of Care ---
Author Name Unknown Organization [facility] Address [address] [place] [address] Phone [phone] Care Team Providers Care Television Program Director Name Role Phone Unavailable Primary Care Provider Unavailabl e Reason for Visit * Reason Comments case management CKD CM goal review/c lose Encounter Details Date Type Department Care Team Description 10/14/2022 Corporate Manager Care Coordination [address], [place] [id number] Delores Lopez RN Kidney replaced by transplant* Allergies Active Allergy Reactions Severity Noted Date Comments Sulfamethoxazole-Trimethoprim Rash 2022 documented as of this encounter (statuses as of 10/14/2022) Medications Medication Sig Dispensed Refills Start Date [...] as of this encounter (statuses as of 10/14/2022) Active Problems Problem Noted Date DADA (acute [...] as of this encounter (statuses as of 10/14/2022) Resolved Problems Problem Noted Date Resolved Date Closed fracture of navicular bone of wrist 05/0403/26/2017 documented as of this encounter (statuses as of 10/14/2022) Immunizations Name Administration Dates Next Due COVID-19 [...] as of this encounter Progress Notes * Delores Lopez RN - 10/14/2022 9:56 AM EDT Corporate Manager Progress Note: Date: 10/14/22 Assigned Patient Tier: 3 Connected with patient via phone. Verified patient name/. Advised patient that call is being recorded for quality and training purposes. Assessment: Pt. noted the following: CKD CM goal review/close Spoke with pt, he had a DADA last month, had been unable to reach pt. He has been working with transplant team. He has no concerns at this time. Labs are improving. He has finished his antibiotics. Medications reconciled. Pt is no longer taking valcyte. He is taking Prograf and Cellcept. Has labs done per transplant team. Pt reports that he is to contact transplant team for the following red flags. Fever, weakness, dizziness. Discussed checking BP weekly to ensure meeting goal of <130/80. He verbalizes understanding. Encouraged fluids. Pt reports he is now only working 3days per week, staying home with his kids the other days so his can work. Plan; pt received transplant in March 2022, doing well at this time. Most recent labs creat/GFR 1.8/51. Will close at this time. Goals and needs met. . Did you receive an alert for an annual wellness visit? No Is this call for a hospital, halfway or rehab facility discharge to home? No Medication Reconciliation: Medication Reconciliation completed: yes Review of Current goals: Discussed the following patient-centered CM goals with the patient during this discussion: -ESRD: Promote minimal renal risk for patient -Status: Completed pt taking anti-rejection meds as ordered, labs have improved since DADA. -HYPERTENSION: Achieve successful management/treatment of HTN -Status: Completed pt encouraged to continue to monitor weekly to ensure he remains at goal and if not report to provider. -Nutrition: Patient will have their nutritional needs met -Status: Completed pt adherent with diet, encouraged to drink fluids. COPD Patient: No CHF Patient: NO CM Plan: Reviewed 3 Red Flags with patient. Advised to call CM with any of the following: Red Flag 1: fever,Red Flag 2: weakness, or Red Flag 3: dizziness and close at this time as goals and needs met and pthas had transplant now since March 03, 2022 Remote Patient Monitoring: At this time, RPM not offered/considered for patient due to has cuff at home, encouraged to use weekly. Plan for Future Contacts: Plan to follow up none, close at this time, pt to f/u with transplant team as indicated to check progress on the following goals/needs goals and needs met. Planned contacts from the following parties will occur this week: N/A as additional contacts per workflow. Advancement/Closure Plan: Close patient from case management as all goals and needs met. Patient provided CM contact information and encouraged to call with any changes in condition. SNP Member? No PCP Notified of enrollment in CM/HM program: Yes Is Provider in agreement with POC? Yes Exacerbation Plan Reviewed S/S of uremia and fluid retention. Reviewed diet restrictions, including no added salt, phosphorus and potassium. Encouraged to call office if symptoms occur. Follow up: N/A, patient verbalizes understanding to call transplant team if questions or concerns arise. Attempted to contact patient for CKD CM. Outcome: 6 months post SAXOPHONE ASSEMBLER. Case Closed. Was patient previously enrolled? Yes Was care team updated to reflect end date of today? Yes Delores Lopez RN Kidney Transitions Specialist Nephrology Case Management documented in this encounter Plan of Treatment Upcoming Encounters Date Type Specialty Care Team Description 10/29/2022 Office Visit Transplant Clinic Jimenez Roberson, SILVINA [address] [place] [address] 12/22/2022 Office Visit Cardiology Octavia Givens CRNP [address] [place] [address] 03/11/2023 Pharmacy Gastroenterology Amelia, Pharmacist Hepatology [address] [place] [address] Health Maintenance Due Date Last Done Comments [...] Diagnoses Diagnosis Kidney replaced by transplant- Primary documented in this encounter Additional Health Concerns [...]
--- OUTSIDE RECORDS SUMMARY | 2023-04-04 11:14 | External Medical Summary ---
Author Name Unknown Address Unknown Organization [id number]:LABORATORY [facility] [place] - [address] [place] [address] Laboratory Report Ordering Provider Test Date Status ALEX PADILLA 10/07/2022 07:45:43 Final Observation Date Value Abnormality Reference (Units ) Status BUN 10/07/2022 07:45:43 15 6-20 (mg/dL) Final Creatinine 10/07/2022 07:45:43 1.8 Above high normal 0.6-1.2 (mg/dL) Final Glomerular filtration rate/1.73 sq M.predicted [Volume Rate/Area] in Serum, Plasma or Blood by Creatinine-based formula (CKD-EPI) 10/07/2022 07:45:43 51 Below low normal >=60 (mL/min) Final eGFR is calculated based on the CKD-EPI 2020 equation SODIUM 10/07/2022 07:45:43 139 135-146 (m mol/L) Final Potassium 10/07/2022 07:45:43 5.2 Above high normal 3. 5-5.1 (mmol/L) Final Cl 10/07/2022 07:45:43 108 Above high normal 98 -107 (mmol/L) Final CO2 10/07/2022 07:45:43 21 Below low normal 22- 32 (mmol/L) Final Anion gap 10/07/2022 07:45:43 10 7-15 (mmol /L) Final Glucose 10/07/2022 07:45:43 114 70-120 (mg /dL) Final Calcium 10/07/2022 07:45:43 9.3 8.4-10.2 ( mg/dL) Final Performing Location LABORATORY [facility] [place] - [address] [place] [address]
--- OUTSIDE RECORDS SUMMARY | 2023-04-04 11:14 | External Medical Summary ---
Author Name Unknown Address Unknown Organization [id number]:[place] [facility] [place] [address] [place] [id number] Laboratory Report Ordering Provider Test Date Status ALEX PADILLA 10/07/2022 07:45:43 Final Observation Date Value Abnormality Reference (Units ) Status SYNC LEUKOCYTES IN BLOOD BY AUTOMATED COUNT 10/07/2022 07:45:43 3.00 Below low normal 4.00-10.80 (K/uL) Final Segs 10/07/2022 07:45:43 57.1 40.0-75.0 (%) Final Lymphs % 10/07/2022 07:45:43 25.0 18.0-42.0 (%) Final Monos 10/07/2022 07:45:43 8.3 1.0-11.0 (%) Final Eosinophils 10/07/2022 07:45:43 5.0 0.0-6.0 (%) Final Basos 10/07/2022 07:45:43 2.3 Above high normal 0.0-2.0 (%) Final Immature Granulocyte, Percent 10/07/2022 07:45:43 2.3 Above high normal 0.0-2.0 (%) Final Absolute Segs 10/07/2022 07:45:43 1.71 Below low normal 1.80-7.70 (K/uL) Final Lymphs, absolute 10/07/2022 07:45:43 0.75 Below low normal 1.00-4.80 (K/ul) Final Monos, Abs 10/07/2022 07:45:43 0.25 0.00-1.10 (K/uL) Final Eos, Abs 10/07/2022 07:45:43 0.15 0.00-0.70 (K/uL) Final Basos, Abs 10/07/2022 07:45:43 0.07 0.00-0.20 (K/uL) Final Immature Granulocytes, Number 10/07/2022 07:45:43 0.07 0.00-0.20 (K/uL) Final Performing Location [place] [facility] [place] [facility] [address] [facility] [address]
--- OUTSIDE RECORDS SUMMARY | 2023-04-04 11:14 | External Medical Summary ---
Author Name Unknown Address Unknown Organization [id number]:[place] [facility] [place] [address] [place] [address] Laboratory Report Ordering Provider Test Date Status ALEX PADILLA 10/28/2022 07:32:55 Final Observation Date Value Abnormality Reference (Units ) Status BUN 10/28/2022 07:32:55 19 6-20 (mg/dL) Final Creatinine 10/28/2022 07:32:55 2.0 Above high normal 0.6-1.2 (mg/dL) Final Glomerular filtration rate/1.73 sq M.predicted [Volume Rate/Area] in Serum, Plasma or Blood by Creatinine-based formula (CKD-EPI) 10/28/2022 07:32:55 45 Below low normal >=60 (mL/min) Final eGFR is calculated based on the CKD-EPI 2020 equation SODIUM 10/28/2022 07:32:55 142 135-146 (m mol/L) Final Potassium 10/28/2022 07:32:55 5.2 Above high normal 3. 5-5.1 (mmol/L) Final Cl 10/28/2022 07:32:55 108 Above high normal 98 -107 (mmol/L) Final CO2 10/28/2022 07:32:55 23 22-32 (mmo l/L) Final Anion gap 10/28/2022 07:32:55 11 7-15 (mmol /L) Final Glucose 10/28/2022 07:32:55 97 70-120 (mg /dL) Final Calcium 10/28/2022 07:32:55 9.6 8.4-10.2 ( mg/dL) Final Performing Location [place] [facility] [place] [address] [place] [address]
--- OUTSIDE RECORDS SUMMARY | 2023-04-04 11:14 | External Medical Summary ---
Author Name Unknown Address Unknown Organization [id number]:[place] [facility] [place] [address] [address] Laboratory Report Ordering Provider Test Date Status ALEX PADILLA 10/28/2022 07:32:55 Final Observation Date Value Abnormality Reference (Units ) Status WBC, Total 10/28/2022 07:32:55 5.64 4.00-10.80 (K/uL) Final RBC 10/28/2022 07:32:55 3.61 4.50-5.25 (M/uL) Final Hemoglobin 10/28/2022 07:32:55 10.8 Below low normal 14.0-16.8 (g/dL) Final HCT 10/28/2022 07:32:55 35.7 Below low normal 40.0-48.4 (%) Final MCV 10/28/2022 07:32:55 98.9 82.0-99.5 (fL) Final MCH 10/28/2022 07:32:55 29.9 27.0-34.0 (pg) Final MCHC 10/28/2022 07:32:55 30.3 32.0-36.0 (g/dL) Final RDW 10/28/2022 07:32:55 14.1 11.5-15.5 (%) Final Platelets 10/28/2022 07:32:55 225 140-400 (K/uL) Final MPV 10/28/2022 07:32:55 10.7 6.6-11.1 (fL) Final Nucleated erythrocytes/100 leukocytes [Ratio] in Blood by Automated count 10/28/2022 07:32:55 0 <=0 (/100 WBCs) Final Performing Location LAB[facility]ATORY [facility] [place] - [address] [place] [address]
[2023-04-04] MEDS: SODIUM CHLORIDE 0.9% 1,000 ML IV SCH ×2 (11:23→14:04)
[2023-04-04] MEDS: ACETAMINOPHEN 1,000 MG/100 ML VIAL IV STA (11:23)
--- NOTE | 2023-04-04 11:37 | Emergency Department Note ---
History of Present Illness General Chief Complaint: Cardiac Assessment Stated Complaint: CHEST PAIN, SHORTNESS OF BREATH Time Seen by Provider: 04/04/23 11:14 History of Present Illness Provider Complaint: + fever, + cough and + nasal congestion Onset (ago): 5 day(s) Duration: + progressively worsening Maximum Pain Intensity: 8 Relieved By: + nothing Exacerbated By: + nothing Able to tolerate fluids by mouth: Yes Associated symptoms: + fever, + chills, + myalgias, + headache, + nasal congestion, + cough, + chest pain, + shortness of breath, + nausea, + vomiting and + diarrhea Home Medications Medication Instructions Recorded Confirmed Type amlodipine 5 mg tablet (Norvasc) 10 mg PO QAM 07/27/20 04/04/23 History acetaminophen 500 mg tablet 1,000 mg PO DIRECTED PRN Pain 07/05/21 04/04/23 History (Tylenol Extra Strength) aspirin 81 mg tablet,delayed 81 mg PO QAM 04/04/23 04/04/23 History release clopidogrel 75 mg tablet 75 mg PO QAM 04/04/23 04/04/23 History mycophenolate mofetil 250 mg 250 mg PO UD 04/04/23 04/04/23 History capsule omeprazole 20 mg capsule,delayed 20 mg PO QAM 04/04/23 04/04/23 History release tacrolimus 1 mg capsule, 1 mg PO UD 04/04/23 04/04/23 History immediate-release Allergies Allergy/AdvReac Type Severity Reaction Status Date / Time banana Allergy Mild Heartburn Unverified 04/04/23 13:40 Past Med/Surg History Medical History Nonadherence to medication Hypertensive urgency History of COVID-19 07/23/21; home test, then postive pcr @ [facility]- no symptoms - no hospitalization- no current issues Nephrolithiasis HTN (hypertension) Chronic kidney disease stage 4 since at least 2018 > follows with Mai Myles- last visit 08/29/21 Surgical History Kidney transplant recipient Status post biopsy of kidney [place] teeth extracted Family History Father Kidney stone Social History Smoking Status: Current some day smoker Tobacco Type: Cigarettes Cigarettes Per Day: 6 cigs per day; Second Hand Exposure: No; Do You Dip or Chew Tobacco: No; Hx Alcohol Use: No Hx Substance Use: Yes (USES DAILY) Substance Use Type Other:: marijuana 2-3 times per day Preferred Language: Indonesian Communication Ability: Effective Driller'S Assistant Required: No Beliefs That Will Affect Care: None Current Living Situation: Spouse Feels Safe at Home: Yes Assistive Devices: None Physical Exam 2 Vital Signs: Vital Signs - 24 hr 04/04/23 11:09 04/04/23 11:25 04/04/23 11:30 Temperature 37.9 C H Temperature Source Temporal Artery Sc an Pulse Rate 101 H 99 H 93 H Pulse Rate from Sp O2 Sensor 94 H Respiratory Rate 20 32 H 34 H Respiratory Effort / Characteristics Respiratory Depth Blood Pressure 141/83 H 121/74 126/69 Blood Pressure Ban n 102 89 88 Pulse Oximetry 94 94 Oxygen Delivery Me thod Room Air Oxygen Flow Rate Sepsis Recent Feve r Within 48 Hours No Sepsis New/Unexpla ined Change in Men nunu Status N/A Sepsis Action Take n by Nursing No Action Required 04/04/23 11:49 04/04/23 12:00 04/04/23 12:06 Temperature Temperature Source Pulse Rate 90 90 Pulse Rate from Sp O2 Sensor 88 Respiratory Rate 30 H Respiratory Effort / Characteristics Non-Labored Respiratory Depth Normal Blood Pressure 98/64 L Blood Pressure Ban n 75 Pulse Oximetry 92 Oxygen Delivery Me thod Oxygen Flow Rate Sepsis Recent Feve r Within 48 Hours Sepsis New/Unexpla ined Change in Men nunu Status Sepsis Action Take n by Nursing 04/04/23 12:30 04/04/23 12:38 04/04/23 13:00 Temperature Temperature Source Pulse Rate 85 148 H 81 Pulse Rate from Sp O2 Sensor 85 81 Respiratory Rate 33 H 19 Respiratory Effort / Characteristics Respiratory Depth Blood Pressure 110/57 L 119/61 Blood Pressure Ban n 74 80 Pulse Oximetry 90 92 Oxygen Delivery Me thod Oxygen Flow Rate 2 Sepsis Recent Feve r Within 48 Hours Sepsis New/Unexpla ined Change in Men nunu Status Sepsis Action Take n by Nursing Physical Exam: Physical Exam GENERAL: He is oriented to person, place, and time. He appears well-developed and well-nourished. He does not appear distressed. HENT: Exam performed. - Head: Normocephalic and atraumatic. - Right Ear: External ear normal. No mastoid erythema - Left Ear: External ear normal. No mastoid erythema - Mouth/Throat: The oropharynx is clear and moist. No trismus in the jaw. No dental abscesses or uvula swelling. No oropharyngeal exudate or tonsillar abscesses. EYES: Conjunctivae and EOM are normal. Pupils are equal, round, and reactive to light. Right eye exhibits no discharge. Left eye exhibits no discharge. No scleral icterus. NECK: Normal range of motion. Neck supple. No JVD present. No spinous process tenderness present. No carotid bruit present. No rigidity. No tracheal deviation and normal range of motion present. No Brudzinski's sign and no Kernig's sign noted. CV: Tachycardic rate, regular rhythm, normal heart sounds and intact distal pulses. There is no peripheral edema. Palpable radial pulses bue. PULM/CHEST: Effort normal and breath sounds normal. No respiratory distress. No stridor. He has no wheezes. He has no rales. ABD: The abdomen is soft. He has no distension. No mass is present. There is no tenderness. There is no rebound, no guarding, no Castro's sign and no tenderness at McBurney's point. Rovsig negative. MUSC/SKEL: Normal range of motion. There is no peripheral edema, tenderness or deformity. LYMPH: No cervical adenopathy. NEURO: He is alert and oriented to person, place, and time. He has normal strength. No cranial nerve deficit or sensory deficit. Coordination and gait normal. GCS eye subscore is 4. GCS verbal subscore is 5. GCS motor subscore is 6. Cerebellar tests wnl. SKIN: Skin is warm and dry. He is not diaphoretic. PSYCH: He has a normal mood and affect. Behavior is normal. Judgment and thought content normal. Course Course 1114: The patient was evaluated in room B4. A complete history and physical exam was performed Cardiac monitoring: An order was placed for continuous cardiac monitoring. The monitor shows a rate of 100 with sinus rhythm interpreted by me 1300: Nursing informed me that the patient had an episode of a sinus tachycardia that his oxygen saturation dropped. Patient placed on supplemental oxygen via nasal cannula 2 L which improved the patient's oxygen saturation. Labs show an DADA with creatinine up to 3.67 up from 2.1 one month ago. Magnesium 1.4. Magnesium repletion will be started in the emergency department. 1356: Vital signs stable supplemental oxygen via nasal cannula. Patient is positive for enterovirus rhinovirus as well as influenza. Patient be treated with Tamiflu renal dosage. Patient be admitted to the [facility] hospitalist team. Administered Medications Discontinued Medications Sodium Chloride (Nss) 1,000 mls @ 999 mls/hr IV .[id number] JEAN MARIE Stop: 04/04/23 12:30 Last Infusion: 04/04/23 12:42 Dose: Infused Documented By: Admin: 04/04/23 11:23 Dose: 999 mls/hr Documented By: ANTONIETA Acetaminophen (Ofirmev) 1,000 mg in 100 mls @ 400 mls/hr IV NOW STA Stop: 04/04/23 11:33 Last Infusion: 04/04/23 11:45 Dose: Infused Documented By: Admin: 04/04/23 11:23 Dose: 400 mls/hr Documented By: ANTONIETA Medical Decision Making Medical Records Attestation: I reviewed the patient's medical records. External medical records obtained from the [employer] EMR and reviewed. Patient had blood work done 1 month ago at [facility] which showed a creatinine of 2.1. Laboratory Data Attestation: I reviewed the patient's lab results. 04/04/23 11:24 04/04/23 11:24 Lab Results 04/04/23 04/04/23 Range/Units 11:20 11:24 WBC 11.16 H (4.8-10.8) K/ul RBC 4.42 L (4.70-6.10) M/uL Hgb 12.5 L (14.0-18.0) g/dl Hct 36.7 L (42.0-52.0) % MCV 83.0 (80.0-100.0) fL MCH 28.3 (25.0-34.0) pg MCHC 34.1 (32.0-36.0) g/dL RDW Std Deviation 38.5 (36.4-46.3) fL RDW Coeff of William 12.7 (11.5-14.5) % Plt Count 203 (130-400) K/uL MPV 10.8 (9.4-12.4) fL Immature Gran % (Auto) 0.6 % Neut % (Auto) 87.0 % Lymph % (Auto) 4.2 % Clarke % (Auto) 8.0 % Eos % (Auto) 0.0 % Baso % (Auto) 0.2 % Neut # (Auto) 9.71 H (1.40-6.50) K/uL Lymph # (Auto) 0.47 L (1.20-3.40) K/uL Clarke # (Auto) 0.89 H (0.11-0.59) K/uL Eos # (Auto) 0.00 (0.00-0.50) K/uL Baso # (Auto) 0.02 (0.00-0.20) K/uL Immature Gran # (Auto) 0.07 (0.01-0.20) K/uL PT 10.9 (9.0-12.0) Seconds INR 1.0 (0.9-1.1) APTT 33 H (21-31) Seconds PTT Ratio 1.2 Sodium 132 L (136-145) mmol/L Potassium 3.4 L (3.5-5.1) mmol/L Chloride 97 L (98-107) mmol/L Carbon Dioxide 21 (21-32) mmol/L Anion Gap 14 H (3-11) BUN 32 H (6-23) mg/dl Creatinine 3.67 H (0.6-1.4) mg/dl Est Cr Clr Drug Dosing 26.5 ml/min Est GFR ( Amer) 24.0 ml/min Est GFR (Non-Af Amer) 20.7 ml/min BUN/Creatinine Ratio 8.7 L (10-20) Glucose 151 H (70-99(Fasting)) mg/dl Lactate 1.2 (0.4-2.0) mmol/L Calcium 9.1 (8.6-10.3) mg/dl Magnesium 1.4 L (1.7-2.4) mg/dl Total Bilirubin 0.4 (0.2-1.0) mg/dl Direct Bilirubin 0.1 (0-0.2) mg/dl AST 30 (13-39) U/L ALT 17 (7-52) U/L Alkaline Phosphatase 42 (34-104) U/L Troponin I High Sens 11.5 (0-20) pg/ml Total Protein 7.1 (6.0-8.3) gm/dl Albumin 4.4 (3.4-5.0) gm/dl Procalcitonin 0.78 H (0-0.5) ng/ml Nasal Influ A H1 2008 PCR DETECTED A* (NotDetected) Adenovirus (PCR) Not Detected (NotDetected) B. pertussis DNA (PCR) Not Detected (NotDetected) B.parapertussis DNA PCR Not Detected (NotDetected) C. pneumoniae DNA (PCR) Not Detected (NotDetected) Coronavirus OC43 (PCR) Not Detected (NotDetected) Coronavirus HKU1 (PCR) Not Detected (NotDetected) Coronavirus 229E (PCR) Not Detected (NotDetected) SARS-CoV-2 (PCR) Not Detected (NotDetected) Coronavirus NL63 (PCR) Not Detected (NotDetected) Human Metapneumovir PCR Not Detected (NotDetected) Influenza Type B (PCR) Not Detected (NotDetected) M. pneumoniae (PCR) Not Detected (NotDetected) Parainfluenza 1 (PCR) Not Detected (NotDetected) Parainfluenza 2 (PCR) Not Detected (NotDetected) Parainfluenza 3 (PCR) Not Detected (NotDetected) Parainfluenza 4 (PCR) Not Detected (NotDetected) RSV (PCR) Not Detected (NotDetected) Entero/Rhino (PCR) DETECTED A* (NotDetected) Imaging Data Attestation: I personally reviewed and interpreted this imaging study as follows: My Impression: Chest x-ray negative. Airway clear. No pneumothorax. No consolidation. No cardiomegaly or cephalization.. No free air under the diaphragm. No fractures of the skeletal structures. Radiologist's Impression: Chest X-Ray 04/04/23 11:19 XR chest 1V portable HISTORY: 32 years-old Male Sepsis COMPARISON: 07/17/2021 TECHNIQUE: AP view of the chest FINDINGS: Cardiomediastinal and hilar silhouettes are within normal limits. No pneumothorax, pleural effusion or airspace consolidation. The bones appear grossly intact. IMPRESSION: No acute process. ACT 112: Negative or not required by law. The above report was generated using voice recognition software. It may contain grammatical, syntax or spelling errors. Electronically signed by: Josiah Luong M.D. 04/04/2023 11:58 AM ECG Data Attestation: I personally reviewed and interpreted this ECG as follows: Rate (beats per minute): 92 Rhythm: sinus with SA Findings: no ST depression, no ST elevation or no prolonged QT Additional Comments: EKG #2 at 1246: Sinus rhythm with a rate of 82. [place] QRS and QTc intervals within normal limits. No ST elevation or ST depression. [facility] Narrative 1114: The patient was evaluated in room B4. A complete history and physical exam was performed Cardiac monitoring: An order was placed for continuous cardiac monitoring. The monitor shows a rate of 100 with sinus rhythm interpreted by me 1300: Nursing informed me that the patient had an episode of a sinus tachycardia that his oxygen saturation dropped. Patient placed on supplemental oxygen via nasal cannula 2 L which improved the patient's oxygen saturation. Labs show an DADA with creatinine up to 3.67 up from 2.1 one month ago. Magnesium 1.4. Magnesium repletion will be started in the emergency department. 1356: Vital signs stable supplemental oxygen via nasal cannula. Patient is positive for enterovirus rhinovirus as well as influenza. Patient be treated with Tamiflu renal dosage. [facility] & Plan Hypoxia, DADA (acute kidney injury), Hypomagnesemia, Influenza, Enterovirus infection, Rhinovirus infection Critical Care Time Critical Care Time: Yes Total Critical Care Time: 67 I have personally spent greater than 67 minutes of critical care time in the direct management of this patient. This includes bedside care, interpretation of diagnostic studies, and testing, discussion with consultants, patient, and family members, and other required patient management activities. This 67 minutes is in excess of all separately billable procedures. Discharge Plan Visit Data Chief Complaint: Cardiac Assessment Stated Complaint: CHEST PAIN, SHORTNESS OF BREATH ED Provider: Feliz [place] Discharge Problem: Hypoxia, DADA (acute kidney injury), Hypomagnesemia, Influenza, Enterovirus infection, Rhinovirus infection Patient Disposition: Admitted As Inpatient Forms Stand Alone Forms: My [facility] [place] Prescriptions Prescriptions: No Action amlodipine [Norvasc] 5 mg tablet 10 mg PO QAM Patient Comments: currently on hold acetaminophen [Tylenol Extra Strength] 500 mg Tablet 1,000 mg PO DIRECTED PRN (Reason: Pain) mycophenolate mofetil 250 mg capsule 250 mg PO UD Rx Instructions: 2 caps AM, 2 caps hs clopidogrel 75 mg tablet 75 mg PO QAM aspirin 81 mg tablet,delayed release (DR/EC) 81 mg PO QAM omeprazole 20 mg capsule,delayed release(DR/EC) 20 mg PO QAM tacrolimus 1 mg capsule 1 mg PO UD Rx Instructions: 3 mg (3 x1 mg) qam, 2 mg (2x 1mg) pm. Referrals Referrals: London Minor MD [Primary Care Provider] -
[2023-04-04 11:43] LABS: Basophils # (auto) 0.02 K/uL (0.00-0.20); Basophils % (auto) 0.2 %; Hematocrit (blood only) 36.7 % (42.0-52.0); Hemoglobin 12.5 g/dl (14.0-18.0); Immature Granulocytes # (auto) 0.07 K/uL (0.01-0.20); Immature Granulocytes % (auto) 0.6 %; Lymphocytes # (auto) 0.47 K/uL (1.20-3.40); Lymphocytes % (auto) 4.2 %; Mean Corpuscular Hemoglobin 28.3 pg (25.0-34.0); Mean Corpuscular Hgb Conc 34.1 g/dL (32.0-36.0); Mean Platelet Volume 10.8 fL (9.4-12.4); Monocytes # (auto) 0.89 K/uL (0.11-0.59); Neutrophils # (auto) 9.71 K/uL (1.40-6.50); Platelet Count 203 K/uL (130-400); RDW Coefficient of Variation 12.7 % (11.5-14.5); RDW Standard Deviation 38.5 fL (36.4-46.3); Red Blood Count 4.42 M/uL (4.70-6.10); White Blood Count 11.16 K/ul (4.8-10.8)
--- NOTE | 2023-04-04 12:00 | XRay Report ---
XR chest 1V portable HISTORY: 32 years-old Male Sepsis COMPARISON: 07/17/2021 TECHNIQUE: AP view of the chest FINDINGS: Cardiomediastinal and hilar silhouettes are within normal limits. No pneumothorax, pleural effusion o r airspace consolidation. The bones appear grossly intact. IMPRESSION: No acute process. ACT 112: Negative or not required by law. The above report was generated using voice recognition software. It may contain grammatical, syntax o r spelling errors. Electronically signed by: Josiah Luong M.D. 04/04/2023 11:58 AM
[2023-04-04 12:02] LABS: Albumin Level 4.4 gm/dl (3.4-5.0); BUN Creatinine Ratio 8.7 (10-20); Bilirubin Direct 0.1 mg/dl (0-0.2); Bilirubin,Total 0.4 mg/dl (0.2-1.0); Calcium 9.1 mg/dl (8.6-10.3); Creatinine Clr Calc Pharmacy 26.5 ml/min; Est GFR (Non-African American) 20.7 ml/min; Magnesium 1.4 mg/dl (1.7-2.4); Potassium 3.4 mmol/L (3.5-5.1); Total Protein 7.1 gm/dl (6.0-8.3)
[2023-04-04 12:08] LABS: Troponin I High Sensitivity 11.5 pg/ml (0-20)
[2023-04-04 12:20] LABS: Partial Thromboplastin Ratio 1.2; Partial Thromboplastin Time 33 Seconds (21-31); Prothrombin Time 10.9 Seconds (9.0-12.0)
[2023-04-04 13:33] LABS: Appearance Urine Turbid (Clear); Bacteria Urine Automated Negative (Negative); Bilirubin Urine Negative (Negative); Blood Urine 1+ (Negative); Color Urine Dark Yellow; Epithelial Cell Urine Auto >30 /lpf (0-5); Glucose Urine UA Negative (Negative); Ketones Urine Negative (Negative); Leukocyte Esterase Urine Negative (Negative); Nitrite Urine Negative (Negative); Protein Urine 2+ (Negative); RBC Urine Automated 0-4 /hpf (0-4); Specific Gravity Urine 1.021 (1.000-1.030); Urobilinogen Urine Negative (Negative)
[2023-04-04 13:36] LABS: Adenovirus PCR Not Detected (NotDetected); Bordetella parapertussis PCR Not Detected (NotDetected); Bordetella pertussis PCR Not Detected (NotDetected); Chlamydia pneumoniae PCR Not Detected (NotDetected); Coronavirus 229E PCR Not Detected (NotDetected); Coronavirus CoV-2 (COVID19)PCR Not Detected (NotDetected); Coronavirus HKU1 PCR Not Detected (NotDetected); Coronavirus NL63 PCR Not Detected (NotDetected); Coronavirus OC43PCR Not Detected (NotDetected); Human Metapneumovirus PCR Not Detected (NotDetected); Influenza B PCR Not Detected (NotDetected); Mycoplasma pneumoniae PCR Not Detected (NotDetected); Parainfluenza Virus 1 PCR Not Detected (NotDetected); Parainfluenza Virus 2 PCR Not Detected (NotDetected); Parainfluenza Virus 3 PCR Not Detected (NotDetected); Parainfluenza Virus 4 PCR Not Detected (NotDetected); Respiratory Syncytial VirusPCR Not Detected (NotDetected)
[2023-04-04 13:38] LABS: Influenza A (H1 2009) PCR DETECTED (NotDetected); Rhinovirus/Enterovirus PCR DETECTED (NotDetected)
[2023-04-04] MEDS: MAGNESIUM SULFATE / D5W 1 GM/100 ML BAG IV STA (14:04)
[2023-04-04 14:05] LABS: Amorphous Sediment Urine Present (None Prsent)
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
--- NOTE | 2023-04-04 16:47 | Ultrasound Report ---
US renal transplant w dop HISTORY: 32 years-old Male DADA on CKD acute on chronic kidney disease COMPARISON: CT 07/05/2021 TECHNIQUE: Multiple real-time sonographic images of the patient's renal transplant were obtained asse ssing grayscale appearance, color and spectral flow. FINDINGS: Right lower quadrant renal transplant measures 9.4 x 4.1 x 5.0 cm demonstrating no hydronephrosis. Resistive indices within the right kidney measuring up to 0.6 in the upper pole, 0.7 at the midpole a nd 0.8 within the inferior pole. Patent right renal artery and vein. Peak systolic velocities within the renal arterial anastomosis measure up to 222 cm/s, end-diastolic volumes of 70 cm/s. Peak systoli c velocities measure 63 cm/s within the proximal right renal artery. Patent iliac artery and vein. Decompressed urinary bladder is not well-visualized. IMPRESSION: 1. Unremarkable appearance of the right-sided renal transplant without hydronephrosis. 2. Patent renal artery and vein. 3. Elevated peak systolic velocities within the renal artery at the site of anastomosis may be techni janiya or represent developing renal arterial stenosis. Attention at follow-up recommended. ACT 112: Negative or not required by law. The above report was generated using voice recognition software. It may contain grammatical, syntax o r spelling errors. Electronically signed by: Josiah Luong M.D. 04/04/2023 4:45 PM
[2023-04-04] MEDS: OSELTAMIVIR PHOSPHATE SUSP 30 MG/5 ML UDP PO SCH (17:00)
[2023-04-04 17:24] LABS: Adenovirus F 40/41 PCR Not Detected (NotDetected); Astrovirus PCR Not Detected (NotDetected); Campylobacter PCR Not Detected (NotDetected); Cryptosporidium PCR Not Detected (NotDetected); Cyclospora cayetanensis PCR Not Detected (NotDetected); Entamoeba histolytica PCR Not Detected (NotDetected); Enteroaggregative E.coli(EAEC) Not Detected (NotDetected); Enterotoxigenic E.coli (ETEC) Not Detected (NotDetected); Giardia lamblia PCR Not Detected (NotDetected); Norovirus GI/GII PCR Not Detected (NotDetected); Plesiomonas shigelloides PCR Not Detected (NotDetected); Rotavirus A PCR Not Detected (NotDetected); Salmonella PCR Not Detected (NotDetected); Sapovirus PCR Not Detected (NotDetected); Shiga-like Toxin E.coli (STEC) Not Detected (NotDetected); Shigella/Enteroinvasive E.coli Not Detected (NotDetected); Vibrio cholerae PCR Not Detected (NotDetected); Vibrio species PCR Not Detected (NotDetected); Yersinia enterocolitica PCR Not Detected (NotDetected)
[2023-04-04] MEDS ORDERED: TACROLIMUS 1 MG CAP PO SCH (17:27)
[2023-04-04] MEDS ORDERED: POLYETHYLENE (MIRALAX) 17 GM PACK PO PRN (17:27)
[2023-04-04 17:40] LABS: Enteropathogenic E.coli (EPEC) DETECTED (NotDetected)
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
[2023-04-04] MEDS: cefTRIAXone SODIUM 2,000 MG in DEXTROSE 5 % MINI-B 50 ML IV SCH (18:30)
[2023-04-04] MEDS: ONDANSETRON INJ 2 MG/ML 2 ML VIAL IV PRN (18:33)
[2023-04-04] MEDS: NSS + 20MEQ KCL 20 MEQ/1,000 ML BAG IV SCH (20:11)
[2023-04-04] MEDS: ACETAMINOPHEN 325 MG TAB PO PRN (20:19)
[2023-04-04] MEDS: TACROLIMUS 1 MG CAP PO SCH (20:20)
[2023-04-04] MEDS: HEPARIN SOD 5,000 UNIT/0.5 ML VIAL SQ SCH (20:27)
[2023-04-04] MEDS ORDERED: OSELTAMIVIR PHOSPHATE SUSP 30 MG/5 ML UDP PO SCH (21:00)
--- NOTE | 2023-04-04 21:54 | Electrocardiogram Report ---
Test Reason : Blood Pressure : / mmHG Vent. Rate : 082 BPM Atrial Rate : 082 BPM P-R Int : 138 ms QRS Dur : 092 ms QT Int : 348 ms P-R-T Axes : 055 075 068 degrees QTc Int : 406 ms Normal sinus rhythm Normal ECG When compared with ECG of 04-APR-2023 11:16, No significant change Confirmed by Gilberto Adkins ([id number]) on 04/04/2023 9:54:13 PM Referred By: REFERRED SELF Confirmed By:Gilberto Adkins
--- NOTE | 2023-04-04 21:54 | Electrocardiogram Report ---
Test Reason : Blood Pressure : / mmHG Vent. Rate : 092 BPM Atrial Rate : 092 BPM P-R Int : 136 ms QRS Dur : 090 ms QT Int : 318 ms P-R-T Axes : 056 080 077 degrees QTc Int : 393 ms Normal sinus rhythm When compared with ECG of 25-JUL-2021 09:26, No significant change Confirmed by Gilberto Adkins ([id number]) on 04/04/2023 9:53:57 PM Referred By: REFERRED SELF Confirmed By:Gilberto Adkins
--- NOTE | 2023-04-05 07:22 | Nephrology Progress Note ---
Date of Service April 05, 2023 Assessment & Plan (1) Acute on chronic renal failure: Plan: Improving Stage 1 nonoliguric DADA, though he is still spiking fevers. baseline creatinine 1.9-2. presented w/ creatinine 3.67. transient hypotension rebounding; F for most of the night > Tmax 38.7 on 04/05. low mag and low K likely from diarrhea. not tolerating po well and some N > Daily basic metabolic panel -f/u pending cultures >> mild hypokalemia and hyponatremia improving with fluid resuscitation>> will change normal saline with 20 mill equivalents potassium per liter to half-normal saline with 75 mill equivalent sodium bicarbonate per liter and 40 mill equivalents potassium per liter same rate (2) Kidney transplant recipient: Plan: >>>ENSURE TROUGH level of tacro drawn accurately >> lab has to be timed to be drawn between 11-12 hrs AFTER his PM tacro dose >> did d/w RN this AM and she will get lab to his room on time; note this is a send out lab and will take several days to post -daily bmp Continue tacrolimus current dose, same as outpatient -hold cellcept (3) Renal artery stenosis, transplant: Plan: not a definite diagnosis but concern on imaging; none of possible infarct findings from summer 2022 were seen on this study >needs to f/u on these imaging findings w/ transplant as OP Admission and Anticipated Discharge Date Admission Date: April 04, 2023 Subjective feels much improved; still w/ significant diarrhea, fecal urgency. no allograft pain; tolerating po; still w/ significant f Review of Systems 2 Review of Systems: All systems reviewed & are unremarkable except as noted in Subjective Physical Exam 2 Constitutional: well developed, well nourished, + ill appearing (but less so) and cooperative; no acute distress Eyes: EOM intact bilaterally ENMT: Ears: no external ear abnormality Nose: no external nose abnormality Mouth: + dry oral mucous membranes Neck: no nuchal rigidity Respiratory: normal respiratory effort (on 02nc) and + cough (frequent) A uscultation: lungs clear to auscultation bilaterally and + diminished lung sounds (chandler R posterior capellan); no wheezes Gastrointestinal (Abdomen): Inspection/Auscultation: normal bowel sounds P ercussion/Palpation: abdomen soft; abdomen nontender (including no tenderness over allograft) Musculoskeletal: Extremities: strength 5/5 throughout Skin: no rashes, warm and dry Psychiatric: Orientation: alert and oriented x 3 Results & Data Vital Signs (Past 12 Hours) Vital Signs Temp Pulse Pulse Resp BP Pulse Ox O2 Del Method 04/05/23 05:25 37.5 C 92 Room Air 04/05/23 03:22 38.7 C H 86 20 130/55 L 90 Room Air 04/05/23 01:20 77 04/05/23 00:08 94 Nasal Cannula 04/04/23 23:48 37.7 C H 92 H 19 115/61 04/04/23 20:15 38.4 C H 88 18 124/65 92 Room Air O2 Flow Rate 04/05/23 05:25 04/05/23 03:22 04/05/23 01:20 04/05/23 00:08 4 04/04/23 23:48 04/04/23 20:15 Laboratory Results 04/05/23 07:13 04/05/23 07:13
[2023-04-05 07:51] LABS: Hematocrit (blood only) 33.9 % (42.0-52.0); Hemoglobin 11.4 g/dl (14.0-18.0); Mean Corpuscular Hemoglobin 28.1 pg (25.0-34.0); Mean Corpuscular Hgb Conc 33.6 g/dL (32.0-36.0); Mean Corpuscular Volume 83.5 fL (80.0-100.0); Mean Platelet Volume 10.7 fL (9.4-12.4); Platelet Count 192 K/uL (130-400); RDW Coefficient of Variation 12.9 % (11.5-14.5); RDW Standard Deviation 39.3 fL (36.4-46.3); Red Blood Count 4.06 M/uL (4.70-6.10); White Blood Count 6.99 K/ul (4.8-10.8)
[2023-04-05 07:57] LABS: Albumin Globulin Ratio 1.5 (0.9-2); Albumin Level 3.7 gm/dl (3.4-5.0); Bilirubin,Total 0.3 mg/dl (0.2-1.0); Calcium 8.7 mg/dl (8.6-10.3); Creatinine Clr Calc Pharmacy 38.6 ml/min; Est GFR (Non-African American) 33.6 ml/min; Globulin 2.4 gm/dl (2.5-4.0); Magnesium 1.8 mg/dl (1.7-2.4); Potassium 3.9 mmol/L (3.5-5.1); Total Protein 6.1 gm/dl (6.0-8.3)
[2023-04-05] MEDS: TACROLIMUS 1 MG CAP PO SCH (08:20)
[2023-04-05] MEDS: ASPIRIN 81 MG ECTAB PO SCH (08:20)
[2023-04-05] MEDS: CLOPIDOGREL BISULFATE 75 MG TAB PO SCH (08:20)
[2023-04-05] MEDS: PANTOprazole 40 MG TAB PO SCH (08:20)
[2023-04-05] MEDS: AZITHROMYCIN 250 MG TAB PO SCH (09:15)
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
[2023-04-05] MEDS: SODIUM BICARBONATE 8.4% 75 MEQ, POTASSIUM CHLORIDE 40 MEQ in SODIUM CHLORIDE 0.45 % 1,0... IV SCH (14:57)
[2023-04-05] MEDS: OSELTAMIVIR PHOSPHATE SUSP 30 MG/5 ML UDP PO SCH (20:43)
[2023-04-06 06:34] LABS: Basophils # (auto) 0.01 K/uL (0.00-0.20); Basophils % (auto) 0.2 %; Eosinophils # (auto) 0.01 K/uL (0.00-0.50); Eosinophils % (auto) 0.2 %; Hematocrit (blood only) 31.2 % (42.0-52.0); Hemoglobin 10.9 g/dl (14.0-18.0); Immature Granulocytes # (auto) 0.01 K/uL (0.01-0.20); Immature Granulocytes % (auto) 0.2 %; Lymphocytes # (auto) 0.72 K/uL (1.20-3.40); Lymphocytes % (auto) 14.8 %; Mean Corpuscular Hemoglobin 28.8 pg (25.0-34.0); Mean Corpuscular Hgb Conc 34.9 g/dL (32.0-36.0); Mean Corpuscular Volume 82.5 fL (80.0-100.0); Mean Platelet Volume 11.3 fL (9.4-12.4); Monocytes # (auto) 0.85 K/uL (0.11-0.59); Monocytes % (auto) 17.5 %; Neutrophils # (auto) 3.26 K/uL (1.40-6.50); Neutrophils % (auto) 67.1 %; Platelet Count 241 K/uL (130-400); RDW Coefficient of Variation 13.1 % (11.5-14.5); RDW Standard Deviation 39.8 fL (36.4-46.3); Red Blood Count 3.78 M/uL (4.70-6.10); White Blood Count 4.86 K/ul (4.8-10.8)
[2023-04-06 06:56] LABS: BUN Creatinine Ratio 9.1 (10-20); Calcium 8.3 mg/dl (8.6-10.3); Creatinine Clr Calc Pharmacy 51.1 ml/min; Est GFR (African American) 54.6 ml/min; Est GFR (Non-African American) 47.2 ml/min; Potassium 4.1 mmol/L (3.5-5.1)
--- NOTE | 2023-04-06 09:44 | Nephrology Progress Note ---
Date of Service April 06, 2023 Assessment & Plan Admission and Anticipated Discharge Date Admission Date: April 04, 2023 Subjective Assessment & Plan (1) Acute on chronic renal failure: Plan: nonoliguric DADA and improving rapidly. Now back down to baseline creatinine 1.9-2. Daily basic metabolic panel All lytes are better today Can d/c Iv fluids (2) Kidney transplant recipient: Plan: Continue tacrolimus current dose, same as outpatient restart Cellcept in 2 days--from Thursday (3) Renal artery stenosis, transplant: Plan: not a definite diagnosis but concern on imaging; none of possible infarct findings from summer 2022 were seen on this study needs to f/u on these imaging findings w/ transplant as OP Subjective feels much improved. Almost no diarrhea. No allograft pain. Had run of A flutter last night and pending Cards evaluation Review of Systems Review of Systems: All systems reviewed & are unremarkable except as noted in Subjective Physical Exam Constitutional: well developed, well nourished, + ill appearing (but less so) and cooperative; no acute distress Eyes: EOM intact bilaterally ENMT: Ears: no external ear abnormality Nose: no external nose abnormality Mouth: + dry oral mucous membranes Neck: no nuchal rigidity Respiratory: normal respiratory effort (on 02nc) and + cough (frequent) Auscultation: lungs clear to auscultation bilaterally and + diminished lung sounds (chandler R posterior capellan); no wheezes Gastrointestinal (Abdomen): Inspection/Auscultation: normal bowel sounds Percussion/Palpation: abdomen soft; abdomen nontender (including no tenderness over allograft) Musculoskeletal: Extremities: strength 5/5 throughout Skin: no rashes, warm and dry Psychiatric: Orientation: alert and oriented x 3 Results & Data Vital Signs (Past 12 Hours) Vital Signs Temp Pulse Pulse Resp BP Pulse Ox O2 Del Method 04/06/23 08:15 Room Air 04/06/23 07:40 37.7 C H 75 16 118/78 93 Room Air 04/06/23 03:37 37.6 C H 78 20 120/79 93 Room Air 04/06/23 00:00 73 04/05/23 23:56 37.7 C H 81 20 113/61 92 Room Air
--- NOTE | 2023-04-06 09:51 | Cardiology Consultation ---
Date of Consultation April 06, 2023 Assessment & Plan (1) Atrial fib/flutter, transient: (2) Influenza: (3) Hypomagnesemia: (4) DADA (acute kidney injury): Plan Patient with 2 episodes of non sustained atrial flutter since admission in setting of Acute influenza, enterovirus, rhinovirus, DADA/dehydration, and hypomagnesium. Both episodes lasting only several minutes and resolving spontaneously. Patient does admit to having intermittent palpitations at home but no known a trial fibrillation. 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 No recurrent or old infarcts noted on this imaging. Possible renal artery stenosis noted? He has low [id number] score of 1 (HTN) but if prior renal infarct is considered embolic (or related to afib) his [id number] could be 3, requiring [facility] anticoagulation? For now will start metoprolol succinate 25 mg -1/2 tablet daily to suppress arrhythmias. Ongoing supportive care for illness recommended Keep magnesium > 2.0 and potassium 4-5. Consider outpatient ZIO monitor for further evaluation of atrial arrhythmias once acute illness resolves. echocardiogram pending. Case discussed with Dr. Perez I spent a total of 50 minutes on the date of service in preparation, delivery, and documentation of the care provided to this patient, excluding any time spent in the performance of separately billed services. Anjelica Mckee PA-C Department of Cardiology, [facility] This chart was completed in part utilizing Speech Voice Recognition Software. Grammatical errors, random word insertions, pronoun errors, and incomplete sentences are an occasional consequence of this system due to software limitations, ambient noise, and hardware issues. Any formal questions or concerns about the content, text, or information contained within the body of th is dictation should be directly addressed to the provider for clarification. Supervising Physician Co-Signing Physician Notes I have reviewed the advance practitioner's documentation, and I agree with, and take responsibility for the plan of care. 32-year-old male with history of renal transplant admitted with acute r hinovirus, enterovirus, and influenza A infection. Renal function improving since admission. Telemetry demonstrating 2 short runs of atrial flutter with 2- 1 conduction. Both episodes lasting less than 4 minutes. No associated symptoms. ECG was not obtained during dysrhythmia. Denies palpitations, chest discomfort, or unusual shortness of breath. Requesting discharge as soon as possible. Consumed a energy drink earlier today as well. Reports drinking at least 1 red bull daily in the outpatient setting. PE: VSS. Gen: NAD, AAOx3. Heart: Regular rhythm, normal S1-S2. No murmur. Lungs: Clear bilateral, no rales, rhonchi, wheeze. Abdomen: Soft, nontender, nondistended. No rebound or guarding. Extremities: No edema. Neuro: No focal motor deficit. A/P: 32-year-old male with history of renal transit admitted secondary to acute influenza and enterovirus infection with superimposed acute on chronic kidney injury. Creatinine improved. 2 short runs of paroxysmal atrial flutter versus atrial tachycardia recorded on telemetry. Patient's [id number] score equals 0. There was a concern regarding a possible renal infarct on prior imaging. This was discussed with both the nephrology team and the hospitalist. Further investigation and discussion with the transplant team via the hospitalist was undertaken. Per that discussion I was informed that the questionable infarct wa s most likely related to patient's transplant status and not a embolic event. Recommend addition of low-dose beta-lidya therapy and further evaluation of atrial flutter versus atrial tachycardia via 14-day ZIO monitor in the outpatient setting. Instructed to discontinue intake of stimulants, avoid use of illicit substances and alcohol. Continue aspirin and clopidogrel as directed by the transplant team. Baseline echocardiogram essentially within normal limits demonstrating preserved LV function, no significant valvular pathology, and normal left atrial size. History of Present Illness Reason for Consultation: Atrial fib/flutter Requesting Physician: Dr. Dao Attending Physician: Dr. Perez History of Present Illness Patient is a 32 year old male with complex history below, admitted to [facility] for influenza, enterovirus, and DADA with history of kidney transplant. history includes: 1. History of right renal transplant at [facility] in Mar 2022 2. hypertension 3. Chronic tobacco abuse 4. Concerns regarding possible small infarcts to transplanted kidney in August 2022 in setting of acute illness. No cardiac history. Patient evaluated one time by Cardiology in September 2021 for pre renal transplant evaluation. He underwent dobutamine stress echo at that time which demonstrated Normal LVEF at 55-59%, no inducible ischemia, no significant valvular disease, with atrial septal aneurysm but no PFO. Patient admitted for weakness, dehydration, flu like symptoms, diarrhea. Found to have DADA and started on IV fluids. Nephrology consulted and renal function improving with IV fluids. Patient reports still having weakness but slowly improving. Diarrhea improved. 2 nights ago patient had short 3 min run of atrial flutter with RVR, resolving spontaneously. This morning patient had recurrent episode of atrial flutter RVR, also resolving without intervention, lasting approx 3 minutes. He had no significant symptoms during this time. He does admit to having palpitations at home at times. Often feels his heart racing and "pounding" in his chest. Lasts several minutes and resolved. No chest pain. No SOB. BP has been controlled. Magnesium was low yesterday. No history of stroke but there was a mention of having a possible small infarct to his transplanted kidney in July 2022. Details uncertain. Patient on plavix since transplant? At time of consult, patient resting in bed comfortably. Voices no acute complaints. Hoping to go home soon. Allergies Allergy/AdvReac Type Severity Reaction Status Date / Time banana Allergy Mild Heartburn Unverified 04/04/23 13:40 Home Medications Medication Instructions Recorded Confirmed Type amlodipine 5 mg tablet (Norvasc) 10 mg PO QAM 07/27/20 04/04/23 History acetaminophen 500 mg tablet 1,000 mg PO DIRECTED PRN Pain 07/05/21 04/04/23 History (Tylenol Extra Strength) aspirin 81 mg tablet,delayed 81 mg PO QAM 04/04/23 04/04/23 History release clopidogrel 75 mg tablet 75 mg PO QAM 04/04/23 04/04/23 History mycophenolate mofetil 250 mg 250 mg PO UD 04/04/23 04/04/23 History capsule omeprazole 20 mg capsule,delayed 20 mg PO QAM 04/04/23 04/04/23 History release tacrolimus 1 mg capsule, 1 mg PO UD 04/04/23 04/04/23 History immediate-release azithromycin 250 mg tablet 500 mg (2 x 250 mg) PO QAM 1 day 04/06/23 Rx #2 tabs metoprolol succinate 25 mg 12.5 mg (1/2 x 25 mg) PO QAM #30 04/06/23 Rx tablet,extended release 24 hr tabs oseltamivir 6 mg/mL oral 30 mg (5 mL) PO BID 3 days #30 mL 04/06/23 Rx suspension (Tamiflu) Patient History Medical History (Updated 04/06/23 @ 12:54 by Anjelica Mckee PA-C) Immunocompromised Nonadherence to medication Hypertensive urgency History of COVID-19 07/23/21; home test, then postive pcr @ [facility]- no symptoms - no hospitalization- no current issues Nephrolithiasis HTN (hypertension) Surgical History (Updated 04/04/23 @ 15:18 by Meghana Dalal PA-C) Kidney transplant recipient R renal transplant at [facility] 03/24 Status post biopsy of kidney [place] teeth extracted Family History Father Kidney stone Social History Smoking Status: Light tobacco smoker Tobacco Type: Cigarettes Cigarettes Per Day: 6 cigs per day; Second Hand Exposure: No; Do You Dip or Chew Tobacco: No; Tobacco Cessation Education Requested by Patient: No Hx Alcohol Use: Yes Alcohol type: beer Hx Substance Use: Yes Last Used Substance: Days (ago) Substance Use Type Other:: marijuana 2-3 times per day Preferred Language: Nicaraguan Communication Ability: Effective [employer] Required: No Beliefs That Will Affect Care: None Current Living Situation: Spouse Other Information That Helps Us Care for You: No Feels Safe at Home: Yes Safety Concerns: Feels Safe At This Time Assistive Devices: None Review of Systems Review of Systems: All systems reviewed & are unremarkable except as noted in HPI & below Physical Exam Constitutional: WD/WN, vitals as above well developed; no acute distress Neck: trachea midline, no thyromegaly Respiratory: normal respiratory effort, lungs clear to auscultation no respiratory distress Auscultation: lungs clear to auscultation bilaterally Cardiovascular: Rate/Rhythm: regular rate and regular rhythm Heart Sounds: normal S1 and normal S2; no murmur Vessels: no JVD Extremities: no edema Gastrointestinal (Abdomen): normal bowel sounds, soft, nontender, no hepatosplenomegaly Skin: no rashes, warm and dry Neurologic: PERRL, EOMI, accommodation nl, no face palsy, no dysarthria Results & Data Vital Signs (Past 12 Hours) Vital Signs Temp Pulse Pulse Resp BP Pulse Ox O2 Del Method 04/06/23 08:15 Room Air 04/06/23 07:40 37.7 C H 75 16 118/78 93 Room Air 04/06/23 03:37 37.6 C H 78 20 120/79 93 Room Air 04/06/23 00:00 73 04/05/23 23:56 37.7 C H 81 20 113/61 92 Room Air Laboratory Results CBC 04/06/23 Range/Units 06:03 WBC 4.86 (4.8-10.8) K/ul RBC 3.78 L (4.70-6.10) M/uL Hgb 10.9 L (14.0-18.0) g/dl Hct 31.2 L (42.0-52.0) % Plt Count 241 (130-400) K/uL Neut # (Auto) 3.26 (1.40-6.50) K/uL Lymph # (Auto) 0.72 L (1.20-3.40) K/uL Holt # (Auto) 0.85 H (0.11-0.59) K/uL Eos # (Auto) 0.01 (0.00-0.50) K/uL Baso # (Auto) 0.01 (0.00-0.20) K/uL Comprehensive Metabolic Panel 04/06/23 Range/Units 06:03 Sodium 137 (136-145) mmol/L Potassium 4.1 (3.5-5.1) mmol/L Chloride 108 H (98-107) mmol/L Carbon Dioxide 22 (21-32) mmol/L BUN 17 (6-23) mg/dl Creatinine 1.86 H D (0.6-1.4) mg/dl Glucose 109 H (70-99(Fasting)) mg/dl Calcium 8.3 L (8.6-10.3) mg/dl Intake and Output 04/05/23 04/06/23 04/06/23 22:59 06:59 14:59 Intake Total 290 / 2773.416 1181.333 / 2773.416 Balance 290 / 2773.416 1181.333 / 2773.416 Intake: IV 50 / 2333.416 981.333 / 2333.416 Sodium Bicarbonate 8.4% 75 meq 981.333 / 981.333 Potassium Chloride 40 meq In Sodium Chloride 0.45 % 1,000 ml @ 80 mls/hr IV .[id number] [facility] Rx #:[id number] [id number] SODIUM 2,000 mg In 50 / 50 Dextrose 5 % Mini-B 50 ml @ 100 mls/hr IV Q24H [facility] Rx#: [id number] Oral 240 / 440 200 / 440 Other: Weight 62.8 kg Weight Measurement Method Built in [facility] Diagnostic Findings Telemetry reviewed: 04/05 at 12:45 AM- 4-5 min run of atrial flutter RVR, with spontaneous conversion to NSR. 04/06 at 8:07 AM - 3 min run of atrial flutter RVR, with spontaneous conversion to NSR Otherwise NSR in the 's with rare PVC EKG reviewed from 04/04/23: NSR, normal EKG Echocardiogram pending from this admission Dobutamine stress echo report reviewed from September 2021: Normal LVEF at 55-59% no significant valvular disease An atrial septal aneurysm is present No PFO noted Medications Administered Current Inpatient Medications Acetaminophen (Acetaminophen 325 Mg Tab) 650 mg PO Q4H PRN PRN Reason: Pain or Fever Stop: 05/04/23 17:26 Last Admin: 04/05/23 14:56 Dose: 650 mg Aspirin (Aspirin 81 Mg Ectab) 81 mg PO [facility] Stop: 05/05/23 08:59 Last Admin: 04/06/23 07:44 Dose: 81 mg Azithromycin (Azithromycin 250 Mg Tab) 500 mg PO [facility] Stop: 04/07/23 09:01 Last Admin: 04/06/23 07:44 Dose: 500 mg Clopidogrel Bisulfate (Clopidogrel Bisulfate 75 Mg Tab) 75 mg PO [facility] Stop: 05/05/23 08:59 Last Admin: 04/06/23 07:44 Dose: 75 mg Heparin Sodium (Porcine) (Heparin Sod 5,000 Unit/0.5 Ml Vial) 5,000 units SQ Q8 [facility] Stop: 05/04/23 21:59 Last Admin: 04/06/23 05:59 Dose: Not Given Ceftriaxone Sodium 2,000 mg/ (Dextrose) 50 mls @ 100 mls/hr IV Q24H [facility]; Protocol Stop: 04/06/23 17:59 Last Infusion: 04/05/23 18:11 Dose: Infused Sodium Bicarbonate 75 meq/Potassium Chloride 40 meq/Sodium Chloride 1,095 mls @ 80 mls/hr IV .[id number] [facility] Stop: 05/05/23 12:59 Last Admin: 04/06/23 03:13 Dose: 80 mls/hr Metoprolol Succinate (Metoprolol Succ 25mg Ext Rel Tab) [facility]: 05/06/23 10:44 Last Admin: 04/06/23 11:32 Dose: 12.5 mg Ondansetron HCl (Ondansetron Inj 2 Mg/Ml 2 Ml Vial) 4 mg IV Q6H PRN PRN Reason: Nausea Stop: 05/04/23 17:26 Last Admin: 04/05/23 20:42 Dose: 4 mg Oseltamivir Phosphate (Oseltamivir Phosphate Susp 30 Mg/5 Ml Udp) 30 mg PO BID [facility]; Protocol Stop: 04/09/23 20:59 Last Admin: 04/06/23 07:44 Dose: Not Given Pantoprazole Sodium (Pantoprazole 40 Mg Tab) 40 mg PO [facility] Stop: 05/05/23 08:59 Last Admin: 04/06/23 07:44 Dose: 40 mg Polyethylene Glycol (Polyethylene (Miralax) 17 Gm Pack) 17 gm PO DAILY PRN PRN Reason: Constipation Stop: 05/04/23 17:26 Tacrolimus (Tacrolimus 1 Mg Cap) [facility] Stop: 05/05/23 08:59 Last Admin: 04/06/23 07:44 Dose: 3 mg Tacrolimus (Tacrolimus 1 Mg Cap) 2 mg PO QPM [facility] Stop: 05/04/23 20:59 Last Admin: 04/05/23 20:25 Dose: 2 mg
[2023-04-06] MEDS: METOPROLOL SUCC 25MG EXT REL TAB PO SCH (11:32)
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
== END 2023-04-06 16:32 | disposition home or self-care (01) | DRG 194 ==
LOC: ED 11:07 → 2N 15:05